=== PATIENT | female | born 1945 | race Caucasian/White ===

== ENCOUNTER → 2018-05-16 14:47 | Outpatient (CLI) | payer MEDICARE, SELFPAY ==
--- NOTE | 2018-05-16 15:44 | CT_ITS ---
CT abdomen pelvis w con CLINICAL INDICATION: Evaluate cecal mass seen on recent colonoscopy ITS.REASON: CECAL MASS ORDERING PHYSICIAN: Ha Arroyo MD PATIENT AGE: 73 years COMPARISON: 09/25/2008 TECHNIQUE: Axial images obtained with sagittal and coronal reformats. All CT scans at the facility use one or more dose reduction, viz: automated exposure control, ma/kV adjustment per patient size (including targeted exams where dose is matched to indication, i.e. head), or iterative reconstruction technique. PROCEDURE: Oral Contrast: Redicat IV Contrast: 75 mL's of Isovue-370. FINDINGS: Lung bases are clear. The liver, spleen, adrenal glands, pancreas, and kidneys have an unremarkable appearance. No renal or ureteral calculi. Prior cholecystectomy without ductal dilatation Asymmetric mucosal thickening is present along the posterior aspect of the cecum measuring up to 1 cm in thickness. There is some minimal blurring of the pericolic fat in this region which may be seen with subserosal spread of neoplasm. Inflammation could also cause this finding. The appendix has an unremarkable appearance. There is no local adenopathy. No evidence of small bowel obstruction. This area of thickening is in the distal and posterior to the ileocecal valve.. Diverticulosis involves the sigmoid colon. There is mild thickening of the rectosigmoid junction. This is nonspecific and could be related to the chronic diverticulosis. Correlate with recent colonoscopy findings. No evidence of diverticulitis. No pelvic abscess adenopathy or focal inflammatory change evident. There are small lymph nodes present in the inguinal region bilaterally. No bony destructive process evident. IMPRESSION: 1. Focal asymmetric thickening involving the posterior aspect of the cecum likely corresponding to the cecal mass noted on recent colonoscopy. Neoplasm is considered. There is some minimal blurring of the pericolic fat which may be seen with subserosal spread or inflammation. 2. No evidence of metastatic disease. 3. Diverticulosis of the sigmoid colon with thickening of the sigmoid colon and rectosigmoid junction nonspecific. Please correlate with recent colonoscopy. No evidence of diverticulitis
== END ==
PROVIDERS: Family Provider Family Medicine; PCP Family Medicine; Visit Provider Surgery
DX: R19.09 Other intra-abdominal and pelvic swelling, mass and lump (principal)
CPT/HCPCS: 74177; Q9967

== ENCOUNTER 2018-06-12 07:30 | Inpatient (IN) ==
--- NOTE | 2018-06-14 09:29 | Operative Note ---
Date of procedure: 06/14/18 Pre-op Diagnosis:: Cecal carcinoma Post-op Diagnosis:: Same Procedure performed:: Right hemicolectomy with ileocolonic anastomosis Surgeon:: Ha Arroyo MD [employer] Merchandising(s):: Sekou Moss MD RESIN COATER:: Bladimir Hill Anesthesia: GETA Estimated blood loss (mL): 250 Clinical Note:: Is a 73-year-old white female with anemia. She recently underwent colonoscopy which revealed several serrated adenomas but she had a fungating lesion at the cecum which was biopsy-proven adenocarcinoma. She did have a rather large polyp near the hepatic flexure which was partially removed and the area was marked with Dorie ink for planned resection to include this area. This returned as a serrated adenoma. She underwent CT scan which revealed narrowing of any metastatic disease and CEA level was within normal limits. Operative findings:: She had a palpable lesion in the cecum. She had adhesions from prior open cholecystectomy. Ileum was adherent to the peritoneum deep in the pelvis. No evidence of any obvious liver metastases. Operative note:: Patient underwent outpatient mechanical and antibiotic bowel preparation the day before the procedure. Consent was obtained. She was taken to the operating room. She was given preoperative intravenous antibiotics and administered low molecular weight heparin for chemical DVT prophylaxis. She did have sequential compression devices placed to bilateral lower extremities. General anesthesia was induced. Ortega catheter was placed. Abdomen was prepped draped in the standard surgical fashion. Midline incision was made. Dissection was carried through subcutaneous tissues using electrocautery. Fascia was incised. Peritoneal cavity was entered and exposure was achieved. The omentum was densely adherent into the left lower quadrant which required some mobilization with electrocautery. Exposure was achieved. The right colon was mobilized by lysing the peritoneum along the white line of Toldt. The ileum was densely adherent into the peritoneal cavity which required mobilization. Mobilization of the colon was carried out around the hepatic flexure and there were adhesions in the right upper quadrant from prior open cholecystectomy. The Dorie ink marking the site of the distal large serrated adenoma was identified near the hepatic flexure. The colon was divided several centimeters beyond this with a JOHN-75 type stapling device. Several centimeters of ileum were resected by dividing it with a JOHN 75 stapling device due to the fact was densely adherent into the pelvis. Once the ileum and colon were mobilized on the mesentery mesentery was scored with electrocautery for planned resection. Mesentery was divided with the Endo seal device. Larger vessels including the right colic and middle colic branches were ligated with 0 Surgilon and divided. Right colon was sent off as specimen been a [id number], functional end-to-end ileocolic anastomosis was created using the JOHN-75 staplers. The anastomotic enterotomy was closed with 2 firings of the TX60 B stapling device. 3-0 Surgilon suture was placed at the confluence staple lines and as well at the staple line angle of the anastomosis. Ecchymosis appeared to be widely patent. The mesenteric defect was closed with running 2-0 Vicryl suture. Peritoneal cavity was thoroughly irrigated with copious amounts of saline and aspirated until clear. There appeared to be good hemostasis. Enteric contents were returned to the normal anatomic position. Nasogastric tube was palpated and found to be in an appropriate position within the gastric lumen. Fascia closed with #2 Novafil x2. Subcutaneous tissues were irrigated. Skin was closed with rashard. Clean dry sterile dressing was applied. Condition: stable Disposition: PACU Specimens:: Right colon Complications:: None immediately apparent
--- NOTE | 2018-06-14 09:44 | Progress Note ---
[facility] Anesthesia Checklist - Structural Data Admitted From: Home Planned Operative Procedure/s: colon resection Consent for Planned Operative Procedure(s) Verified: Yes - Anesthesia Plan Anesthesia Risk discussed: Yes Anesthesia Plan: Verified ASA Class: II Anesthesia Type: General [facility] History I have reviewed the patient's past medical history: Yes Medical History: Reports:: Cancer (colon ca) Denies:: Diabetes Mellitus Type 1, Diabetes Mellitus Type 2, Internal Pacemaker, Lung Disease, MRSA, Seizures Other Medical History: Denies: Blood Transfusion Reaction Other Surgeries: Yes: Other. No: Pacemaker Amputation: No Fractures: No - *Social History Educational Level: Completed High School Smoking Status: Former smoker Alcohol Intake: never Substance Use Type: denies use Occupational Status: retired Housing: house Household Members: spouse - Psychiatric History Expresses thoughts of harming self/others: None Suicide Plan Description: No Plan *Family Hx:: Cancer, Heart Attack
--- NOTE | 2018-06-14 09:44 | Progress Note ---
[facility] Anesthesia Record Part I Intake, IV Amount: 3,300 Estimated blood loss (mL): 250 Urine output (mL): 100 Blood Pressure: 145/88 SaO2: 95 Pulse Rate: 76 Respiratory Rate: 12 Temperature: 97.2 F Patient is:: Awake, Stable Stable to PACU at:: 09:40
--- NOTE | 2018-06-14 09:45 | Progress Note ---
[facility] Anesthesia Record Part II Discharge Time: 10:10 Destination: floor PACU nurse assessment reviewed?: Yes Patient Condition:: Good Anesthesia Complications:: None
--- NOTE | 2018-06-14 11:52 | Pharmacy Consult Notes ---
[facility] Pharmacy VTE Monitoring - Patient Demographics Admission date: 06/14/18 Report Date: 06/14/18 Time: 11:52 Allergies/Adverse Reactions: Patient Allergies No Known Allergies Allergy (Verified 06/03/18 13:50) Height: 1.65 m Weight: 77.111 kg - VTE Risk Clinical Trial Participant: No - Prophylaxis VTE Prophylaxis Ordered?: Yes Types of VTE Prophylaxis: IPCS Thigh High Location of Applied Device: Bilateral Lower Extremeties Pharmacologic Type: Enoxaparin
[2018-06-15 06:06] LABS: Basophils % 0.1 % (0.1-2.0); Eosinophils # 0.1 K/mm3 (0.0-0.4); Eosinophils % 0.5 % (0.1-12.0); Hemoglobin 10.6 g/dL (12.2-16.2); Lymphocytes # 1.4 K/mm3 (0.7-4.5); Lymphocytes % 8.7 K/mm3 (10-50); Mean Corpuscular HGB Conc 29.5 g/dL (31.8-35.4); Mean Corpuscular Hemoglobin 23.4 pg (27.0-31.2); Mean Corpuscular Volume 79.4 fl (81-99); Mean Platelet Volume 6.9 fl (7.4-10.4); Monocytes # 1.1 K/mm3 (0.1-1.0); Neutrophils # 13.4 K/mm3 (1.8-7.8); Neutrophils % 83.6 % (37.0-80.0); Platelet Count 301 K/mm3 (142-424); Red Blood Count 4.53 M/mm3 (4.20-5.40); Red Cell Distribution Width 18.9 % (11.5-17.5)
[2018-06-15 06:36] LABS: Anion Gap 12.2 mEq/L (5-15); Calcium 8.6 mg/dL (8.5-10.1); Potassium 5.2 mmoL/L (3.5-5.1)
[2018-06-15 07:11] LABS: Lymphocytes % 13 % (10-50); Monocytes % 7 % (2-9); Neutrophils % 79 % (42-76); RBC Morphology Normal; Total Cells Counted 100
--- NOTE | 2018-06-15 08:50 | Progress Note ---
Subjective Narrative: feels "OK" this AM Exam Vital signs and Labs for Last 24 Hours: Temp Pulse Resp BP Pulse Ox 98.1 F 88 12 114/67 97 06/15/18 07:49 06/15/18 06:00 06/15/18 06:00 06/15/18 06:00 06/15/18 06:00 Laboratory Results - last 24 hr 06/14/18 06:39: Blood Type Cancelled, Antibody Screen Cancelled, Crossmatch (AHG) See Detail 06/14/18 07:21: Urine Color Yellow, Urine Appearance Clear, Urine pH 5.5, Ur Specific [place] >= 1.030, Urine Protein Negative, Urine Glucose (UA) Negative, Urine Ketones Negative, Urine Blood Negative, Urine Nitrate Negative, Urine Bilirubin Negative, Urine Urobilinogen 0.2, Ur Leukocyte Esterase Trace, Urine RBC None, Urine WBC None, Ur Squamous Epith Cells Occasional, Urine Bacteria 2+ A 06/15/18 05:45: WBC 16.0 H D, RBC 4.53, Hgb 10.6 L, Hct 36.0 L, MCV 79.4 L, MCH 23.4 L, MCHC 29.5 L, RDW 18.9 H, Plt Count 301, MPV 6.9 L, Neut % (Auto) 83.6 H, Lymph % (Auto) 8.7 L, [place] % (Auto) 7.0, Eos % (Auto) 0.5, Baso % (Auto) 0.1, Neut # (Auto) 13.4 H, Lymph # (Auto) 1.4, [place] # (Auto) 1.1 H, Eos # (Auto) 0.1, Baso # (Auto) 0.0, Total Counted 100, Neutrophils % (Manual) 79 H, Band Neutrophils % 1.0, Lymphocytes % (Manual) 13, Monocytes % (Manual) 7, Platelet Estimate Normal, RBC Morphology Normal 06/15/18 05:45: Sodium 140, Potassium 5.2 H, Chloride 104, Carbon Dioxide 29, Anion Gap 12.2, BUN 22 H, Creatinine 1.36 H D, Estimated Creat Clear 50, Estimated GFR 38 L, Est GFR ( Amer) 46 L D, Glucose 136 H, Calcium 8.6 I & O for Last 24 hours: Intake & Output 06/12/18 06/13/18 06/14/18 09/22/18 11:59 11:59 11:59 11:59 Intake Total 3450 / 3450 2418 / 2418 Output Total 55 / 55 250 / 250 Balance 3395 / 3395 2168 / 2168 Weight 170 lb 188 lb 3 oz - Constitutional no acute distress - *Routine Respiratory Exam Absent: respiratory distress - *Routine Abdominal Exam Present: soft Comments: dressing intact. no cellulitis. Progress Note: A&P (1) Carcinoma of cecum Status: Acute Assessment and plan: stable POD1 s/p right colectomy continue NG for now d/c yadav ambulate Current Visit: Yes
--- NOTE | 2018-06-15 08:56 | Progress Note ---
Internal Medicine - PN: Subj *Date: 06/15/18 *Time: 08:53 Interval history: Asked by Dr. Arroyo to follow patient during post operative time. Patient states she feels better today, doesn't have much pain at all, using [employer]. Exam Vital signs and Labs for Last 24 Hours: Temp Pulse Resp BP Pulse Ox 98.1 F 88 12 114/67 97 06/15/18 07:49 06/15/18 06:00 06/15/18 06:00 06/15/18 06:00 06/15/18 06:00 Laboratory Results - last 24 hr 06/14/18 06:39: Blood Type Cancelled, Antibody Screen Cancelled, Crossmatch (AHG) See Detail 06/14/18 07:21: Urine Color Yellow, Urine Appearance Clear, Urine pH 5.5, Ur Specific [place] >= 1.030, Urine Protein Negative, Urine Glucose (UA) Negative, Urine Ketones Negative, Urine Blood Negative, Urine Nitrate Negative, Urine Bilirubin Negative, Urine Urobilinogen 0.2, Ur Leukocyte Esterase Trace, Urine RBC None, Urine WBC None, Ur Squamous Epith Cells Occasional, Urine Bacteria 2+ A 06/15/18 05:45: WBC 16.0 H D, RBC 4.53, Hgb 10.6 L, Hct 36.0 L, MCV 79.4 L, MCH 23.4 L, MCHC 29.5 L, RDW 18.9 H, Plt Count 301, MPV 6.9 L, Neut % (Auto) 83.6 H, Lymph % (Auto) 8.7 L, [place] % (Auto) 7.0, Eos % (Auto) 0.5, Baso % (Auto) 0.1, Neut # (Auto) 13.4 H, Lymph # (Auto) 1.4, [place] # (Auto) 1.1 H, Eos # (Auto) 0.1, Baso # (Auto) 0.0, Total Counted 100, Neutrophils % (Manual) 79 H, Band Neutrophils % 1.0, Lymphocytes % (Manual) 13, Monocytes % (Manual) 7, Platelet Estimate Normal, RBC Morphology Normal 06/15/18 05:45: Sodium 140, Potassium 5.2 H, Chloride 104, Carbon Dioxide 29, Anion Gap 12.2, BUN 22 H, Creatinine 1.36 H D, Estimated Creat Clear 50, Estimated GFR 38 L, Est GFR ( Amer) 46 L D, Glucose 136 H, Calcium 8.6 I & O for Last 24 hours: Intake & Output 06/12/18 06/13/18 06/14/18 06/15/18 11:59 11:59 11:59 11:59 Intake Total 3450 / 3450 2418 / 2418 Output Total 55 / 55 250 / 250 Balance 3395 / 3395 2168 / 2168 Weight 170 lb 188 lb 3 oz - Constitutional no acute distress - *Routine HEENT Exam ENT: Present: mucous membranes moist (NG tube in place) - *Routine Respiratory Exam Present: CTA bilaterally (anteriorly) - *Routine Cardiovascular Exam Present: RRR - *Routine Extremities Exam Absent: cyanosis, clubbing, edema Assessment and Plan (1) Carcinoma of cecum Current visit: Yes Status: Acute Category: Medical Code(s): C18.0 - Malignant neoplasm of cecum (2) Anemia Current visit: Yes Status: Acute Category: Medical Code(s): D64.9 - Anemia, unspecified (3) Post-operative pain Current visit: Yes Status: Acute Category: Medical Code(s): G89.18 - Other acute postprocedural pain - Assessment and plan all Dx Assessment and Plan for all problems:: Post op day #1, doing well, continue current care.
[2018-06-16 06:42] LABS: Basophils % 0.3 % (0.1-2.0); Eosinophils # 0.1 K/mm3 (0.0-0.4); Eosinophils % 0.7 % (0.1-12.0); Hematocrit 32.2 % (37.0-47.0); Hemoglobin 9.6 g/dL (12.2-16.2); Lymphocytes # 1.4 K/mm3 (0.7-4.5); Lymphocytes % 10.7 K/mm3 (10-50); Mean Corpuscular HGB Conc 29.7 g/dL (31.8-35.4); Mean Corpuscular Hemoglobin 23.5 pg (27.0-31.2); Mean Corpuscular Volume 79.2 fl (81-99); Monocytes # 1.1 K/mm3 (0.1-1.0); Monocytes % 8.3 % (1.7-9.3); Neutrophils # 10.2 K/mm3 (1.8-7.8); Platelet Count 280 K/mm3 (142-424); Red Blood Count 4.07 M/mm3 (4.20-5.40); White Blood Count 12.8 K/mm3 (4.8-10.8)
[2018-06-16 06:50] LABS: Calcium 8.1 mg/dL (8.5-10.1)
--- NOTE | 2018-06-16 10:10 | Progress Note ---
Subjective Patient reports: no new complaints (POD#2), no flatus, no bowel movement Exam Vital signs and Labs for Last 24 Hours: Temp Pulse Resp BP Pulse Ox 100.0 F H 99 H 16 133/75 96 06/16/18 07:44 06/16/18 06:00 06/16/18 06:00 06/16/18 06:00 06/16/18 08:00 Laboratory Results - last 24 hr 06/16/18 06:16: WBC 12.8 H, RBC 4.07 L, Hgb 9.6 L, Hct 32.2 L, MCV 79.2 L, MCH 23.5 L, MCHC 29.7 L, RDW 19.0 H, Plt Count 280, MPV 7.0 L, Neut % (Auto) 80.0, Lymph % (Auto) 10.7, [place] % (Auto) 8.3, Eos % (Auto) 0.7, Baso % (Auto) 0.3, Neut # (Auto) 10.2 H, Lymph # (Auto) 1.4, [place] # (Auto) 1.1 H, Eos # (Auto) 0.1, Baso # (Auto) 0.0 06/16/18 06:16: Sodium 140, Potassium 4.0 D, Chloride 105, Carbon Dioxide 30, Anion Gap 9.0, BUN 13 D, Creatinine 0.92 D, Estimated Creat Clear 68, Estimated GFR 60, Est GFR ( Amer) 72 D, Glucose 125 H, Calcium 8.1 L I & O for Last 24 hours: Intake & Output 06/13/18 06/14/18 06/15/18 06/16/18 11:59 11:59 11:59 11:59 Intake Total 3450 / 3450 2418 / 2418 4002 / 4002 Output Total 55 / 55 400 / 400 1480 / 1480 Balance 3395 / 3395 2017 2522 / 2522 Weight 170 lb 188 lb 3 oz Microbiology Reports for the Last 24 Hours: Microbiology 06/14/18 07:21 Urine,Catheterized Urine Culture - Final NO GROWTH AFTER 48 HOURS - Constitutional no acute distress - *Routine Respiratory Exam Absent: respiratory distress - *Routine Cardiovascular Exam Present: RRR - *Routine Abdominal Exam Present: soft Comments: incision c/d/i no erythema Progress Note: A&P (1) Carcinoma of cecum Status: Acute Assessment and plan: stable s/p right colectomy...post-op ileus as expected wean O2 to off increase ambulation IS NG to drain (? d/c later today) Current Visit: Yes (2) Anemia Status: Acute Current Visit: Yes (3) Post-operative pain Status: Acute Current Visit: Yes
--- NOTE | 2018-06-16 10:46 | Progress Note ---
Internal Medicine - PN: Subj *Date: 06/16/18 *Time: 10:44 Interval history: Patient with no new complaints today. SHe has been up out of the bed and walked in the loo. She is back in bed now, NG tube continuous suction has been stopped. Exam Vital signs and Labs for Last 24 Hours: Temp Pulse Resp BP Pulse Ox 100.0 F H 93 H 16 121/56 96 06/16/18 07:44 06/16/18 10:00 06/16/18 10:00 06/16/18 10:00 06/16/18 10:00 Laboratory Results - last 24 hr 06/16/18 06:16: WBC 12.8 H, RBC 4.07 L, Hgb 9.6 L, Hct 32.2 L, MCV 79.2 L, MCH 23.5 L, MCHC 29.7 L, RDW 19.0 H, Plt Count 280, MPV 7.0 L, Neut % (Auto) 80.0, Lymph % (Auto) 10.7, [place] % (Auto) 8.3, Eos % (Auto) 0.7, Baso % (Auto) 0.3, Neut # (Auto) 10.2 H, Lymph # (Auto) 1.4, [place] # (Auto) 1.1 H, Eos # (Auto) 0.1, Baso # (Auto) 0.0 06/16/18 06:16: Sodium 140, Potassium 4.0 D, Chloride 105, Carbon Dioxide 30, Anion Gap 9.0, BUN 13 D, Creatinine 0.92 D, Estimated Creat Clear 68, Estimated GFR 60, Est GFR ( Amer) 72 D, Glucose 125 H, Calcium 8.1 L I & O for Last 24 hours: Intake & Output 06/13/18 06/14/18 06/15/18 06/16/18 11:59 11:59 11:59 11:59 Intake Total 3450 / 3450 2418 / 2418 4002 / 4002 Output Total 55 / 55 400 / 400 2080 / 2080 Balance 3395 / 3395 2017 / 1921 Weight 170 lb 188 lb 3 oz Microbiology Reports for the Last 24 Hours: Microbiology 06/14/18 07:21 Urine,Catheterized Urine Culture - Final NO GROWTH AFTER 48 HOURS - Constitutional no acute distress - *Routine HEENT Exam ENT: Present: mucous membranes moist (NG tube in place) - *Routine Respiratory Exam Present: CTA bilaterally (anteriorly) - *Routine Cardiovascular Exam Present: RRR - *Routine Extremities Exam Absent: cyanosis, clubbing, edema Assessment and Plan (1) Carcinoma of cecum Current visit: Yes Status: Acute Category: Medical Code(s): C18.0 - Malignant neoplasm of cecum (2) Anemia Current visit: Yes Status: Acute Category: Medical Code(s): D64.9 - Anemia, unspecified (3) Post-operative pain Current visit: Yes Status: Acute Category: Medical Code(s): G89.18 - Other acute postprocedural pain - Assessment and plan all Dx Assessment and Plan for all problems:: POD #2 doing well, continue current care.
[2018-06-17 05:50] LABS: Basophils % 0.4 % (0.1-2.0); Eosinophils # 0.1 K/mm3 (0.0-0.4); Eosinophils % 1.6 % (0.1-12.0); Hemoglobin 8.7 g/dL (12.2-16.2); Lymphocytes # 1.6 K/mm3 (0.7-4.5); Lymphocytes % 17.2 K/mm3 (10-50); Mean Corpuscular HGB Conc 29.5 g/dL (31.8-35.4); Mean Corpuscular Hemoglobin 23.5 pg (27.0-31.2); Mean Corpuscular Volume 79.6 fl (81-99); Monocytes # 0.7 K/mm3 (0.1-1.0); Monocytes % 7.2 % (1.7-9.3); Neutrophils # 6.7 K/mm3 (1.8-7.8); Neutrophils % 73.6 % (37.0-80.0); Platelet Count 249 K/mm3 (142-424); Red Cell Distribution Width 18.8 % (11.5-17.5); White Blood Count 9.1 K/mm3 (4.8-10.8)
[2018-06-17 05:52] LABS: Hematocrit 29.5 % (37.0-47.0)
--- NOTE | 2018-06-17 07:57 | Progress Note ---
Subjective Patient reports: feels better Narrative: Patient feels well without complaints. Not passing flatus. No nausea since NG out. Voiding without difficulty. Exam Vital signs and Labs for Last 24 Hours: Temp Pulse Resp BP Pulse Ox 98.6 F 79 11 L 137/65 99 06/17/18 04:00 06/17/18 06:00 06/17/18 06:00 06/17/18 06:00 06/17/18 06:00 Laboratory Results - last 24 hr 06/17/18 05:22: WBC 9.1 D, RBC 3.70 L, Hgb 8.7 L, Hct 29.5 L, MCV 79.6 L, MCH 23.5 L, MCHC 29.5 L, RDW 18.8 H, Plt Count 249, MPV 7.0 L, Neut % (Auto) 73.6, Lymph % (Auto) 17.2, [place] % (Auto) 7.2, Eos % (Auto) 1.6, Baso % (Auto) 0.4, Neut # (Auto) 6.7, Lymph # (Auto) 1.6, [place] # (Auto) 0.7, Eos # (Auto) 0.1, Baso # (Auto) 0.0 I & O for Last 24 hours: Intake & Output 06/14/18 06/15/18 06/16/18 06/17/18 11:59 11:59 11:59 11:59 Intake Total 3450 / 3450 2418 / 2418 4002 / 4002 3211 / 3211 Output Total 55 / 55 400 / 400 2080 / 2080 1100 / 1100 Balance 3395 / 3395 2017 / 1921 2110 / 2110 Weight 170 lb 188 lb 3 oz 200 lb 1 oz Microbiology Reports for the Last 24 Hours: Microbiology 06/14/18 07:21 Urine,Catheterized Urine Culture - Final NO GROWTH AFTER 48 HOURS - Constitutional no acute distress - *Routine Respiratory Exam Comments: Mild wheezes on LEFT - *Routine Abdominal Exam Present: soft Comments: Incision clean, minimal bruising. Progress Note: A&P (1) Carcinoma of cecum Status: Acute Current Visit: Yes (2) Anemia Status: Acute Current Visit: Yes (3) Post-operative pain Status: Acute Current Visit: Yes Assessment and Plan for All Diagnoses:: Stop WING COVERER. Patient may have sips clears. Ambulate. Wean oxygen. Monitor HH.
--- NOTE | 2018-06-17 09:03 | Progress Note ---
Internal Medicine - PN: Subj *Date: 06/17/18 *Time: 09:01 Interval history: Patient with no new complaints today. Exam Vital signs and Labs for Last 24 Hours: Temp Pulse Resp BP Pulse Ox 98.0 F 79 19 153/71 91 L 06/17/18 08:00 06/17/18 08:00 06/17/18 08:00 06/17/18 08:00 06/17/18 08:00 Laboratory Results - last 24 hr 06/17/18 05:22: WBC 9.1 D, RBC 3.70 L, Hgb 8.7 L, Hct 29.5 L, MCV 79.6 L, MCH 23.5 L, MCHC 29.5 L, RDW 18.8 H, Plt Count 249, MPV 7.0 L, Neut % (Auto) 73.6, Lymph % (Auto) 17.2, [place] % (Auto) 7.2, Eos % (Auto) 1.6, Baso % (Auto) 0.4, Neut # (Auto) 6.7, Lymph # (Auto) 1.6, [place] # (Auto) 0.7, Eos # (Auto) 0.1, Baso # (Auto) 0.0 I & O for Last 24 hours: Intake & Output 06/14/18 06/15/18 06/16/18 06/17/18 11:59 11:59 11:59 11:59 Intake Total 3450 / 3450 2418 / 2418 4002 / 4002 3211 / 3211 Output Total 55 / 55 400 / 400 2080 / 2080 1400 / 1400 Balance 3395 / 3395 2017 / 192 1811 / 1811 Weight 170 lb 188 lb 3 oz 200 lb 1 oz Microbiology Reports for the Last 24 Hours: Microbiology 06/14/18 07:21 Urine,Catheterized Urine Culture - Final NO GROWTH AFTER 48 HOURS - Constitutional no acute distress (sitting in chair, NG tube is out) - *Routine Respiratory Exam Present: CTA bilaterally - *Routine Cardiovascular Exam Present: RRR - *Routine Extremities Exam Absent: cyanosis, clubbing, edema Assessment and Plan (1) Carcinoma of cecum Current visit: Yes Status: Acute Category: Medical Code(s): C18.0 - Malignant neoplasm of cecum (2) Anemia Current visit: Yes Status: Acute Category: Medical Code(s): D64.9 - Anemia, unspecified (3) Post-operative pain Current visit: Yes Status: Acute Category: Medical Code(s): G89.18 - Other acute postprocedural pain - Assessment and plan all Dx Assessment and Plan for all problems:: POD #3, H/H lower today, continue treatment per surgery orders.
--- NOTE | 2018-06-18 06:59 | Progress Note ---
Subjective Patient reports: feels better Narrative: Patient has been tolerating some clear liquids without difficulty. Had some small liquid bowel movements. Exam Vital signs and Labs for Last 24 Hours: Temp Pulse Resp BP Pulse Ox 97.8 F 80 18 158/72 996 H 06/18/18 04:00 06/18/18 04:00 06/18/18 04:00 06/18/18 04:00 06/18/18 04:00 I & O for Last 24 hours: Intake & Output 06/15/18 06/16/18 06/17/18 06/18/18 11:59 11:59 11:59 11:59 Intake Total 2418 / 2418 4002 / 4002 3331 / 3331 3014 / 3014 Output Total 400 / 400 2080 / 2080 1400 / 1400 1999 / 1999 Balance 2017 / 2017 192 / 1922 193 / 1931 1014 / 1014 Weight 188 lb 3 oz 200 lb 1 oz - Constitutional no acute distress - *Routine Abdominal Exam Present: soft Comments: Hypoactive bowel sounds. Progress Note: A&P (1) Carcinoma of cecum Status: Acute Current Visit: Yes (2) Anemia Status: Acute Current Visit: Yes (3) Post-operative pain Status: Acute Current Visit: Yes Assessment and Plan for All Diagnoses:: Labs pending this morning. I will go ahead and give full liquid diet.
[2018-06-18 08:02] LABS: Hematocrit 32.5 % (37.0-47.0); Hemoglobin 9.6 g/dL (12.2-16.2)
--- NOTE | 2018-06-18 09:16 | Progress Note ---
Internal Medicine - PN: Subj *Date: 06/18/18 *Time: 09:14 Interval history: Patient feels better today, no new complaints. Exam Vital signs and Labs for Last 24 Hours: Temp Pulse Resp BP Pulse Ox 98.1 F 95 H 16 170/83 95 06/18/18 08:00 06/18/18 08:00 06/18/18 08:00 06/18/18 08:00 06/18/18 08:00 Laboratory Results - last 24 hr 06/18/18 07:40: Hgb 9.6 L, Hct 32.5 L I & O for Last 24 hours: Intake & Output 06/15/18 06/16/18 06/17/18 06/18/18 11:59 11:59 11:59 11:59 Intake Total 2418 / 2418 4002 / 4002 3331 / 3331 3014 / 3014 Output Total 400 / 400 2080 / 2080 1400 / 1400 1999 / 1999 Balance 2017 / 2017 1922 / 192 1931 / 193 1014 / 1014 Weight 188 lb 3 oz 200 lb 1 oz - Constitutional no acute distress - *Routine HEENT Exam Head: Present: normocephalic Eye: Present: EOMI, PERRL ENT: Present: mucous membranes moist - *Routine Neck Exam Present: supple. Absent: lymphadenopathy - *Routine Respiratory Exam Present: CTA bilaterally - *Routine Cardiovascular Exam Present: RRR - *Routine Extremities Exam Absent: cyanosis, clubbing, edema - *Routine Skin Exam Present: warm. Absent: rash - *Routine Neurological Exam Present: alert, oriented X3 Assessment and Plan (1) Carcinoma of cecum Current visit: Yes Status: Acute Category: Medical Code(s): C18.0 - Malignant neoplasm of cecum (2) Anemia Current visit: Yes Status: Acute Category: Medical Code(s): D64.9 - Anemi a, unspecified (3) Post-operative pain Current visit: Yes Status: Acute Category: Medical Code(s): G89.18 - Other acute postprocedural pain - Assessment and plan all Dx Assessment and Plan for all problems:: POD #4, doing well, continue routine care, H/H higher today.
--- NOTE | 2018-06-19 06:53 | Progress Note ---
Subjective Patient reports: feels better Narrative: Patient feels well. Some liquid bowel movement. Taking some full liquids. Exam Vital signs and Labs for Last 24 Hours: Temp Pulse Resp BP Pulse Ox 98.2 F 85 18 163/78 97 06/19/18 04:00 06/19/18 04:00 06/19/18 04:00 06/19/18 04:00 06/19/18 04:00 Laboratory Results - last 24 hr 06/18/18 07:40: Hgb 9.6 L, Hct 32.5 L I & O for Last 24 hours: Intake & Output 06/16/18 06/17/18 06/18/18 06/19/18 11:59 11:59 11:59 11:59 Intake Total 4002 / 4002 3331 / 3331 3014 / 3014 1100 / 1100 Output Total 2080 / 2080 1400 / 1400 1999 / 1999 0 / 0 Balance 1922 / 1922 1931 / 1931 1014 / 1014 1100 / 1100 Weight 200 lb 1 oz 181 lb - *Routine Abdominal Exam Present: soft Comments: Incision clean. Hypoactive bowel sounds. Progress Note: A&P (1) Carcinoma of cecum Status: Acute Current Visit: Yes (2) Anemia Status: Acute Current Visit: Yes (3) Post-operative pain Status: Acute Current Visit: Yes Assessment and Plan for All Diagnoses:: Possible discharge later today if tolerating acceptable oral intake.
--- NOTE | 2018-06-19 08:28 | Progress Note ---
Internal Medicine - PN: Subj *Date: 06/19/18 *Time: 08:27 Interval history: Patient with no new complaints. Exam Vital signs and Labs for Last 24 Hours: Temp Pulse Resp BP Pulse Ox 98.4 F 85 18 173/79 98 06/19/18 07:26 06/19/18 07:26 06/19/18 07:26 06/19/18 07:26 06/19/18 07:26 I & O for Last 24 hours: Intake & Output 06/16/18 06/17/18 06/18/18 06/19/18 11:59 11:59 11:59 11:59 Intake Total 4002 / 4002 3331 / 3331 3014 / 3014 1100 / 1100 Output Total 2080 / 2080 1400 / 1400 1999 / 1999 0 / 0 Balance 1922 / 1922 1931 / 1931 1014 / 1014 1100 / 1100 Weight 200 lb 1 oz 181 lb Assessment and Plan (1) Carcinoma of cecum Current visit: Yes Status: Acute Category: Medical Code(s): C18.0 - Malignant neoplasm of cecum (2) Anemia Current visit: Yes Status: Acute Category: Medical Code(s): D64.9 - Anemia, unspecified (3) Post-operative pain Current visit: Yes Status: Acute Category: Medical Code(s): G89.18 - Other acute postprocedural pain - Assessment and plan all Dx Assessment and Plan for all problems:: OK for discharge per Surgery, would like to see patient in office in 2 weeks.
--- NOTE | 2018-06-19 12:48 | Discharge Summary ---
General - General Admission date:: 06/14/18 Discharge date: 06/19/18 HPI HPI: She is a 73-year-old white female with iron deficiency anemia. 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 She underwent radiographic staging which was unremarkable. Plan was made for resection. Hospital Course Hospital Course: She was admitted and taken to the operating room on 06/14/18 at which time she underwent right hemicolectomy. Please see operative dictation for complete details. She was admitted to the stepdown unit postoperatively. She did well postoperatively and on postoperative day #1 she was found to have some slight increase in her baseline creatinine and was given additional IV fluids. This resulted in normalization. She had her Ortega catheter removed. Nasogastric tube was somewhat intermittently functioning over the first 24 hours after surgery. For this remained in place and was ultimately able to be discharged in the afternoon of postoperative day #2. She was given ice chips and encouraged to use some gum. She had passed some minimal liquid stool and was given a clear liquid diet. By postoperative day #4 patient was passing some liquid stools and tolerating clear liquid diet. Her diet was advanced to full liquids. She did show some slight decrease in her hemoglobin and hematocrit but this had stabilized and actually increased later in her hospital stay. Patient was tolerating a full liquid diet and moving her bowels on postoperative day #5 and the plan was made for discharge home at this time Objective Vital signs: Temp Pulse Resp BP Pulse Ox 98.4 F 85 18 173/79 98 06/19/18 07:26 06/19/18 07:26 06/19/18 07:26 06/19/18 07:26 06/19/18 08:00 DS: Diagnosis - Discharge Diagnosis (1) Carcinoma of cecum Status: Acute (2) Anemia Status: Acute (3) Post-operative pain Status: Acute Discharge Plan - Patient Discharge Instructions ACTIVITY: No heavy lifting DIET: advance to your usual diet Patient Instructions: Colectomy -- Open Surgery, Surgical Site Infection - Follow up Plan Follow up with: Ha Arroyo MD [Staff Physician] - 06/24/18 Disposition: Home, Self-Care Prescriptions/Medication Reconciliation: New Hydrocod/Acet 5/325 mg [Dickens 5/325mg tablet] 1 - 2 tab PO Q6HP PRN #21 tab PRN Reason: Moderate Pain Discontinued Neomycin Sulfate 500 mg PO DAILY metroNIDAZOLE [metroNIDAZOLE 500mg Tablet] 1,000 mg PO TID [id number]/Sod Sul/NaCl/Asb/C/KCl [MoviPrep] 240 ml PO Q15M
== END 2018-06-19 13:03 | disposition home or self-care (01) ==
LOC: 2ND 06-14 06:07 → EDSTATUS 06-14 07:30 → 2ND 06-14 17:34
PROVIDERS: ADMIT Surgery; ATTEND Surgery

== ENCOUNTER → 2018-06-13 07:14 | Outpatient (CLI) | payer MEDICARE, SELFPAY ==
[2018-06-13 09:25] LABS: Basophils # 0.1 K/mm3 (0-0.2); Basophils % 0.9 % (0.1-2.0); Eosinophils # 0.3 K/mm3 (0.0-0.4); Eosinophils % 2.9 % (0.1-12.0); Hematocrit 41.2 % (37.0-47.0); Hemoglobin 12.4 g/dL (12.2-16.2); Lymphocytes # 2.2 K/mm3 (0.7-4.5); Lymphocytes % 23.9 K/mm3 (10-50); Mean Corpuscular HGB Conc 30.1 g/dL (31.8-35.4); Mean Corpuscular Hemoglobin 23.7 pg (27.0-31.2); Mean Corpuscular Volume 78.9 fl (81-99); Mean Platelet Volume 8.3 fl (7.4-10.4); Monocytes # 0.7 K/mm3 (0.1-1.0); Monocytes % 7.6 % (1.7-9.3); Neutrophils # 5.9 K/mm3 (1.8-7.8); Neutrophils % 64.7 % (37.0-80.0); Platelet Count 311 K/mm3 (142-424); Red Blood Count 5.22 M/mm3 (4.20-5.40); Red Cell Distribution Width 19.3 % (11.5-17.5); White Blood Count 9.1 K/mm3 (4.8-10.8)
[2018-06-13 09:41] LABS: Anion Gap 13.6 mEq/L (5-15); Blood Urea Nitrogen 18 mg/dL (7-18); Calcium 8.7 mg/dL (8.5-10.1); Carbon Dioxide 26 mmol/L (21.0-32.0); Chloride 107 mmol/L (98-107); Creatinine,Serum 0.89 mg/dL (0.55-1.02); Estimated Glomerular Filt Rate 62 ml/min (>60); GFR (African American) 75 ML/MIN (>60); Glucose 117 mg/dL (74-106); Potassium 4.6 mmoL/L (3.5-5.1); Sodium 142 mmol/L (136-145)
== END ==
PROVIDERS: PCP Family Medicine; Visit Provider Surgery
DX: C18.0 Malignant neoplasm of cecum (principal)
CPT/HCPCS: 36415; 80048; 85025; 86850

== ENCOUNTER → 2018-12-10 09:51 | Outpatient (CLI) | payer MEDICARE, SELFPAY ==
[2018-12-10 09:56] LABS: Adenovirus F 40/41, stool Not Detected (NotDetected); Astrovirus Not Detected (NotDetected); Campylobacter Not Detected (NotDetected); Cryptosporidium Not Detected (NotDetected); Cyclospora Cayetanesis Not Detected (NotDetected); Entamoeba histolytica Not Detected (NotDetected); Enteroaggregative E coli Not Detected (NotDetected); Enteropathogenic E coli Not Detected (NotDetected); Enterotoxigenic E coli Not Detected (NotDetected); Giardia lamblia Not Detected (NotDetected); Norovirus Not Detected (NotDetected); Plesimonas Shigalloides, PCR Not Detected (NotDetected); Rotavirus A Not Detected (NotDetected); Salmonella, PCR Not Detected (NotDetected); Sapovirus Not Detected (NotDetected); Shiga-like toxin E coli Not Detected (NotDetected); Shigella Enterovasive E coli Not Detected (NotDetected); Vibrio Cholerae Not Detected (NotDetected); Vibrio, PCR Not Detected (NotDetected); Yersinia Entercolitica, PCR Not Detected (NotDetected)
[2018-12-10 13:07] LABS: Clostridium Difficile A/B, PCR Detected (NotDetected)
== END ==
PROVIDERS: Visit Provider Surgery
DX: K52.9 Noninfective gastroenteritis and colitis, unspecified (principal); C18.0 Malignant neoplasm of cecum
CPT/HCPCS: 87506

== ENCOUNTER → 2019-03-07 07:40 | Outpatient (CLI) | payer MEDICARE, SELFPAY ==
--- NOTE | 2019-03-07 07:44 | CT_ITS ---
CT lung screening EXAM: CT LUNG LOW DOSE WO CONTRAST HISTORY: 45 pack year smoking history, asymptomatic for lung cancer ITS.REASON: H/O NICOTINE DEPENDENCE ORDERING PHYSICIAN: Elpidio Quinteros MD PATIENT AGE: 74 years COMPARISON: None TECHNIQUE: The exam was performed on a GE Light Speed [address] scanner using 2.90 mGy CTDI. A low dose helical CT CHEST was performed on a multi-detector scanner. All CT scans at the facility use one or more dose reduction, viz: automated exposure control, ma/kV adjustment per patient size (including targeted exams where dose is matched to indication, i.e. head), or iterative reconstruction technique. The LDCT was performed in a facility that meets the criteria for the screening program. Data regarding this exam was submitted to ACR which is an approved registry. The order for this exam indicates that it came as a result of a lung cancer screening counseling shard decision-making visit that included all the elements required of such a visit including smoking cessation. The radiologist interpreting this exam meets the [facility] criteria for the LDCT lung cancer screening program. The exam is reported using the Lung-RADS classification scale and reported to the ACR registry. NOTE: This study was performed for the specific purposes of lung cancer screening and is not an alternative to diagnostic chest CT. RADIATION DOSE: CTDI vol(CT dose Index-volume) = 2.90mG DLP (Dose Length Product) = 106.55 mGcm FINDINGS: COPD. Biapical fibrotic changes. Stable 3 mm subpleural nodule right lower lobe posteriorly. There are 2 stable 3 mm subpleural nodular density right upper lobe laterally image #51 and right upper lobe laterally image #51. Coronary artery calcifications noted. IMPRESSION: 1. Lung RADS Category: 2, benign 2. Other findings: COPD, fibrotic changes, coronary artery calcification RECOMMENDATIONS: 12 month LDCT follow-up
== END ==
PROVIDERS: PCP Family Medicine; Visit Provider Family Medicine
DX: Z12.2 Encounter for screening for malignant neoplasm of respiratory organs (principal); Z87.891 Personal history of nicotine dependence

== ENCOUNTER → 2019-03-14 09:54 | Outpatient (CLI) | payer MEDICARE, SELFPAY ==
[2019-03-14 11:41] LABS: Blood Urea Nitrogen 14 mg/dL (7-18); Creatinine,Serum 1.28 mg/dL (0.55-1.02); Estimated Glomerular Filt Rate 41 ml/min (>60); GFR (African American) 49 ML/MIN (>60)
== END ==
PROVIDERS: Visit Provider Surgery
DX: R10.9 Unspecified abdominal pain (principal); R19.00 Intra-abdominal and pelvic swelling, mass and lump, unspecified site; R19.7 Diarrhea, unspecified; Z85.038 Personal history of other malignant neoplasm of large intestine
CPT/HCPCS: 36415; 82565; 84520

== ENCOUNTER → 2019-03-19 08:18 | Outpatient (CLI) | payer MEDICARE, SELFPAY ==
--- NOTE | 2019-03-19 08:19 | CT_ITS ---
CT abdomen pelvis w con CLINICAL INDICATION: ITS.REASON: HO colon cancer, abdominal pain/swelling, diarhea ORDERING PHYSICIAN: Ha Arroyo MD PATIENT AGE: 74 years COMPARISON: (11/01/2018. TECHNIQUE: Axial images obtained with sagittal and coronal reformats. All CT scans at the facility use one or more dose reduction, viz: automated exposure control, ma/kV adjustment per patient size (including targeted exams where dose is matched to indication, i.e. head), or iterative reconstruction technique. PROCEDURE: Oral Contrast: Yes IV Contrast: Yes. FINDINGS: Lower thorax: No acute finding Liver is stable without focal lesion. Spleen, pancreas and adrenal glands are normal. Kidneys and urinary bladder are normal. There are aortic calcified plaques without dilatation. Patient underwent prior partial colectomy on the right side. There is no small bowel or colonic dilatation. Right side of the colon. Normal. However there is focal wall thickening and narrowing of the distal transverse colon on image #71. The length of the thickening is 1.5 cm and is slightly longer than expected for normal focal peristalsis. Also noted are the sigmoid diverticula with diffuse wall thickening which is somewhat greater at the rectosigmoid area. Some of this thickening was present on the prior CT scan. Pelvis is otherwise unremarkable without abnormal adenopathy. There is no acute osseous process. IMPRESSION: Distal transverse colon finding perhaps still could be related to peristalsis although slightly longer than expected for peristalsis and considering the patient's history, suggest repeat colonoscopy or close follow-up CT exam with IV and oral contrast at 2 or 3 months to evaluate this area. Persistent sigmoid wall thickening present on the prior study along with diverticulosis. This could be from chronic diverticulitis although could also be evaluated with repeat colonoscopy or close follow-up.
== END ==
PROVIDERS: PCP Family Medicine; Visit Provider Surgery
DX: R10.9 Unspecified abdominal pain (principal); R19.00 Intra-abdominal and pelvic swelling, mass and lump, unspecified site; Z85.038 Personal history of other malignant neoplasm of large intestine
CPT/HCPCS: 74177; Q9967

== ENCOUNTER → 2019-03-25 15:21 | Outpatient (CLI) | payer MEDICARE, SELFPAY ==
[2019-03-25 15:25] LABS: Adenovirus F 40/41, stool Not Detected (NotDetected); Astrovirus Not Detected (NotDetected); Campylobacter Not Detected (NotDetected); Cryptosporidium Not Detected (NotDetected); Cyclospora Cayetanesis Not Detected (NotDetected); Entamoeba histolytica Not Detected (NotDetected); Enteroaggregative E coli Not Detected (NotDetected); Enteropathogenic E coli Not Detected (NotDetected); Enterotoxigenic E coli Not Detected (NotDetected); Giardia lamblia Not Detected (NotDetected); Norovirus Not Detected (NotDetected); Plesimonas Shigalloides, PCR Not Detected (NotDetected); Rotavirus A Not Detected (NotDetected); Salmonella, PCR Not Detected (NotDetected); Sapovirus Not Detected (NotDetected); Shiga-like toxin E coli Not Detected (NotDetected); Shigella Enterovasive E coli Not Detected (NotDetected); Vibrio Cholerae Not Detected (NotDetected); Vibrio, PCR Not Detected (NotDetected); Yersinia Entercolitica, PCR Not Detected (NotDetected)
[2019-03-25 19:41] LABS: Clostridium Difficile A/B, PCR Detected (NotDetected)
== END ==
PROVIDERS: Visit Provider Surgery
DX: R19.7 Diarrhea, unspecified (principal); A04.72 Enterocolitis due to Clostridium difficile, not specified as recurrent
CPT/HCPCS: 87506

== ENCOUNTER → 2019-04-23 09:46 | Outpatient (CLI) | payer MEDICARE, SELFPAY ==
[2019-04-23 09:49] LABS: Adenovirus F 40/41, stool Not Detected (NotDetected); Astrovirus Not Detected (NotDetected); Campylobacter Not Detected (NotDetected); Clostridium Difficile A/B, PCR Not Detected (NotDetected); Cryptosporidium Not Detected (NotDetected); Cyclospora Cayetanesis Not Detected (NotDetected); Entamoeba histolytica Not Detected (NotDetected); Enteroaggregative E coli Not Detected (NotDetected); Enteropathogenic E coli Not Detected (NotDetected); Enterotoxigenic E coli Not Detected (NotDetected); Giardia lamblia Not Detected (NotDetected); Norovirus Not Detected (NotDetected); Plesimonas Shigalloides, PCR Not Detected (NotDetected); Rotavirus A Not Detected (NotDetected); Salmonella, PCR Not Detected (NotDetected); Sapovirus Not Detected (NotDetected); Shiga-like toxin E coli Not Detected (NotDetected); Shigella Enterovasive E coli Not Detected (NotDetected); Vibrio Cholerae Not Detected (NotDetected); Vibrio, PCR Not Detected (NotDetected); Yersinia Entercolitica, PCR Not Detected (NotDetected)
== END ==
PROVIDERS: Visit Provider Surgery
DX: Z86.19 Personal history of other infectious and parasitic diseases (principal); R19.7 Diarrhea, unspecified; C18.0 Malignant neoplasm of cecum
CPT/HCPCS: 87506

== ENCOUNTER → 2019-06-24 10:14 | Outpatient (CLI) | payer MEDICARE, SELFPAY ==
--- NOTE | 2019-06-24 10:16 | MM_ITS ---
PROCEDURE: MM DIG SCREENING MAMM BI W/CAD CLINICAL INDICATION: screening There is a history of breast cancer in patient's sister diagnosed before menopause and in the patient's maternal aunt diagnosed after menopause. COMPARISON: DMSB DIG MAMM-SCREEN [facility] from 08/04/2014 DMDXUAVR DIG MAMM-DX UNI ADD VIEWS-RT from 08/25/2014 DMSB DIG MAMM-SCREEN [facility] W/CAD from 05/11/2017 TECHNIQUE: Standard CC and MLO images were obtained. R2 CAD reviewed. FINDINGS: Prominent somewhat heterogenic fibroglandular densities are seen in the central portions of both breasts somewhat decreasing sensitivity of mammography. There are multiple scattered benign-appearing micro and macrocalcifications in each breast. There are multiple small nodes in both axilla some which are low-lying on both sides. There is no new or suspicious lesion in either breast and no suspicious microcalcifications. IMPRESSION: Moderate heterogenic breast density with no suspicious lesions seen BI-RAD Category: 2 Benign Finding(s) FOLLOW-UP: 1YR 1 Year Follow-up (A letter has been sent to the patient regarding results of the study.) Dictated by: Dr. Franki Rubio MD 06/28/2019 08:[address] Franki Rubio MD in [place] 06/28/2019 08:35
== END ==
PROVIDERS: PCP Family Medicine; Visit Provider Family Medicine
DX: Z12.31 Encounter for screening mammogram for malignant neoplasm of breast (principal)
CPT/HCPCS: 77067

== ENCOUNTER → 2020-02-01 08:45 | Outpatient (CLI) | payer MEDICARE, SELFPAY ==
[2020-02-01 13:59] LABS: Adenovirus,PCR Not Detected (NotDetected); Bordetella Pertussis Not Detected (NotDetected); Chlamydophila Pneumoniae, PCR Not Detected (NotDetected); Coronavirus 19, PCR Not Detected (NotDetected); Coronavirus 229E Not Detected (NotDetected); Coronavirus NL63 Not Detected (NotDetected); Coronavirus OC43 Not Detected (NotDetected); Coronovirus HKU1,PCR Not Detected (NotDetected); Human Metapneumovirus Not Detected (NotDetected); Influenza A, PCR Not Detected (NotDetected); Influenza AH1, 2009 Not Detected (NotDetected); Influenza AH1, PCR Not Detected (NotDetected); Influenza AH3,PCR Not Detected (NotDetected); Influenza B, PCR Not Detected (NotDetected); Mycoplasma Pneumoniae, PCR Not Detected (NotDected); Parainfluenza 1, PCR Not Detected (NotDetected); Parainfluenza 2, PCR Not Detected (NotDetected); Parainfluenza 3, PCR Not Detected (NotDetected); Parainfluenza 4, PCR Not Detected (NotDetected); Respiratory Syncytial Virus Not Detected (NotDetected); Rhinovirus/Enterovirus Not Detected (NotDetected)
== END ==
PROVIDERS: PCP Family Medicine; Visit Provider Surgery
DX: Z01.818 Encounter for other preprocedural examination (principal)
CPT/HCPCS: 87581; 87633; 87798

== ENCOUNTER 2020-02-03 07:07 | Day surgery (SDC) | payer MEDICARE, SELFPAY ==
--- NOTE | 2020-01-29 10:03 | SUR.PREOP ---
01/29/2020 @ 1004--PHONE CALL MADE TO PATIENT. PATIENT UNDERSTANDS THAT LAB WORK AND COVID TESTING NEEDS TO BE COMPLETED @ 0900 ON 02/01/2020 . PATIENT UNDERSTANDS IF LAB WORK AND COVID-19 TESTS ARE NOT COMPLETED BY 12PM ON THAT DATE, THE SURGERY SCHEDULED WILL BE CANCELLED AND RESCHEDULED FOR ANOTHER TIME.
[2020-02-03 07:20] VITALS: BP 173/95; PULSE 87; RESP 18; TEMP 36.4; O2SAT 95
--- NOTE | 2020-02-03 07:53 | HMH.GSHP ---
HPI HPI: Patient presents for colonoscopy. She underwent right hemicolectomy for colon cancer on 06/14/2018. For some time she had some symptoms of postprandial diarrhea and urgency. Initially it was felt that this was likely postoperative but it persisted and she was diagnosed with C. difficile colitis. This was somewhat refractory to medical management but was ultimately treated. Interestingly, she is also intermittently complained of some prominence and swelling in her left upper abdomen. I was unable to palpate any mass or hernia. I did have her undergo CT scan in February 2019 as a work-up for the symptomatology and complaints. Interestingly, this did reveal some thickening of the distal sigmoid colon. It was felt that this could be peristalsis. Patient had elected to forego any colonoscopy due to her symptoms of diarrhea for some time. When I had last seen her in the office I had discussions once again for colonoscopy as she has had ongoing symptoms of postprandial loose stools. I did however arrange for her to see gastroenterology as I felt that this could potentially be functional/medical. She was scheduled to see gastroenterology but she did not keep that appointment. She does state that she feels good but has postprandial fecal urgency and loose stools. This usually occurs about 10 to 60 minutes after eating. It is unclear as to the etiology of her refractory significant postprandial diarrhea. I had debated the possibility of a fistula although this seems less likely. Upper GI with small bowel follow-through may be a consideration if her colonoscopy is unremarkable. [facility] History I have reviewed the patient's past medical history: Yes Medical History: Reports:: Cancer (colon) Denies:: Diabetes Mellitus Type 1, Diabetes Mellitus Type 2, Internal Pacemaker, Lung Disease, MRSA, Seizures *Have you ever received a pneumonia vaccine?: No *Have you received a flu vaccine this season?: No Other Medical History: Denies: Blood Transfusion Reaction Other Surgeries: Yes: Cancer Surgery, Cholecystectomy, Colonoscopy, Colon Resection, EGD, Other. No: Pacemaker Amputation: No Fractures: No - *Social History Smoking Status: Former smoker Alcohol Intake: never Substance Use Type: denies use *Occupational Status:: retired Housing: house Household Members: spouse *Travel in the last 8 weeks: None Family Hx:: Cancer, Heart Attack Review of Systems - Review of Systems Review of systems:: pertinent systems reviewed and negative unless documented below Meds Home Medications Medication Instructions Recorded Confirmed Type No Known Home Medications 02/03/20 02/03/20 History Allergies Allergy/AdvReac Type Severity Reaction Status Date / Time No Known Allergies Allergy Verified 02/03/20 07:29 Exam Vital signs and Labs for Last 24 Hours: Temp Pulse Resp BP Pulse Ox 97.6 F 87 18 173/95 H 95 02/03/20 07:20 02/03/20 07:20 02/03/20 07:20 02/03/20 07:20 02/03/20 07:20 - *Routine HEENT Exam Head: Present: normocephalic Eye: Present: EOMI, PERRL ENT: Present: mucous membranes moist - *Routine Neck Exam Present: supple. Absent: lymphadenopathy - *Routine Respiratory Exam Present: CTA bilaterally - *Routine Cardiovascular Exam Present: RRR - *Routine Abdominal Exam Present: soft, normoactive bowel sounds. Absent: tenderness - *Routine Extremities Exam Absent: cyanosis, clubbing, edema - *Routine Skin Exam Present: warm. Absent: rash - *Routine Neurological Exam Present: alert, oriented X3 Assessment and Plan - Assessment and plan all Dx Assessment and Plan for all problems:: Plan to proceed with colonoscopy with possible random biopsies.
[2020-02-03 08:07] VITALS: O2SAT 99
[2020-02-03 08:50] VITALS: BP 135/77; PULSE 89; RESP 16; TEMP 36.2; O2SAT 95
--- NOTE | 2020-02-03 08:50 | HMH.SCOPE ---
- Procedure: Date: 02/03/20 Procedure Performed:: Total colonoscopy to ileocolonic anastomosis with random biopsies and possible polypectomy Indications:: Patient presents for colonoscopy. She underwent right hemicolectomy for colon cancer on 06/14/2018. For some time she had some symptoms of postprandial diarrhea and urgency. Initially it was felt that this was likely postoperative but it persisted and she was diagnosed with C. difficile colitis. This was somewhat refractory to medical management but was ultimately treated. Interestingly, she is also intermittently complained of some prominence and swelling in her left upper abdomen. I was unable to palpate any mass or hernia. I did have her undergo CT scan in February 2019 as a work-up for the symptomatology and complaints. Interestingly, this did reveal some thickening of the distal sigmoid colon. It was felt that this could be peristalsis. Patient had elected to forego any colonoscopy due to her symptoms of diarrhea for some time. When I had last seen her in the office I had discussions once again for colonoscopy as she has had ongoing symptoms of postprandial loose stools. I did however arrange for her to see gastroenterology as I felt that this could potentially be functional/medical. She was scheduled to see gastroenterology but she did not keep that appointment. She does state that she feels good but has postprandial fecal urgency and loose stools. This usually occurs about 10 to 60 minutes after eating. It is unclear as to the etiology of her refractory significant postprandial diarrhea. I had debated the possibility of a fistula although this seems less likely. Upper GI with small bowel follow-through may be a consideration if her colonoscopy is unremarkable. Performing Provider:: Ha Arroyo MD Referring Provider:: Elpidio Quinteros MD Sedation:: Propofol Procedure:: Patient was taken to the endoscopy procedure room. She was positioned in a lateral decubitus position. Adequate intravenous sedation was achieved with anesthesia titration of propofol. Digital examination was performed which revealed evidence of anal stenosis. With minimal difficulty the colonoscope was inserted via the anus. It was advanced to the ileocolonic anastomosis with some minor difficulty due to some chronic inflammation and angulation and tortuosity of the rectosigmoid colon secondary to chronic diverticulosis. As the colonoscope was withdrawn careful surveillance was carried out. Multiple random biopsies were obtained using cold biopsy forceps to assess for microscopic colitis. In the descending colon there was a possible polyp, although this appeared to be lymphoid aggregate, which was removed with cold biopsy forceps and sent as descending colon polyp. In the rectosigmoid colon there was moderate diverticulosis with evidence of chronic inflammation with some angulation. Within the rectum retroflexion was performed which revealed no evidence of any pathologic internal hemorrhoids. Colonoscope was withdrawn. Findings:: Probable chronic diverticulosis with thickening and scarring at the rectosigmoid Anal stenosis Recommendations:: Plan to follow-up on the biopsy results of the colon to assess for microscopic colitis and treat if necessary. However, her symptoms of postprandial diarrhea may be secondary to the chronic diverticulosis at the rectosigmoid where she may be having breakthrough diarrhea. This could be exacerbated by the anal stenosis. If her biopsies are unremarkable discussion will be held with the patient regarding colorectal surgical referral for consultation. Complications:: None immediate Estimated blood obtained (mL): 2
--- NOTE | 2020-02-03 08:54 | HMH.ANESCL ---
[facility] Anesthesia Checklist - Patient Identification Patient Identification: Arm Band - Structural Data Admitted From: Home Planned Operative Procedure/s: colonoscopy Consent for Planned Operative Procedure(s) Verified: Yes Verified Documents: Surgical Consent, History and Physical - NPO Status Verified Time NPO: 00:00 - Additional verifications Anesthesia Reactions: No Hx Blood Transfusions: No Blood Transfusion Reaction: No - Airway Assessment C-Spine Mobility Assessed: Yes (mp2) TMJ Mobility Assessed: Yes Dentition: Good Dentition - Neurological Assessment Level of Consciousness: Awake, Alert - Anesthesia Plan Anesthesia Risk discussed: Yes Anesthesia Plan: Verified ASA Class: II Anesthesia Type: MAC [facility] History I have reviewed the patient's past medical history: Yes Medical History: Reports:: Cancer (colon) Denies:: Diabetes Mellitus Type 1, Diabetes Mellitus Type 2, Internal Pacemaker, Lung Disease, MRSA, Seizures *Have you ever received a pneumonia vaccine?: No *Have you received a flu vaccine this season?: No Other Medical History: Denies: Blood Transfusion Reaction Anesthesia experience/problems:: nac Other Surgeries: Yes: Cancer Surgery, Cholecystectomy, Colonoscopy, Colon Resection, EGD, Other. No: Pacemaker Amputation: No Fractures: No - *Social History Smoking Status: Former smoker Alcohol Intake: never Substance Use Type: denies use *Occupational Status:: retired Housing: house Household Members: spouse *Travel in the last 8 weeks: None Family Hx:: Cancer, Heart Attack
[2020-02-03 09:00] VITALS: BP 136/84; PULSE 87; RESP 16; TEMP 36.2; O2SAT 98
[2020-02-03 09:10] VITALS: BP 132/73; PULSE 91; RESP 18; TEMP 36.2; O2SAT 97
[2020-02-03 09:20] VITALS: BP 128/89; PULSE 91; RESP 18; TEMP 36.2; O2SAT 98
== END 2020-02-03 09:20 | disposition home or self-care (01) ==
LOC: OUTP 07:08
PROVIDERS: PCP Family Medicine; Visit Provider Surgery
PROC: 0DJD8ZZ Inspection of Lower Intestinal Tract, Via Natural or Artificial Opening Endoscopic (ICD-10-PCS; principal; 2020-02-03 08:30)
DX: R19.7 Diarrhea, unspecified (principal); Z87.891 Personal history of nicotine dependence; D12.4 Benign neoplasm of descending colon; Z85.038 Personal history of other malignant neoplasm of large intestine; Z90.49 Acquired absence of other specified parts of digestive tract; K57.30 Diverticulosis of large intestine without perforation or abscess without bleeding; K62.4 Stenosis of anus and rectum
CPT/HCPCS: 45380; 88305; J2704

== ENCOUNTER → 2020-03-08 08:29 | Outpatient (CLI) | payer MEDICARE, SELFPAY ==
--- NOTE | 2020-03-08 08:29 | FL_ITS ---
PROCEDURE: FL UPPER GI SMALL BOWEL CLINICAL INDICATION: evaulate for fistula Diarrhea COMPARISON: No exams were available for comparison TECHNIQUE: FLUOROSCOPY TIME : 56 seconds FINDINGS: Electrode Cleaner exam shows suture line in the right mid abdominal region. The esophagus, stomach, and duodenum have an unremarkable appearance. No evidence ulcer or mass. Unremarkable appearing small bowel. No obstruction or mucosal abnormalities. The cecum is located in the right mid upper abdominal region. No mucosal thickening. No obvious fistulous. There is diverticulosis within the sigmoid colon IMPRESSION: 1. Unremarkable upper GI and small-bowel follow-through. 2. The cecum is located in the right mid upper abdominal region as opposed to the normal location within the right lower quadrant Dictated by: Pierre Latif MD 03/08/2020 16:46 Electronically signed by Pierre Latif MD in [place] 03/08/2020 16:46
== END ==
PROVIDERS: PCP Family Medicine; Visit Provider Surgery
DX: R19.7 Diarrhea, unspecified (principal); Z85.038 Personal history of other malignant neoplasm of large intestine
CPT/HCPCS: 74246; 74248

== ENCOUNTER → 2020-08-20 07:55 | Outpatient (CLI) | payer MEDICARE, SELFPAY ==
--- NOTE | 2020-08-20 07:58 | MM_ITS ---
PROCEDURE: MM DIG SCREENING MAMM BI W/CAD Digital Breast Tomosynthesis Included CLINICAL INDICATION: SCREENING There is a history of breast cancer in the patient's sister diagnosed before menopause and patient's maternal aunt. COMPARISON: MG DMDXUAVR DIG MAMM-DX UNI ADD VIEWS-RT from 08/25/2014 MG DMSB DIG MAMM-SCREEN [place] W/CAD from 05/11/2017 MG MM DIG SCREENING MAMM BI W/CAD from 06/24/2019 TECHNIQUE: Standard CC and MLO images and 3D Tomosynthesis was obtained. R2 CAD reviewed. FINDINGS: Prominent somewhat heterogenic fibroglandular densities are seen in the central portions of both breasts the findings are fairly symmetrical bilaterally. Multiple scattered benign-appearing micro and macrocalcifications in each breast. There are couple low-lying nodes in each axilla. There is no suspicious lesion and no suspicious microcalcifications. IMPRESSION: Moderate heterogenic breast density with BI-RAD Category: 2 Benign Finding(s) FOLLOW-UP: Recommend yearly follow-up (A letter has been sent to the patient regarding results of the study.) Dictated by: Dr. Franki Rubio MD 08/24/2020 09:19 Dr. Franki Rubio MD in [place] 08/24/2020 09:19
== END ==
PROVIDERS: PCP Family Medicine; Visit Provider Family Medicine
DX: Z12.31 Encounter for screening mammogram for malignant neoplasm of breast (principal)
CPT/HCPCS: 77063; 77067

== ENCOUNTER → 2021-09-12 15:21 | Outpatient (CLI) | payer MEDICARE, SELFPAY | PROVIDERS: Visit Provider Surgery | DX: Z01.812 Encounter for preprocedural laboratory examination (principal); Z11.52 Encounter for screening for COVID-19; Z12.11 Encounter for screening for malignant neoplasm of colon | CPT/HCPCS: C9803; U0003; U0005 ==

== ENCOUNTER 2021-09-14 07:05 | Day surgery (SDC) | payer MEDICARE, SELFPAY ==
[2021-09-07 14:46] VITALS: BMI 29.9
[2021-09-14 07:34] VITALS: BP 176/89; PULSE 88; RESP 18; TEMP 36.6; O2SAT 98
--- NOTE | 2021-09-14 07:47 | HMH.GSHP ---
HPI HPI: Patient presents for followup colonoscopy. She underwent right hemicolectomy for colon cancer on 06/14/2018. For some time afterwards she had some symptoms of postprandial diarrhea and urgency. Initially it was felt that this was likely postoperative but it persisted and she was diagnosed with C. difficile colitis. This was somewhat refractory to medical management but was ultimately treated. I did have her undergo CT scan in February 2019 as a work-up for the symptomatology and complaints. Interestingly, this did reveal some thickening of the distal sigmoid colon. She has ongoing postprandial fecal urgency and loose stools. This usually occurs about 10 to 60 minutes after eating. I had previously had her undergo upper GI and small bowel follow-through to evaluate for possible fistula and none was noted. She had a colonoscopy on 02/03/2020 which revealed some appreciable anal stenosis and also some chronic thickening at the rectosigmoid region likely from prior diverticulitis. There were no polyps or masses. Multiple biopsies were obtained. These were unremarkable for microscopic colitis. It was felt that her symptoms of multiple postprandial loose stools are likely secondary to chronic thickening from probable diverticulitis at the rectosigmoid region and exacerbated by some anal stenosis. She wished to refrain from any surgical intervention and referral to colorectal surgery. I did previously recommend fiber supplementation. She does have these ongoing symptoms. She states that her sister had recently of abdominal cancer which had spread to her colon. She is unclear of the exact nature of the cancer. She states that she has some occasionally mildly tender knots in her lower abdomen. Given the family history and personal history plan was for follow-up colonoscopy. After this I may have her return for possible blood work including CEA level and CT scan. [facility] History I have reviewed the patient's past medical history: Yes Medical History: Reports:: Cancer Denies:: Diabetes Mellitus Type 1, Diabetes Mellitus Type 2, Internal Pacemaker, Lung Disease, MRSA, Seizures *Have you ever received a pneumonia vaccine?: No *Have you received a flu vaccine this season?: No Other Medical History: Denies: Blood Transfusion Reaction Other Surgeries: Yes: Cancer Surgery, Cholecystectomy, Colonoscopy, Colon Resection, EGD, Other. No: Pacemaker Amputation: No Fractures: No - *Social History Last grade of school completed: High school graduate Smoking Status: Former smoker Alcohol Intake: never Substance Use Type: denies use *Occupational Status:: retired Housing: house Household Members: spouse *Travel in the last 8 weeks: None Family Hx:: Cancer, Heart Attack Review of Systems - Review of Systems Review of systems:: pertinent systems reviewed and negative unless documented below Meds Home Medications Medication Instructions Recorded Confirmed Type No Known Home Medications 09/14/21 09/14/21 History Allergies Allergy/AdvReac Type Severity Reaction Status Date / Time No Known Allergies Allergy Verified 07/15/21 08:53 Exam Vital signs and Labs for Last 24 Hours: Temp Pulse Resp BP Pulse Ox 97.9 F 88 18 176/89 H 98 09/14/21 07:34 09/14/21 07:34 09/14/21 07:34 09/14/21 07:34 09/14/21 07:34 - Constitutional no acute distress - *Routine HEENT Exam Head: Present: normocephalic Eye: Present: EOMI, PERRL ENT: Present: mucous membranes moist - *Routine Neck Exam Present: supple. Absent: lymphadenopathy - *Routine Respiratory Exam Present: CTA bilaterally - *Routine Cardiovascular Exam Present: RRR - *Routine Abdominal Exam Present: soft, normoactive bowel sounds. Absent: tenderness - *Routine Rectal Exam Rectal:: deferred - *Routine Genitalia Exam Genitalia:: deferred - *Routine Extremities Exam Absent: cyanosis, clubbing, edema - *Routine Skin Exam Present: warm. Abs
[2021-09-14 07:52] VITALS: O2SAT 98
--- NOTE | 2021-09-14 08:32 | HMH.SCOPE ---
- Procedure: Date: 09/14/21 Patient Date of :: 1945 Procedure Performed:: Colonoscopy Indications:: Patient presents for followup colonoscopy. She underwent right hemicolectomy for colon cancer on 06/14/2018. For some time afterwards she had some symptoms of postprandial diarrhea and urgency. Initially it was felt that this was likely postoperative but it persisted and she was diagnosed with C. difficile colitis. This was somewhat refractory to medical management but was ultimately treated. I did have her undergo CT scan in February 2019 as a work-up for the symptomatology and complaints. Interestingly, this did reveal some thickening of the distal sigmoid colon. She has ongoing postprandial fecal urgency and loose stools. This usually occurs about 10 to 60 minutes after eating. I had previously had her undergo upper GI and small bowel follow-through to evaluate for possible fistula and none was noted. She had a colonoscopy on 02/03/2020 which revealed some appreciable anal stenosis and also some chronic thickening at the rectosigmoid region likely from prior diverticulitis. There were no polyps or masses. Multiple biopsies were obtained. These were unremarkable for microscopic colitis. It was felt that her symptoms of multiple postprandial loose stools are likely secondary to chronic thickening from probable diverticulitis at the rectosigmoid region and exacerbated by some anal stenosis. She wished to refrain from any surgical intervention and referral to colorectal surgery. I did previously recommend fiber supplementation. She does have these ongoing symptoms. She states that her sister had recently of abdominal cancer which had spread to her colon. She is unclear of the exact nature of the cancer. She states that she has some occasionally mildly tender knots in her lower abdomen. Given the family history and personal history plan was for follow-up colonoscopy. After this I may have her return for possible blood work including CEA level and CT scan. Performing Provider:: Ha Arroyo MD Referring Provider:: Elpidio Quinteros MD Sedation:: MAC sedation Procedure:: Patient was taken to endoscopy procedure room. She was positioned in lateral decubitus position. Adequate intravenous sedation was achieved with anesthesia titration of propofol. Digital examination was performed. She had significant anal stenosis. Variable stiffness Olympus colonoscope was inserted via the anus. It was advanced to. Advancement beyond the rectosigmoid was appreciably difficult due to chronic inflammation and significant angulation and tortuosity at the rectosigmoid region. Ultimately the colonoscope was advanced beyond this. It was able to be ultimately advanced to the ileocolic anastomosis. Colonic preparation was good and visualization was good. Colonoscope was slowly withdrawn through the colon with careful surveillance. She had some distal sigmoid diverticulosis. There were noted to be a couple of areas of denuded mucosa secondary to advancement of the colonoscope under the difficulty from the angulation and tortuosity at this location. This did not appear to be obvious full-thickness injury. She did have some significant sigmoid diverticulosis. Retroflexion was performed within the rectum which revealed no evidence of any pathologic internal hemorrhoids. Colonoscope was withdrawn. Findings:: Significant anal stenosis Chronic diverticulosis Significant scarring with angulation and tortuosity of the rectosigmoid area Recommendations:: No polyps were noted. Patient has a couple of anatomic issues with her colon with significant angulation and tortuosity with chronic scarring and diverticulosis of the rectosigmoid. She also has quite significant anal stenosis. Once again I will discuss with her possible colorectal surgical consultation for this as I have felt that this may benefit her lifestyle limiting loose stools. May plan for vito
[2021-09-14 08:50] VITALS: BP 122/72; PULSE 89; RESP 18; TEMP 36.7; O2SAT 95
[2021-09-14 09:11] VITALS: BP 139/76; PULSE 81; RESP 18; TEMP 36.7; O2SAT 95
--- NOTE | 2021-09-14 11:59 | P.PN_ITS ---
[facility] Anesthesia Checklist - Patient Identification Patient Identification: Arm Band, Verbal (Name & ) - Structural Data Admitted From: Home Planned Operative Procedure/s: Colonoscopy Consent for Planned Operative Procedure(s) Verified: Yes Verified Documents: Surgical Consent - NPO Status Verified Time NPO: 00:00 - Additional verifications Anesthesia Reactions: No Hx Blood Transfusions: No Blood Transfusion Reaction: No - Cardiovascular Assessment Heart Sounds: S1 & S2 - Airway Assessment C-Spine Mobility Assessed: Yes TMJ Mobility Assessed: Yes Dentition: Good Dentition - Neurological Assessment Level of Consciousness: Awake, Alert, Appropriate - Anesthesia Plan ASA Class: II Anesthesia Type: General [facility] History Medical History: Reports:: Cancer Denies:: Diabetes Mellitus Type 1, Diabetes Mellitus Type 2, Internal Pacemaker, Lung Disease, MRSA, Seizures *Have you ever received a pneumonia vaccine?: No *Have you received a flu vaccine this season?: No Other Medical History: Denies: Blood Transfusion Reaction Anesthesia experience/problems:: none Other Surgeries: Yes: Cancer Surgery, Cholecystectomy, Colonoscopy, Colon Resection, EGD, Other. No: Pacemaker Amputation: No Fractures: No - *Social History Last grade of school completed: High school graduate Smoking Status: Former smoker Alcohol Intake: never Substance Use Type: denies use *Occupational Status:: retired Housing: house Household Members: spouse *Travel in the last 8 weeks: None Family Hx:: Cancer, Heart Attack
== END 2021-09-14 09:45 | disposition home or self-care (01) ==
LOC: OUTP 07:07
PROVIDERS: PCP Family Medicine; Visit Provider Surgery
PROC: 0DJD8ZZ Inspection of Lower Intestinal Tract, Via Natural or Artificial Opening Endoscopic (ICD-10-PCS; principal; 2021-09-14 08:30)
DX: Z12.11 Encounter for screening for malignant neoplasm of colon (principal); K56.2 Volvulus; Z85.038 Personal history of other malignant neoplasm of large intestine; Z90.49 Acquired absence of other specified parts of digestive tract; K62.4 Stenosis of anus and rectum; K57.32 Diverticulitis of large intestine without perforation or abscess without bleeding; Z87.19 Personal history of other diseases of the digestive system; Z80.0 Family history of malignant neoplasm of digestive organs
CPT/HCPCS: G0121; J2704

== ENCOUNTER → 2021-09-15 07:55 | Outpatient (CLI) | payer MEDICARE, SELFPAY ==
--- NOTE | 2021-09-15 07:57 | MM_ITS ---
PROCEDURE INFORMATION: Exam: MG Bilateral Screening 3D Mammography Exam date and time: 09/15/2021 7:57 AM Age: 76 years old Clinical indication: Encounter for screening mammogram for malignant neoplasm of breast TECHNIQUE: Imaging protocol: Bilateral screening tomosynthesis and 2D mammography including computer-aided detection (CAD) when performed. COMPARISON: 1. MG MM DIG SCREENING MAMM BI W/CAD 08/20/2020 8:02 AM 2. MG MM DIG SCREENING MAMM BI W/CAD 06/24/2019 10:22 AM FINDINGS: MAMMOGRAPHY: Breast composition: The breast tissue is heterogeneously dense, which may obscure small masses. Mass: None. Architectural distortion: None. Calcifications: No suspicious calcifications. Asymmetric density: None. Skin thickening: None. Axillary adenopathy: None. IMPRESSION: No mammographic evidence of malignancy. Annual screening is recommended unless otherwise clinically indicated. ASSESSMENT: BI-RADS Category 1: Negative
== END ==
PROVIDERS: PCP Family Medicine; Visit Provider Family Medicine
DX: Z12.31 Encounter for screening mammogram for malignant neoplasm of breast (principal)
CPT/HCPCS: 77063; 77067

== ENCOUNTER → 2022-07-17 11:22 | Outpatient (CLI) | payer MEDICARE, SELFPAY ==
--- NOTE | 2022-07-17 11:30 | XR_ITS ---
FINAL REPORT CLINICAL HISTORY: HIP PAIN, no recent injury, recent shingles outbreak in this area FINDINGS: LEFT HIP Two views of the left hip including an AP pelvis demonstrate no acute fracture or dislocation. There are mild degenerative changes in the lower lumbar spine and both hips. The visualized bony structures are well aligned. There are chronic calcifications adjacent to the left ischial tuberosity. IMPRESSION: Chronic and degenerative degenerative changes with no acute bony abnormality. Reviewed, Interpreted and Dictated by Ha Riggs III, MD Transcribed by Natalie Coronel Authenticated and [facility]
== END ==
PROVIDERS: PCP Family Medicine; Visit Provider Nurse Practitioner Family
DX: M25.552 Pain in left hip (principal)
CPT/HCPCS: 73502

== ENCOUNTER → 2022-09-27 07:56 | Outpatient (CLI) | payer MEDICARE, SELFPAY ==
--- NOTE | 2022-09-27 08:04 | MM_ITS ---
PROCEDURE INFORMATION: Exam: MG Bilateral Screening 3D Mammography Exam date and time: 09/27/2022 7:54 AM Age: 77 years old Clinical indication: Screening examination TECHNIQUE: Imaging protocol: Bilateral Screening tomosynthesis and 2D mammography including computer-aided detection (CAD) when performed. COMPARISON: 1. MG MM DIG SCREENING MAMM BI W/CAD 09/15/2021 7:59 AM 2. MG MM DIG SCREENING MAMM BI W/CAD 08/20/2020 8:02 AM 3. MG MM DIG SCREENING MAMM BI W/CAD 06/24/2019 10:22 AM 4. MG DMSB DIG MAMM-SCREEN [place] W/CAD 05/11/2017 2:10 PM FINDINGS: MAMMOGRAPHY: Breast composition: The breast is heterogeneously dense, which may obscure small masses. Mass: None. Architectural distortion: No new or suspicious architectural distortion. Calcifications: Stable benign-appearing calcifications are present. No new or suspicious cluster of microcalcifications have developed. Asymmetric density: No new or suspicious asymmetric density is present Skin thickening: None. Axillary adenopathy: None. IMPRESSION: No mammographic evidence of malignancy. Recommend annual screening mammography unless otherwise clinically indicated. ASSESSMENT: BI-RADS category 2: Benign
== END ==
PROVIDERS: PCP Family Medicine; Visit Provider Family Medicine
DX: Z12.31 Encounter for screening mammogram for malignant neoplasm of breast (principal)
CPT/HCPCS: 77063; 77067

== ENCOUNTER → 2023-07-19 15:13 | Outpatient (CLI) | payer MEDICARE, SELFPAY ==
--- NOTE | 2023-07-19 15:18 | CT_ITS ---
FINAL REPORT CLINICAL HISTORY: SCREENING, previous smoker, quit 8 years ago, prior to quiting patient smoked 1 ppd x 40-50 years COMPARISON: None FINDINGS: CT CHEST LOW DOSE SCREENING HISTORY: Screening exam for lung cancer. 78-year-old female, former smoker who quit 8 years ago, 50 pack year smoking history DOSE: CTDIvol: 2.9 mGy, DLP: 109.16 mGy*cm COMPARISON: None . TECHNIQUE: Axial CT without IV contrast administration using low dose protocol FINDINGS: Severe coronary artery calcifications are present. There are multiple bilateral less than 5 mm in size pulmonary nodules present. There is a posterior right upper lobe nodule, 4 mm in size, seen in image #37. There is a second nodule in the anterior right lower lobe, 4 mm, seen in image #54. No acute lung disease is present . No pulmonary lesions are seen suspicious for neoplasm. No pleural or pericardial effusion is seen . No adenopathy or mass lesion is present . IMPRESSION: Multiple small less than 5 mm in size nodules seen bilaterally. LUNG RADS CATEGORY 2 RECOMMENDATION: 12 month LDCT follow up Reviewed, Interpreted and Dictated by Ha Riggs III, MD Transcribed by Citlaly Paulino Authenticated and [facility]
== END ==
PROVIDERS: PCP Family Medicine; Visit Provider Nurse Practitioner Family
DX: Z87.891 Personal history of nicotine dependence (principal)
CPT/HCPCS: 71271

== ENCOUNTER 2023-10-01 09:33 | Outpatient (CLI) | payer MEDICARE, SELFPAY ==
--- NOTE | 2023-10-01 09:37 | MM_ITS ---
PROCEDURE INFORMATION: Exam: MG Bilateral Screening 3D Mammography Exam date and time: 10/01/2023 9:31 AM Age: 78 years old Clinical indication: Screening examination. Her sister had breast cancer at age 46. TECHNIQUE: Imaging protocol: Bilateral Screening tomosynthesis and 2D mammography including computer-aided detection (CAD) when performed. COMPARISON: 1. MG MM DIG SCREENING MAMM BI W/CAD 09/27/2022 7:54 AM 2. MG MM DIG SCREENING MAMM BI W/CAD 09/15/2021 7:59 AM 3. MG MM DIG SCREENING MAMM BI W/CAD 08/20/2020 8:02 AM 4. MG MM DIG SCREENING MAMM BI W/CAD 06/24/2019 10:22 AM FINDINGS: MAMMOGRAPHY: Breast composition: The breasts are heterogeneously dense, which may obscure small masses. Mass: Oval 0.7 cm mass in the left upper outer quadrant anterior to middle 3rd, approximately 3-4 cm from the nipple, CC frame 27 and MLO frame 25. Architectural distortion: None. Calcifications: No suspicious calcifications. Asymmetric density: None. Skin thickening: None. Axillary adenopathy: None. IMPRESSION: Patient will be recalled for left sonography for further evaluation of left breast mass. ASSESSMENT: BI-RADS Category 0: Incomplete- Need Additional Imaging Evaluation and/or Prior Mammograms for Comparison
== END 2023-10-01 23:59 ==
LOC: RAD 09:33
PROVIDERS: PCP Family Medicine; Visit Provider Nurse Practitioner Family
DX: Z12.31 Encounter for screening mammogram for malignant neoplasm of breast (principal)
CPT/HCPCS: 77063; 77067

== ENCOUNTER 2023-10-16 14:44 | Outpatient (CLI) | payer MEDICARE, SELFPAY ==
--- NOTE | 2023-10-16 14:49 | US_ITS ---
PROCEDURE INFORMATION: Exam: US Left Breast, Complete Exam date and time: 10/16/2023 3:41 PM Age: 78 years old Clinical indication: Patient recalled for further evaluation of a left breast mass TECHNIQUE: Imaging protocol: Complete ultrasound of all four quadrants of the left breast and the retroareolar regions, including ultrasound of the axilla when performed. COMPARISON: MG MM DIG SCREENING MAMM BI W/CAD 10/01/2023 9:31 AM FINDINGS: Breast: Sonographic images of the left 2 o'clock axis 3 cm from the nipple demonstrates a 0.7 cm cyst most closely corresponding to the mass on mammography. No other suspicious solid or cystic masses are noted in the remainder of the left breast. Incidental imaging of a benign calcification in the left lower inner quadrant. Incidental 0.2 cm cyst in the left 10 o'clock retroareolar region. No axillary adenopathy. IMPRESSION: Mass on screening mammography corresponds to underlying cystic change sonographically. There is no mammographic evidence of malignancy.Annual bilateral mammographic screening is recommended unless otherwise clinically indicated. ASSESSMENT: BI-RADS Category 2: Benign
== END 2023-10-16 23:59 ==
LOC: RAD 14:45
PROVIDERS: PCP Family Medicine; Visit Provider Nurse Practitioner Family
DX: R92.8 Other abnormal and inconclusive findings on diagnostic imaging of breast; N63.20 Unspecified lump in the left breast, unspecified quadrant
CPT/HCPCS: 76641

== ENCOUNTER 2024-04-23 07:44 | Outpatient (CLI) | payer MEDICARE, SELFPAY ==
--- NOTE | 2024-04-23 07:49 | CA_ITS ---
FINAL REPORT TECHNIQUE: Grayscale, color Doppler and duplex Doppler ultrasound of the kidneys, aorta and renal arteries was performed. Multiple velocities were measured. CLINICAL HISTORY: HTN, H/o kidney stone with lithotripsy COMPARISON: None FINDINGS: Aorta velocity: 95 cm/sec Right kidney: 9.5 cm. No evidence of hydronephrosis or mass. Right intrarenal RI: 156 Right renal artery velocity: 0.73-0.78 cm/sec. Right RAR (Renal artery-Aortic Ratio): 1.63 Left Kidney: 10.7 cm. No evidence of hydronephrosis or mass. Left intrarenal RI: 0.69-0.75 Left renal artery velocity: 319 cm/sec. Left RAR (Renal Artery-Aortic Ratio): 3.34 IMPRESSION: No evidence of significant renal artery stenosis on the right. Less than 60% renal artery stenosis on the left. CTA or catheter directed angiography may be considered for better evaluation of the left renal artery. Reviewed, Interpreted and Dictated by Ruy Estes MD Transcribed by Cora Goldman Authenticated and [facility]
--- NOTE | 2024-04-23 07:49 | CA_ITS ---
FINAL REPORT TECHNIQUE: Color Doppler, duplex Doppler and alfaro scale sonography of the bilateral neck arterial vasculature was performed. Velocities were measured in the carotid arteries. Stenosis evaluation based on the validated velocity criteria. CLINICAL HISTORY: HTN, ex smoker quit 10-15 years FINDINGS: The peak systolic velocity of the right common carotid artery is 101 cm/s. The peak systolic velocity of the right internal carotid artery is 91 cm/s and end diastolic velocity 24 cm/s. The ICA/CCA ratio is 1.1. A [id number] amount of plaque is present. The right external carotid artery is patent. The right vertebral artery is patent with antegrade flow. The peak systolic velocity of the left common carotid artery is 117 cm/s. The peak systolic velocity of the left internal carotid artery is 129 cm/s and end diastolic velocity 28 cm/s. The ICA/CCA ratio is 1.1. A [id number]-sg-[id number] amount of plaque is present. The left external carotid artery is patent.The left vertebral artery is patent with antegrade flow. IMPRESSION: Less than 50% bilateral carotid stenoses. Bilateral patent vertebral arteries with antegrade flow. If indicated, CTA or MRA could further evaluate. Reviewed, Interpreted and Dictated by Ruy Estes MD Transcribed by Lisa Garcia Authenticated and [facility]
--- NOTE | 2024-04-23 08:40 | US_ITS ---
FINAL REPORT CLINICAL HISTORY: ESSENTIAL HTN FINDINGS: The right kidney measures 9.9 cm in length. It is normal in echogenicity. There is no hydronephrosis. The left kidney measures 9.9 cm in length. It is normal in echogenicity. There is no hydronephrosis. The spleen is unremarkable. IMPRESSION: Normal renal ultrasound. Reviewed, Interpreted and Dictated by Ruy Estes MD Transcribed by Lisa Garcia Authenticated and [facility]
== END 2024-04-23 23:59 | disposition home or self-care (01) ==
LOC: RT 07:46
PROVIDERS: PCP Family Medicine; Visit Provider Nurse Practitioner Family
DX: G45.8 Other transient cerebral ischemic attacks and related syndromes (principal); I10 Essential (primary) hypertension
CPT/HCPCS: 76770; 93880; 93976

== ENCOUNTER 2024-05-29 20:47 | Inpatient (IN) | payer MEDICARE, SELFPAY ==
[2024-05-29] VITALS (12 sets, daily range): BP systolic 117–189; BP diastolic 78–126; PULSE 51–98; RESP 16–20; TEMP 36.6–36.7; O2SAT 90–98; BMI 29.9
--- NOTE | 2024-05-29 20:46 | ECG_ITS ---
APPROVED REPORT Exam: Resting ECG HR:51 bpm ECG Measurements Heart Rate 51 AXES QRSd 92 QRS 91 QT 413 T 104 QTc 389 Conclusion SUPRAVENTRICULAR BRADYCARDIA BORDERLINE RIGHT AXIS DEVIATION [QRS AXIS > 90] ST ELEVATION, CONSIDER INFERIOR INJURY [MARKED ST ELEVATION W/O NORMALLY INFLECTED T-WAVE IN II/aVF] ACUTE TX UNCONFIRMED REPORT Electronically signed by : SAJAN MARY, 05/30/2024 00:32:05
--- NOTE | 2024-05-29 20:48 | HMH.EDGENADL ---
Discharge Plan Disposition Patient Disposition: Admitted Condition: Critical Chief Complaint: Chest Pain Clinical Impressions Clinical Impression: Acute CO, inferior wall, Chest pain Discharge ED Provider: Brandon Fernández Adult HPI General Chief complaint: Chest Pain Stated complaint: chest pressure Time Seen by Provider: 05/29/24 20:48 History of Present Illness HPI narrative: 79-year-old female with past medical history significant for hypothyroidism and HTN presents today for evaluation concerning chest pain centrally which she states has been ongoing for the past 1 hour. She has never had the symptoms before. Her pain is associated with a degree of shortness of breath. She denies any nausea, vomiting with fevers, chills, abdominal pain or any other associated symptoms at this time. EKG on initial assessment shows inferior STEMI. [employer] Reporter activated Related Data Previous Rx's ?Medication ?Instructions ?Recorded sulfamethoxazole 800 1 tab PO Q12H 14 days #28 tabs 07/03/22 mg-trimethoprim 160 mg tablet (Bactrim DS) Allergies Allergy/AdvReac Type Severity Reaction Status Date / Time No Known Allergies Allergy Verified 07/03/22 11:15 [facility] Disclaimer: The information contained in this section may have been updated after the patient was seen, as this information can be updated by other users. Medical History Bullous impetigo Colon cancer History of colon cancer History of kidney stones Surgical History History of cholecystectomy Social History Smoking Status: Unknown if ever smoked second hand exposure: No alcohol intake: never substance use type: denies use current occupational status: retired Travel in the last 8 weeks: None household members: spouse housing: house current occupational exposures/hazards: No caffeine: Yes ROS Obtained: Yes All systems reviewed & no additional complaints except as documented Physical Exam General General appearance: alert, in no apparent distress and in distress Head Head exam: atraumatic and normocephalic Eye Eye exam: Present normal appearance, PERRL and EOMI ENT ENT exam: Present normal oropharynx and mucous membranes moist Neck Neck exam: Present full ROM; Absent meningismus Respiratory Respiratory exam: Absent respiratory distress, wheezes, stridor or accessory muscle use Cardiovascular Cardiovascular exam: Present normal rhythm Abdominal Exam Abdominal exam: Present soft; Absent distention, tenderness, guarding, rebound or rigidity Neurological Exam Neurological exam: Present alert, oriented X3 and CN II-XII intact; Absent motor sensory deficit Psychiatric Psychiatric exam: Present normal affect and normal mood Skin Skin exam: Present warm and dry Medical Decision Making Medical Records Medical records reviewed: Yes I reviewed the patient's medical records. Gerardo Inquiry Pt receiving controlled substance: No Gerardo was queried for this patient: No Vital Signs: 05/29/24 20:47 05/29/24 21:05 05/29/24 21:25 Temperature 98 F Temperature Source Oral Pulse Rate 51 L 114 H Pulse Rate [Left] 55 L Respiratory Rate 16 20 Blood Pressure 117/80 Blood Pressure [Right Arm] 147/126 H Blood Pressure Mean [Right Arm] 133 Blood Pressure Source Automatic Cuff Blood Pressure Source [Right Arm] Automatic Cuff Blood Pressure Position [Right Arm] Sitting 02 Sat by Pulse Oximetry 98 98 Oxygen Delivery Method Room Air Nasal Cannula Oxygen Flow Rate (LPM) 2 Lab Data Lab Results 05/29/24 20:53: WBC 11.9 H, RBC 5.55 H, Hgb 16.9 H, Hct 52.7 H, MCV 94.9, MCH 30.4, MCHC 32.0, RDW 13.9, Plt Count 228, MPV 8.5, Neut % (Auto) 61.7, Lymph % (Auto) 27.9, [place] % (Auto) 6.1, Eos % (Auto) 2.0, Baso % (Auto) 2.4 H, Neut # (Auto) 7.3, Lymph # (Auto) 3.3, [place] # (Auto) 0.7, Eos # (Auto) 0.2, Baso # (Auto) 0.3 H, Sodium 139, Potassium 4.3, Chloride 105, Carbon Dioxide 25, Anion Gap 13.3, BUN 17, Creatinine 1.10 H, Estimated Creat Clear 53, Estimated GFR 48 L, Est GFR ( Amer) 58 L, Glucose 123 H, Calcium 9.2, Total Bilirubin 0.7, AST 33, ALT 25, Alkaline Phosphatase 79, Troponin I < 0.01, Total Protein 7.6, Albumin 4.3, Globulin 3.3 H, Albumin/Globulin Ratio 1.3 05/29/24 20:53 05/29/24 20:53 Orders (Tests/Meds): ED MEDICATIONS Generic Name Dose Route Start Last Admin Trade Name Freq PRN Reason Stop Dose Admin Diphenhydramine HCl 50 mg 05/29/24 21:10 05/29/24 21:41 Diphenhydramine 50mg/Ml Vial IV 05/29/24 21:11 50 mg ONCE ONE Administration Fentanyl Citrate 50 mcg 05/29/24 21:10 05/29/24 21:46 Fentanyl 100mcg/2ml Vial IV 05/30/24 09:10 50 mcg Q3MINP PRN Administration Moderate to Severe Pain (4-10) Fentanyl Citrate 25 mcg 05/29/24 21:10 Fentanyl 250mcg/5ml Vial IV 05/30/24 09:10 Q3MINP PRN Moderate to Severe Pain (4-10) Fentanyl Citrate 50 mcg 05/29/24 21:10 Fentanyl 250mcg/5ml Vial IV 05/30/24 09:10 Q3MINP PRN Moderate to Severe Pain (4-10) Fentanyl Citrate 25 mcg 05/29/24 21:10 Fentanyl 100mcg/2ml Vial IV 05/30/24 09:10 Q3MINP PRN Moderate to Severe Pain (4-10) Flumazenil 0.2 mg 05/29/24 21:10 Flumazenil 0.1mg/Ml 5ml Vial IV 05/30/24 09:10 NEEDED PRN Sedation Heparin Sodium (Porcine) 10,000 unit 05/29/24 21:10 05/29/24 21:49 Heparin 1,000 Units/Ml 10ml Vial ([employer] Reporter) IV 05/30/24 01:10 2,000 unit NEEDED PRN Administration Emergency Box Collection Team Lead Heparin Sodium/Sodium Chloride 3,000 unit 05/29/24 21:10 05/29/24 21:41 Heparin 1,000 Units/500ml Ns ([employer] Reporter) IV 05/29/24 21:11 3,000 unit ONCE ONE Administration Hydralazine HCl 20 mg 05/29/24 21:10 Hydralazine 20mg/Ml Vial IV 05/30/24 01:10 ONCE PRN sbp>160 Adenosine 180 mg/ Sodium 90 mls @ 440.894 mls/hr 05/29/24 21:10 Chloride IV 05/30/24 01:10 ONCE PRN fractional flow reserve 180 MCG/KG/MIN Adenosine 90 mg/ Sodium 90 mls @ 881.788 mls/hr 05/29/24 21:10 Chloride IV 05/30/24 01:10 ONCE PRN fractional flow reserve 180 MCG/KG/MIN Sodium Chloride 1,000 mls @ 25 mls/hr 05/29/24 21:15 05/29/24 21:41 Sod Chloride 0.9% 500ml Bag IV 05/30/24 21:10 25 mls/hr .Q25H NATHAN Administration Labetalol HCl 20 mg 05/29/24 21:10 Labetalol 20mg/4ml Syringe IV 05/30/24 01:10 ONCE PRN sbp>160 Lidocaine HCl 20 ml 05/29/24 21:10 05/29/24 21:40 Lidocaine 1% 10ml Mdv IJ 05/29/24 21:11 10 ml ONCE ONE Administration Lidocaine HCl 20 ml 05/29/24 21:10 Lidocaine 1% 5ml Pf Vial IJ 05/29/24 21:11 ONCE ONE Midazolam HCl 1 mg 05/29/24 21:10 Midazolam 2mg/2ml Vial IV 05/30/24 09:10 Q3MINP PRN Sedation Midazolam HCl 1 mg 05/29/24 21:10 05/29/24 21:46 Midazolam Hcl 1mg/1ml 5ml Vial IV 05/30/24 09:10 1 mg Q3MINP PRN Administration Sedation Morphine Sulfate 2 mg 05/29/24 21:14 05/29/24 21:15 Morphine 2mg/Ml Syringe IV 05/29/24 21:15 2 mg ONCE ONE Administration Naloxone HCl 0.4 mg 05/29/24 21:10 Naloxone 0.4mg/Ml Vial IV 05/30/24 09:10 Q5MINP PRN Decreased Respirations Nitroglycerin 800 mcg 05/29/24 21:10 05/29/24 21:41 Nitroglycerin 800mcg/8ml Syr ([employer]el[employer] Reporter) IA 05/30/24 01:10 800 mcg NEEDED PRN Administration Emergency Box Collection Team Lead Protamine Sulfate 50 mg 05/29/24 21:10 Protamine Sulfate 50mg/5ml Vial ([employer]el[employer] Reporter) IV 05/30/24 01:10 ONCE PRN act>200 Verapamil HCl 2.5 mg 05/29/24 21:10 05/29/24 21:40 Verapamil 2.5mg/Ml 2ml Vial IV 05/29/24 21:11 2.5 mg ONCE ONE Administration Discontinued Medications Generic Name Dose Route Start Last Admin Trade Name Marti PRN Reason Stop Dose Admin Heparin Sodium (Porcine) 100 unit 05/29/24 20:49 05/29/24 21:07 Heparin Sodium 5,000 Unit/Ml Vial IV 05/29/24 20:50 Not Given ONCE ONE Heparin Sodium (Porcine) 8,200 unit 05/29/24 20:56 05/29/24 21:05 Heparin Sodium 5,000 Unit/Ml Vial 100 unit/kg (8200 unit) 05/29/24 20:57 8,200 unit IV Administration ONCE ONE Morphine Sulfate 2 mg 05/29/24 20:52 05/29/24 21:00 Morphine 2mg/Ml Syringe IV 05/29/24 20:53 2 mg ONCE ONE Administration Ondansetron HCl 4 mg 05/29/24 20:52 05/29/24 21:01 Ondansetron 4mg/2ml Vial IV 05/29/24 20:53 4 mg ONCE ONE Administration Ticagrelor 180 mg 05/29/24 20:49 05/29/24 21:03 Ticagrelor 90mg Tablet PO 05/29/24 20:50 180 mg ONCE ONE Administration ORDERS Category Date Time Status CXR --portable [XR chest portable] Stat Exams 05/29/24 20:52 Completed Basic Metabolic Panel Stat Lab 05/29/24 21:10 Ordered CBC w/Auto Diff [Complete Blood Count Auto Diff] Stat Lab 05/29/24 20:53 Completed CMP [Comprehensive Metabolic Panel] Stat Lab 05/29/24 20:53 Completed Trop I [Troponin I] Stat Lab 05/29/24 20:53 Completed Troponin I Q3H Lab 05/29/24 23:49 Ordered Troponin I Q3H Lab 05/30/24 02:49 Ordered Medical Decision Narrative: 79-year-old female with past medical history significant for hypothyroidism and HTN presents today for evaluation concerning chest pain centrally which she states has been ongoing for the past 1 hour. She has never had the symptoms before. Her pain is associated with a degree of shortness of breath. She denies any nausea, vomiting with fevers, chills, abdominal pain or any other associated symptoms at this time. On assessment she was in distress secondary to her pain. Chest was clear station bilateral. Abdomen was soft and nondistended nontender palpation. No peripheral edema noted. EKG personally inter by me. Sinus rhythm with a rate of 51 bpm. Patient has an inferior CO with ST elevations in 2 3 and aVF with reciprocal changes in the anterior lateral leads. Freel[employer] Reporter has been activated. I have spoken with Dr. Mcmillan in cardiology. Dr. Mcmillan has recommended a 100 unit/kg dose of heparin as well as 180 of p.o. Brilinta. Labs today show a WBC of 11.9. Hemoconcentration with a hemoglobin of 16.9, hematocrit of 52.7. Creatinine of 1.1. Initial troponin less than 0.01. Patient was taken to the Freel[employer] [address] Reporter. I did consult with hospital medicine and discussed management and they have also agreed to admit patient post cardiac catheterization Critical Care Critical Care Time Critical Care Time: No
--- NOTE | 2024-05-29 20:52 | XR_ITS ---
PROCEDURE INFORMATION: Exam: XR Chest Exam date and time: 05/29/2024 8:50 PM Age: 79 years old Clinical indication: Pain; Chest pressure; Additional info: Cp TECHNIQUE: Imaging protocol: Radiologic exam of the chest. Views: 1 view. COMPARISON: CT LUNG SCREENING 07/19/2023 3:24 PM FINDINGS: Lungs: Unremarkable. No consolidation. Pleural spaces: Unremarkable. No pleural effusion. No pneumothorax. Heart/Mediastinum: Unremarkable. No cardiomegaly. Bones/joints: Unremarkable. IMPRESSION: No acute findings.
[2024-05-29] MEDS: MORPHINE 2MG/ML SYRINGE 2 MG IV ×2 (21:00→21:15)
--- NOTE | 2024-05-29 21:00 | PC.NURSE ---
Pt is A/o x 4 spoke with her and son Harley, she states she wants to be a FULL CODE in the event her heart were to stop beating.
[2024-05-29] MEDS: ONDANSETRON 4MG/2ML VIAL 4 MG IV (21:01)
[2024-05-29] MEDS: TICAGRELOR 90MG TABLET 180 MG PO (21:03)
[2024-05-29 21:04] LABS: Basophils # 0.3 K/mm3 (0-0.2); Basophils % 2.4 % (0.1-2.0); Eosinophils # 0.2 K/mm3 (0.0-0.4); Hematocrit 52.7 % (37.0-47.0); Hemoglobin 16.9 g/dL (12.2-16.2); Lymphocytes # 3.3 K/mm3 (0.7-4.5); Lymphocytes % 27.9 % (10-50); Mean Corpuscular Hemoglobin 30.4 pg (27.0-31.2); Mean Corpuscular Volume 94.9 fl (81-99); Mean Platelet Volume 8.5 fl (7.4-10.4); Monocytes # 0.7 K/mm3 (0.1-1.0); Monocytes % 6.1 % (1.7-9.3); Neutrophils # 7.3 K/mm3 (1.8-7.8); Neutrophils % 61.7 % (37.0-80.0); Platelet Count 228 K/mm3 (142-424); Red Blood Count 5.55 M/mm3 (4.20-5.40); Red Cell Distribution Width 13.9 % (11.5-17.5); White Blood Count 11.9 K/mm3 (4.8-10.8)
[2024-05-29] MEDS: HEPARIN SODIUM 5,000 UNIT/ML VIAL 8200 UNIT IV (21:05)
--- NOTE | 2024-05-29 21:07 | IR_ITS ---
APPROVED REPORT Patient Location: Emergent Mems Integration Engineer: AMAURY Kelly RT (R) PROCEDURES Left heart catheterization Left ventriculogram Selective coronary angiogram Drug-eluting stent deployment to the proximal mid and distal dominant right coronary in a contiguous manner INDICATION Acute inferior ST elevation myocardial infarction Informed consent was obtained prior to the procedure. COMPLICATIONS NONE Estimated Blood Loss: LESS THAN 10 ML TECHNIQUE One percent lidocaine used to anesthetize the right anterior aspect of the wrist. The right radial artery was accessed via the Seldinger technique. A 6 Sinhala sheath was placed in the right radial artery. 2.5 mg of Verapamil, 800 mcg of nitroglycerin, 1mg Lidocaine and 5000 U Heparin were given through the arterial sheath. A MOgene catheter was used to perform right coronary artery angiography. A Choice PT extra-support wire was placed distal to the thrombosis and a 3 mm x 38 mm Felix frontier stent was deployed initially at 14 zack reducing the critical stenosis and restoring DOLLY-3 flow. An additional 3 mm x 15 mm Felix frontier stent was placed distal to the for stent and deployed at 16 zack. The balloon was brought back and deployed at 20 zack throughout the 38 mm stent. An additional 3 mm x 18 mm Felix frontier stent was placed proximal to the for stent yet still overlapping and deployed at 20 zack. The balloon was then advanced and deployed at 24 zack throughout the mid proximal segment. The third stent which was placed was also postdilated at 24 zack. Following this after achieving excellent angiographic results and restoring DOLLY-3 flow the apparatus was used to perform left coronary angiography left heart catheterization left ventriculogram. At the end the procedure the apparatus was removed the sheath was removed and hemostasis was achieved using TR banding patient was transferred to the postop putting in stable condition ANGIOGRAPHIC RESULTS The left main artery Normal The left anterior descending artery Has proximal smooth 20 to 30% stenosis. Mid myocardial bridge compresses at 30% during systole. The LAD is large and wraps the apex The circumflex artery Nondominant with an ostial smooth 20 to 30% stenosis The right coronary artery Large dominant proximally thrombosed. Following revascularization the proximal mid and distal segment is widely patent with excellent inline DOLLY-3 flow into the distal segment The FARLEY ventriculogram reveals Normal ejection fraction estimate 65% The left ventricular end-diastolic pressure 20 mmHg IMPRESSION Acute inferior ST elevation myocardial infarction Successful stenting of the proximal mid and distal LAD in a contiguous manner 100% occlusion reduced to 0% with 3 contiguous drug-eluting stents Normal ejection fraction with mild inferior wall hypokinesis Elevated LVEDP Malignant hypertension PLAN 1. Brilinta and aspirin 2. Recommend renal duplex in the morning given malignant hypertension 3. LDL less than 55 to proceed with high intensity statin 4. Patient started the cardiac catheterization in sinus rhythm however he was in atrial fibrillation at the end of the procedure. Watch her for a few hours and if she maintains atrial fibrillation with then treat with Lovenox and consider amiodarone IV in the morning if she remains in atrial fibrillation overnight 5. Formal echocardiogram in the morning 6. Control of hypertension consider IV nitroglycerin drip and possibly night pride should patient's blood pressure become malignant in the 200s again Electronically signed by : Amador Mcmillan MD 05/29/2024 22:04:42
[2024-05-29 21:08] LABS: Albumin Level 4.3 g/dl (3.5-5.0); Chloride 105 mmol/L (98-107); Potassium 4.3 mmoL/L (3.5-5.1); Sodium 139 mmol/L (136-145)
[2024-05-29 21:11] LABS: Alanine Aminotransferase 25 U/L (12-78); Albumin/Globulin Ratio 1.3 (1.1-1.8); Alkaline Phosphatase 79 U/L (38-126); Anion Gap 13.3 mEq/L (5-15); Aspartate Amino Transferase 33 U/L (14-36); Bilirubin,Total 0.7 mg/dl (0.2-1.3); Blood Urea Nitrogen 17 mg/dl (7-17); Calcium 9.2 mg/dl (8.4-10.2); Carbon Dioxide 25 mmol/L (22.0-30.0); Creatinine Clearance Estimated 53 mL/min (50-200); Estimated Glomerular Filt Rate 48 ml/min (>60); GFR (African American) 58 ML/MIN (>60); Globulin 3.3 g/dL (1.3-3.2); Glucose 123 mg/dl (74-100); Total Protein,Serum 7.6 g/dl (6.3-8.2)
--- NOTE | 2024-05-29 21:18 | PC.NURSE ---
Stemi called at 2046, pt placed on Zoll monitor, bilateral IVs placed, medications given, son (deborah) called and updated he is almost here.
[2024-05-29 21:27] LABS: Troponin I < 0.01 ng/ml (0.00-0.034)
[2024-05-29] MEDS: VERAPAMIL 2.5MG/ML 2ML VIAL 2.5 MG IV (21:40)
[2024-05-29] MEDS: LIDOCAINE 1% 10ML MDV 20 ML IJ (21:40)
[2024-05-29] MEDS: HEPARIN 1,000 UNITS/500ML NS (CATH LAB) 3000 UNIT IV (21:41)
[2024-05-29] MEDS: 0.9 % SODIUM CHLORIDE 500 ML 25 ML IV (21:41)
[2024-05-29] MEDS: NITROGLYCERIN 800MCG/8ML SYR (CATH LAB) 800 MCG IA (21:41)
[2024-05-29] MEDS: diphenhydrAMINE 50MG/ML VIAL 50 MG IV (21:41)
[2024-05-29] MEDS: FENTANYL 100MCG/2ML VIAL 50 MCG IV (21:46)
[2024-05-29] MEDS: MIDAZOLAM HCL 1MG/1ML 5ML VIAL 1 MG IV (21:46)
[2024-05-29] MEDS: HEPARIN 1,000 UNITS/ML 10ML VIAL (CATH LAB) 10000 UNIT IV ×2 (21:49→22:02)
[2024-05-29 22:26] LABS: CATHL Activated Clotting Time 258 SEC (74-125)
[2024-05-29 22:27] LABS: CATHL Activated Clotting Time 236 SEC (74-125)
[2024-05-29] MEDS: IOPAMIDOL-370 (76%);100ML BOTTLE 75 ML IV (22:31)
--- NOTE | 2024-05-29 22:37 | PC.NURSE ---
pt arrived to floor from cardiac catheterization technologist via stretcher @22:30
--- NOTE | 2024-05-29 22:40 | ECG_ITS ---
APPROVED REPORT Exam: Resting ECG HR:93 bpm ECG Measurements Heart Rate 93 AXES QRSd 85 QRS 71 QT 366 T 76 QTc 416 Conclusion SUPRAVENTRICULAR RHYTHM MINIMAL ST DEPRESSION [0.025+ mV ST DEPRESSION] ABNORMAL RHYTHM ECG UNCONFIRMED REPORT Electronically signed by : Mick Arellano MD 05/30/2024 08:47:06
[2024-05-29] MEDS: AMIODARONE HCL 150 MG in DEXTROSE 5 % IN WATER 100 ML 618 MG IV (22:56)
[2024-05-29] MEDS: AMIODARONE HCL 900 MG in DEXTROSE 5 % IN WATER 500 ML 34.53 MG IV (22:57)
[2024-05-29] MEDS: NITROGLYCERIN IN 5 % DEXTROSE 250 ML 1.5 MG IV (23:02)
--- NOTE | 2024-05-29 23:52 | PC.NURSE ---
Addendum entered by Miguel Birch RN 05/30/24 05:28: 0528 pt on RA with oxygen sats >90% Original Note: while sleeping, patient oxygen sats dropped to 88/89% on RA. denies JAYSHREE/SA. placed 1L NC with oxygen sats >90%.
[2024-05-30] VITALS (50 sets, daily range): BP systolic 120–175; BP diastolic 60–90; PULSE 63–80; RESP 12–24; TEMP 36.4–36.9; O2SAT 93–98; BMI 29.9
--- NOTE | 2024-05-30 00:33 | PC.NURSE ---
Amino (+ amino bolus) and Nitro gtt started at 2300. air removed from TR band between [id number] without complications, hematoma or bleeding (only minor light blue bruising) - telfa and tegaderm applied with brace back on for safety while sleeping at 0030. education provided r/t not using right wrist/arm, bending, applying pressure, etc. bilateral radial and pedal pulses 2+. denies cp, soa. Patient has bed alarm on tonight r/t recent procedure/sedation. Nitro gtt paused at 0010 with SBP at 120's - see vitals/NOV. 29 - patient resting comfortably in bed at this time.
--- NOTE | 2024-05-30 00:36 | P.HP_ITS ---
History of Present Illness *Admission Date: 05/30/24 *Reason for visit:: Sudden onset of chest pain *History of present illness: Patient came the emergency room for sudden onset of chest pain that was crushing and quite uncomfortable. Found to be having a STEMI. Emergency room physician contacted Dr. Mcmillan and patient was taken to Production Machine Computer Operator. I was notified by the ER physician and do agree with this and will then admit the patient for Dr. Mcmillan after catheterization is completed. Patient is now in her room she has been relieved of her chest pain. Appears to be comfortable talking well and actually has a smile on her face [facility] Disclaimer: The information contained in this section may have been updated after the patient was seen, as this information can be updated by other users. Medical History (Updated 05/30/24 @ 00:54 by Aldo Wheatley APRN) Former smoker Bullous impetigo History of kidney stones History of colon cancer Colon cancer Surgical History History of cholecystectomy Social History Smoking Status: Former smoker second hand exposure: No alcohol intake: never substance use type: denies use current occupational status: retired Travel in the last 8 weeks: None household members: spouse housing: house current occupational exposures/hazards: No caffeine: Yes Review of Systems Review of Systems Review of systems:: pertinent systems reviewed and negative unless documented below Review of systems (narrative): Seeing the patient and significant chest pain in the ER in quite distress. This has resolved post catheterization reevaluating her on the floor she is comfortable talking smiling and showing no signs of distress nitroglycerin drip I think it has already been discontinued blood pressure no longer hypertensive Constitutional Constitutional: Reports as per HPI Comments: Presently comfortable Eyes Eyes: Reports as per HPI ENT Ears, Nose, Mouth, and Throat: Reports as per HPI *Cardiovascular Cardiovascular: Reports chest pain, Reports chest pain at rest, Reports chest pain with activity and Reports dyspnea Comments: Chest pain and shortness of breath now relieved post catheterization *Respiratory Respiratory: Reports dyspnea Comments: Now relieved both catheterization *Gastrointestinal Gastrointestinal: Reports as per HPI Comments: Patient no longer nauseated after catheterization *Genitourinary Genitourinary: Reports as per HPI *Musculoskeletal Musculoskeletal: Reports as per HPI Integumentary/Breasts Skin/Breast: Reports as per HPI *Neurologic Comments: Patient reports no deficit no headache Psychiatric Comments: Patient reports feeling much better now that she is not in pain and has no complaints at the present time Endocrine Endocrine: Reports as per HPI Hematologic/Lymphatic Hematologic/Lymphatic: Reports as per HPI Allergic/Immunologic Allergic/Immunologic: Reports as per HPI Meds Home Medications and Allergies Home Medications ?Medication ?Instructions ?Recorded ?Confirmed ?Type cholecalciferol (vitamin D3) 10 10 mcg PO DAILY 05/29/24 05/29/24 History mcg (400 unit) capsule (Vitamin D3) levothyroxine 50 mcg tablet 50 mcg PO DAILY 05/29/24 05/29/24 History valsartan 80 mg tablet 80 mg PO DAILY 05/29/24 05/29/24 History New Prescriptions to Start Prescriptions: Allergies Allergy/AdvReac Type Severity Reaction Status Date / Time No Known Allergies Allergy Verified 07/03/22 11:15 Exam Data for Last 24 hours Vital signs and Labs for Last 24 Hours: Temp Pulse Resp BP Pulse Ox O2 Del Method O2 Flow Rate 98.1 F 79 14 123/69 96 Nasal Cannula 1 05/29/24 22:45 05/30/24 00:15 05/30/24 00:15 05/30/24 00:15 05/30/24 00:15 05/30/24 00:15 05/30/24 00:15 Laboratory Results - last 24 hr 05/29/24 20:53: WBC 11.9 H, RBC 5.55 H, Hgb 16.9 H, Hct 52.7 H, MCV 94.9, MCH 30.4, MCHC 32.0, RDW 13.9, Plt Count 228, MPV 8.5, Neut % (Auto) 61.7, Lymph % (Auto) 27.9, [place] % (Auto) 6.1, Eos % (Auto) 2.0, Baso % (Auto) 2.4 H, Neut # (Auto) 7.3, Lymph # (Auto) 3.3, [place] # (Auto) 0.7, Eos # (Auto) 0.2, Baso # (Auto) 0.3 H, Sodium 139, Potassium 4.3, Chloride 105, Carbon Dioxide 25, Anion Gap 13.3, BUN 17, Creatinine 1.10 H, Estimated Creat Clear 53, Estimated GFR 48 L, Est GFR ( Amer) 58 L, Glucose 123 H, Calcium 9.2, Total Bilirubin 0.7, AST 33, ALT 25, Alkaline Phosphatase 79, Troponin I < 0.01, Total Protein 7.6, Albumin 4.3, Globulin 3.3 H, Albumin/Globulin Ratio 1.3 05/29/24 21:27: Activated Clotting Time 236 H* 05/29/24 21:41: Activated Clotting Time 258 H* I & O for Last 24 hours: Intake & Output 05/27/24 05/28/24 05/29/24 05/30/24 23:59 23:59 23:59 23:59 Intake Total 0.55 / 220.55 222.35 / 222.35 Balance 0.55 / 220.55 222.35 / 222.35 Weight 81.647 kg Narrative: Patient received from Production Machine Computer Operator status postplacement of 3 stents much improved from when she was seen in the ER, physically stable mentally alert and oriented Constitutional Constitutional: no acute distress Comments: Patient is comfortable at the present time *Routine HEENT Exam Head: Present normocephalic and atraumatic Eye: Present EOMI, PERRL and normal accommodation ENT: Present mucous membranes moist *Routine Neck Exam Neck: Present supple and full ROM Routine Chest/Breast/Axilla Exam Chest wall: Present tenderness (Patient denies any chest wall tenderness at this time) *Routine Respiratory Exam Respiratory: Present normal respiratory effort and able to speak in complete sentences *Routine Cardiovascular Exam Cardiovascular: Present RRR, Normal S1 and Normal S2 Comments: No edema and distal extremities *Routine Abdominal Exam Abdominal: Present soft and normoactive bowel sounds *Routine Rectal Exam Rectal:: deferred *Routine Genitalia Exam Genitalia:: deferred *Routine Extremities Exam Extremities: Present full ROM, pulses intact and normal capillary refill Comments: Sitting up in bed able to move all extremities well and reposition herself without assistance Routine Back/Spine/Pelvis Exam Back/Spine: Present full ROM *Routine Skin Exam Skin: Present intact and normal turgor *Routine Neurological Exam Neurological: Present alert, oriented X3, vision grossly intact, hearing grossly intact and normal speech Routine Psychiatric Exam Psychiatric: Present normal affect, normal thought process, cooperative, good insight and good judgment Additional findings Additional findings: Noting past history of anemia patient has an abdominal scar related to a colon resection due to colon cancer., Also is hypothyroid and is on medication replacement and long history of hypertension that is in much better control post stenting as blood pressure was greater than 200 upon arrival to the emergency r oom H&P: Result Impressions 1. Coronary artery disease with blockage leading to STEMI 2. Malignant hypertension related to above now and better control 3. Hypothyroidism, on medical replacement 4. Chronic hypertension on medical management Imaging and Cardiology Chest x-ray: Additional comments: Lungs were clear of any type of fluid consolidation or atelectasis Assessment and Plan *Assessment and plan (1) STEMI (ST elevation myocardial infarction): Status: Acute Category: Medical Code(s): I21.3 - ST elevation (STEMI) myocardial infarction of unspecified site (2) Chest pain: Status: Acute Category: Medical Code(s): R07.9 - Chest pain, unspecified (3) Acute MA, inferior wall: Status: Acute Category: Medical Code(s): I21.19 - ST elevation (STEMI) myocardial infarction involving other coronary artery of inferior wall (4) Malignant hypertension: Status: Acute Category: Medical Code(s): I10 - Essential (primary) hypertension (5) Elevated left ventricular end-diastolic pressure: Status: Acute Category: Medical Code(s): R94.30 - Abnormal result of cardiovascular function study, unspecified (6) Former smoker: Status: Inactive Category: Social Hx Code(s): Z87.891 - Personal history of nicotine dependence Plan 1, postcardiac catheterization: Dr. Mcmillan has entered orders for the patient. These are being carried out, started regular home medications. Will monitor for return of pain or changes in EKG.
[2024-05-30 00:42] LABS: Troponin I 1.82 ng/ml (0.00-0.034)
--- NOTE | 2024-05-30 01:08 | PC.NURSE ---
Addendum entered by Miguel Birch RN 05/30/24 01:39: reassessed dsg, no bleeding noted Original Note: patient had quarter sized blood on gauze - replaced dsg - CATEGORY CONSULTANT visualized blood. pressure dsg added on top of tegaderm for the time being.
--- NOTE | 2024-05-30 03:05 | PC.NURSE ---
Addendum entered by Miguel Birch RN 05/30/24 04:12: patient is maintaining 130's/140 SBP @ 70 on nitro gtt Original Note: 3 consecutive BP's >140's systolic with 10 min - resumed nitro gtt at 5
[2024-05-30] MEDS: LEVOTHYROXINE 50MCG (0.05MG) TAB 50 MCG PO (06:00)
[2024-05-30 07:28] LABS: Basophils % 0.4 % (0.1-2.0); Eosinophils # 0.1 K/mm3 (0.0-0.4); Lymphocytes # 1.7 K/mm3 (0.7-4.5); Monocytes # 0.7 K/mm3 (0.1-1.0); Neutrophils % 79.5 % (37.0-80.0); White Blood Count 12.3 K/mm3 (4.8-10.8)
[2024-05-30 07:34] LABS: Alanine Aminotransferase 38 U/L (12-78); Albumin Level 3.4 g/dl (3.5-5.0); Albumin/Globulin Ratio 1.1 (1.1-1.8); Alkaline Phosphatase 75 U/L (38-126); Anion Gap 11.9 mEq/L (5-15); Aspartate Amino Transferase 73 U/L (14-36); Bilirubin,Total 0.5 mg/dl (0.2-1.3); Blood Urea Nitrogen 13 mg/dl (7-17); Calcium 8.4 mg/dl (8.4-10.2); Carbon Dioxide 22 mmol/L (22.0-30.0); Chloride 106 mmol/L (98-107); Creatinine Clearance Estimated 59 mL/min (50-200); Estimated Glomerular Filt Rate 60 ml/min (>60); GFR (African American) 73 ML/MIN (>60); Glucose 132 mg/dl (74-100); Potassium 3.9 mmoL/L (3.5-5.1); Sodium 136 mmol/L (136-145); Total Protein,Serum 6.4 g/dl (6.3-8.2)
[2024-05-30 08:01] LABS: Basophils # 0.1 K/mm3 (0-0.2); Eosinophils % 0.8 % (0.1-12.0); Hematocrit 45.8 % (37.0-47.0); Lymphocytes % 13.7 % (10-50); Mean Corpuscular HGB Conc 30.9 g/dL (31.8-35.4); Mean Corpuscular Hemoglobin 29.5 pg (27.0-31.2); Mean Corpuscular Volume 95.4 fl (81-99); Mean Platelet Volume 8.5 fl (7.4-10.4); Monocytes % 5.6 % (1.7-9.3); Neutrophils # 9.8 K/mm3 (1.8-7.8); Platelet Count 201 K/mm3 (142-424)
[2024-05-30 08:14] LABS: Hemoglobin 14.2 g/dL (12.2-16.2)
[2024-05-30] MEDS: TICAGRELOR 90MG TABLET 90 MG PO ×2 (08:44→20:58)
[2024-05-30] MEDS: ASPIRIN EC 81MG TABLET 81 MG PO (08:45)
[2024-05-30] MEDS: IRBESARTAN 75MG TABLET 75 MG PO (08:45)
[2024-05-30 08:54] LABS: Free Thyroxine Index 3.7 ug/dL (5.93-13.13); T4 (Thyroxine) 11.2 ug/dl (5.53-11.0); Triiodothryronine (T3) Uptake 33 % (23.5-40.5)
[2024-05-30 09:05] LABS: Magnesium 2.1 mg/dl (1.6-2.3)
[2024-05-30 09:07] LABS: Thyroid Stimulating Hormone 2.12 uIU/mL (0.465-4.68)
--- NOTE | 2024-05-30 09:38 | HMH.PHAINT1 ---
Pharmacy Intervention Comments: HOME MEDICATION LIST VERIFIED USING LIST FROM OUTPATIENT PHARMACY AND PATIENT INTERVIEW
--- NOTE | 2024-05-30 09:59 | CA_ITS ---
APPROVED REPORT EXAM: Comprehensive 2D, Doppler, and color-flow Echocardiogram Assistant Winemaker: Salma Salinas RCS, RVS Ht: 5 ft 4 in Wt: 179lbs BSA: 1.87 BP: 123/69 mmHg Indications: stemi, aFIB, cad, cp, htn, eX-SMOKER 2D Dimensions IVSd 0.87 cm LVEF (Visual) 70.10 % PWd 0.81 cm LVEF (Sainz's) 58.60 % LVDd 4.94 cm LV Volume 52.70 mL LVDs 2.98 cm LV Volume Index 28.758505 mL/m2 F: 29 - 61 Left Atrium 3.77 cm LA Volume 35.60 mL RVID Base (AP4) 2.96 cm (M/F) 2.5-4.1 LA Volume Index 19.468861 mL/m2 (M/F) 16-34 EF AP4 51.50 % EF AP2 63.3 % EF BP 58.6 % GL Strain -19.7 % M-Mode Dimensions RVDd 2.05 cm (0.9-2.6) LVDd 4.94 cm (3.5-5.7) Ao Diam 3.09 cm (2.0-3.7) LVDs 3.08 cm (3.5-5.7) IVSd 0.70 cm (0.6-1.1) PWd 0.67 cm (0.6-1.1) EF (Teich) 65.10% EPSs 0.17 cm FS 37.03% EDV (Teich) 107.00 mL TAPSE 1.70 (<1.7) ESV (Teich) 37.30 mL LV Diastology E Decel Time 203 (160-240 msec) E/A Ratio 0.93 MED E' 5.6 (>= 7 cm/sec) MED A' 8.40 cm/s E'/MED E' Ratio 17.57 (<= 14) LAT E' 7.1 (>= 10 cm/sec) LAT A' 6.70 cm/s E/LAT E' Ratio 13.86 (<= 14) Aortic Valve LVOT Max 112.0 (70-110 cm/s) LVOT VTI 24.36 cm AoV Peak Carter. 156.0 (50-130 cm/s) AO Mean GR. 4.90 (<5 mmHg) AO VTI 31.9 (18-25 cm) Mitral Valve MV E Max Carter. 98.0 (40-130 cm/s) MV A Velocity 106.0 (40-130 cm/s) E/A Ratio 0.93 MV Decel. Time 203 (160-240 ms) MV Mean Gr. 1.60 (<2mmHg) Tricuspid Valve TR P. Velocity 128.00 cm/s RAP Estimate 10.00 mmHg RVSP 16.50 mmHg Left Ventricle The left ventricle is normal size. The left ventricular systolic function is normal. The left ventricular ejection fraction is within the normal range. There is increased LV wall thickness. There is normal LV segmental wall motion. The left ventricular diastolic function is normal. LVEF is 55%. Right Ventricle The right ventricle is normal size. The right ventricular systolic function is normal. Atria The left atrium size is normal. The right atrium size is normal. There is no Doppler evidence of interatrial shunt. Aortic Valve The aortic valve is mildly thickened. There is no aortic valvular stenosis. Trace aortic regurgitation. Mitral Valve The mitral valve leaflets are mildly thickened. No evidence of mitral valve stenosis. Mild mitral regurgitation. Tricuspid Valve The tricuspid valve leaflets are thin and pliable. Trace tricuspid regurgitation. There is insufficient TR jet to estimate RVSP. Pulmonic Valve The pulmonary valve is normal in structure. Trace pulmonic regurgitation. Great Vessels The aortic root is normal in size. The ascending aorta is not well-visualized. The IVC is not well-visualized. Pericardium There is no pericardial effusion. Other Information Study Quality: Fair Conclusion Normal biventricular systolic function. Mild MR. Electronically signed by : Shira Hartman MD 05/31/2024 00:51:41
--- NOTE | 2024-05-30 13:24 | P.CONCA_ITS ---
History of Present Illness History of Present Illness Consult date: 05/30/24 Requesting physician: Aldo Wheatley Chief complaint: chest pain History of present illness: 79-year-old white female without known cardiovascular disease presented to the emergency room last night with chest tightness and pressure radiating to her neck occurring at rest which began suddenly, no modifying factors. She was diagnosed with anterior wall STEMI. She had successful stenting of the LAD which was nearly 100% occluded. 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 This morning her symptoms are significantly better. She is in sinus rhythm and is normotensive. Prelim echo shows normal EF. No arrhythmias noted this morning. [facility] Disclaimer: The information contained in this section may have been updated after the patient was seen, as this information can be updated by other users. Medical History Former smoker Bullous impetigo History of kidney stones History of colon cancer Colon cancer Surgical History History of cholecystectomy Social History Smoking Status: Former smoker second hand exposure: No alcohol intake: never substance use type: denies use current occupational status: retired Travel in the last 8 weeks: None household members: spouse housing: house current occupational exposures/hazards: No caffeine: Yes Review of Systems Constitutional Constitutional: Denies fatigue and Denies weakness Eyes Eyes: Denies loss of vision ENT Ears, Nose, Mouth, and Throat: Denies hearing loss and Denies vertigo *Cardiovascular Cardiovascular: Denies chest pain, Denies dyspnea and Denies syncope *Respiratory Respiratory: Denies cough and Denies dyspnea *Gastrointestinal Gastrointestinal: Denies change in stool character, Denies nausea and Denies vomiting *Musculoskeletal Musculoskeletal: Denies muscle weakness Integumentary/Breasts Skin/Breast: Denies changing lesions *Neurologic Neurologic: Denies loss of vision, Denies syncope, Denies vertigo and Denies weakness Endocrine Endocrine: Denies fatigue Exam Data for Last 24 hours Vital signs and Labs for Last 24 Hours: Temp Pulse Resp BP Pulse Ox O2 Del Method O2 Flow Rate 97.8 F 68 19 137/71 93 L Room Air 1 05/30/24 12:00 05/30/24 10:00 05/30/24 10:00 05/30/24 10:00 05/30/24 10:00 05/30/24 11:00 05/30/24 04:15 Laboratory Results - last 24 hr 05/29/24 20:53: WBC 11.9 H, RBC 5.55 H, Hgb 16.9 H, Hct 52.7 H, MCV 94.9, MCH 30.4, MCHC 32.0, RDW 13.9, Plt Count 228, MPV 8.5, Neut % (Auto) 61.7, Lymph % (Auto) 27.9, [place] % (Auto) 6.1, Eos % (Auto) 2.0, Baso % (Auto) 2.4 H, Neut # (Auto) 7.3, Lymph # (Auto) 3.3, [place] # (Auto) 0.7, Eos # (Auto) 0.2, Baso # (Auto) 0.3 H, Sodium 139, Potassium 4.3, Chloride 105, Carbon Dioxide 25, Anion Gap 13.3, BUN 17, Creatinine 1.10 H, Estimated Creat Clear 53, Estimated GFR 48 L, Est GFR ( Amer) 58 L, Glucose 123 H, Calcium 9.2, Total Bilirubin 0.7, AST 33, ALT 25, Alkaline Phosphatase 79, Troponin I < 0.01, Total Protein 7.6, Albumin 4.3, Globulin 3.3 H, Albumin/Globulin Ratio 1.3 05/29/24 21:27: Activated Clotting Time 236 H* 05/29/24 21:41: Activated Clotting Time 258 H* 05/29/24 23:53: Troponin I 1.82 H 05/30/24 05:58: WBC 12.3 H, RBC 4.80, Hgb 14.2 D, Hct 45.8, MCV 95.4, MCH 29.5, MCHC 30.9 L, RDW 14.0, Plt Count 201, MPV 8.5, Neut % (Auto) 79.5, Lymph % (Auto) 13.7, [place] % (Auto) 5.6, Eos % (Auto) 0.8, Baso % (Auto) 0.4, Neut # (Auto) 9.8 H, Lymph # (Auto) 1.7, [place] # (Auto) 0.7, Eos # (Auto) 0.1, Baso # (Auto) 0.1, Sodium 136, Potassium 3.9, Chloride 106, Carbon Dioxide 22, Anion Gap 11.9, BUN 13, Creatinine 0.90, Estimated Creat Clear 59, Estimated GFR 60, Est GFR ( Amer) 73 D, Glucose 132 H, Calcium 8.4, Magnesium 2.1, Total Bilirubin 0.5, AST 73 H D, ALT 38 D, Alkaline Phosphatase 75, Total Protein 6. 4, Albumin 3.4 L D, Globulin 3.0, Albumin/Globulin Ratio 1.1, TSH 2.12, Free T4 Index 3.7 L, Thyroxine (T4) 11.2 H, T3 Uptake 33 I & O for Last 24 hours: Intake & Output 05/27/24 05/28/24 05/29/24 05/30/24 23:59 23:59 23:59 23:59 Intake Total 0.55 / 220.55 747.038 / 747.038 Output Total 0 / 0 Balance 0.55 / 220.55 747.038 / 747.038 Weight 180 lb 179 lb 15.766 oz Constitutional Constitutional: no acute distress and cooperative *Routine HEENT Exam Eye: Present PERRL *Routine Respiratory Exam Respiratory: Present CTA bilaterally; Absent accessory muscle use, wheezes or crackles *Routine Cardiovascular Exam Cardiovascular: Present RRR, Normal S1 and Normal S2; Absent murmur, gallop or rubs Comments: Right radial cath site normal on inspection and palpation *Routine Abdominal Exam Abdominal: Present soft; Absent tenderness *Routine Extremities Exam Extremities: Present pulses intact; Absent cyanosis or edema *Routine Skin Exam Skin: Present intact; Absent erythema or wounds *Routine Neurological Exam Neurological: Present alert and oriented X3 Routine Psychiatric Exam Psychiatric: Present cooperative Meds Home Medications and Allergies Home Medications ?Medication ?Instructions ?Recorded ?Confirmed ?Type cholecalciferol (vitamin D3) 10 10 mcg PO DAILY 05/29/24 05/29/24 History mcg (400 unit) capsule (Vitamin D3) levothyroxine 50 mcg tablet 50 mcg PO DAILY 05/29/24 05/29/24 History valsartan 80 mg tablet 80 mg PO DAILY 05/29/24 05/29/24 History New Prescriptions to Start Prescriptions: Allergies Allergy/AdvReac Type Severity Reaction Status Date / Time No Known Allergies Allergy Verified 07/03/22 11:15 Assessment and Plan *Assessment and plan (1) STEMI (ST elevation myocardial infarction): Status: Acute Category: Medical Code(s): I21.3 - ST elevation (STEMI) myocardial infarction of unspecified site (2) Malignant hypertension: Status: Acute Category: Medical Code(s): I10 - Essential (primary) hypertension (3) Atrial fibrillation with rapid ventricular response: Status: Acute Category: Medical Code(s): I48.91 - Unspecified atrial fibrillation Plan Anterior wall STEMI 05/29 -Successful stent to LAD -Normal EF -Continue DAPT, beta-lonnie, ARB, statin -Will observe 48 hours post VT Hypertensive urgency -BP greater than 200 on admission -Stable post cath -Continue to monitor A-fib RVR -New diagnosis in setting of VT -She is converted to sinus rhythm -Will hold on OAC as this was immediately post VT -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
--- NOTE | 2024-05-30 13:27 | EXP.ACUTE.PN ---
Subjective *Date: 05/30/24 *Time: 13:27 Interval history: Patient came to [facility] ER last night after experiencing chest pain for a few hours. 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 She had an episode of A. fib during the cath and has been on an Amiodarone and NTG drip. Medical Exam Vital signs and Labs for Last 24 Hours: Vital Signs Temp Pulse Pulse Pulse Resp BP BP 05/30/24 12:00 97.8 F 05/30/24 11:00 05/30/24 10:00 68 19 137/71 05/30/24 08:53 05/30/24 08:00 70 05/30/24 08:00 98.4 F 05/30/24 08:00 97.9 F 72 19 151/69 H 05/30/24 07:53 05/30/24 06:46 05/30/24 06:40 05/30/24 06:35 05/30/24 06:30 05/30/24 06:25 05/30/24 06:20 05/30/24 06:15 05/30/24 06:10 05/30/24 06:05 05/30/24 06:00 74 16 05/30/24 05:55 05/30/24 05:50 05/30/24 05:40 05/30/24 05:30 05/30/24 05:20 05/30/24 05:15 63 14 05/30/24 05:15 05/30/24 05:10 05/30/24 05:05 05/30/24 05:00 05/30/24 05:00 05/30/24 04:55 05/30/24 04:50 05/30/24 04:45 05/30/24 04:40 05/30/24 04:37 05/30/24 04:30 05/30/24 04:20 05/30/24 04:15 68 14 05/30/24 04:15 05/30/24 04:10 05/30/24 04:05 05/30/24 04:00 70 05/30/24 04:00 05/30/24 04:00 05/30/24 03:55 05/30/24 03:50 05/30/24 03:45 05/30/24 03:40 05/30/24 03:35 05/30/24 03:30 05/30/24 03:25 05/30/24 03:15 05/30/24 03:15 72 14 05/30/24 03:05 05/30/24 03:00 05/30/24 02:15 66 14 05/30/24 01:15 66 12 05/30/24 01:00 05/30/24 00:45 73 15 05/30/24 00:20 05/30/24 00:15 98.4 F 79 14 05/30/24 00:00 05/30/24 00:00 80 05/29/24 23:45 89 18 05/29/24 23:15 87 18 05/29/24 23:00 05/29/24 23:00 91 H 18 05/29/24 23:00 05/29/24 22:45 98.1 F 91 H 18 05/29/24 22:30 98.1 F 92 H 18 05/29/24 22:20 98 H 20 05/29/24 22:10 85 20 05/29/24 22:07 90 86 20 05/29/24 22:04 98 F 54 L 20 147/102 H 05/29/24 21:25 54 L 20 117/80 05/29/24 21:05 51 L 05/29/24 20:47 98 F 55 L 16 BP Pulse Ox O2 Del Method O2 Flow Rate 05/30/24 12:00 05/30/24 11:00 Room Air 05/30/24 10:00 93 L Room Air 05/30/24 08:53 Room Air 05/30/24 08:00 05/30/24 08:00 05/30/24 08:00 93 L Room Air 05/30/24 07:53 Room Air 05/30/24 06:46 Room Air 05/30/24 06:40 143/72 H 05/30/24 06:35 140/65 05/30/24 06:30 141/70 H 05/30/24 06:25 140/72 05/30/24 06:20 149/76 H 05/30/24 06:15 144/73 H 05/30/24 06:10 124/76 05/30/24 06:05 143/60 H 05/30/24 06:00 126/65 95 Room Air 05/30/24 05:55 133/70 05/30/24 05:50 120/64 05/30/24 05:40 138/69 05/30/24 05:30 144/70 H 05/30/24 05:20 142/72 H 05/30/24 05:15 142/73 H 98 Room Air 05/30/24 05:15 142/73 H 05/30/24 05:10 134/71 05/30/24 05:05 141/74 H 05/30/24 05:00 Room Air 05/30/24 05:00 131/74 05/30/24 04:55 126/69 05/30/24 04:50 134/72 05/30/24 04:45 139/68 05/30/24 04:40 134/71 05/30/24 04:37 128/74 05/30/24 04:30 127/73 05/30/24 04:20 133/70 05/30/24 04:15 139/76 94 L Nasal Cannula 1 05/30/24 04:15 139/76 05/30/24 04:10 140/73 05/30/24 04:05 138/74 05/30/24 04:00 05/30/24 04:00 Room Air 05/30/24 04:00 139/70 05/30/24 03:55 142/75 H 05/30/24 03:50 140/79 05/30/24 03:45 160/87 H 05/30/24 03:40 161/85 H 05/30/24 03:35 164/90 H 05/30/24 03:30 174/80 H 05/30/24 03:25 172/78 H 05/30/24 03:15 175/78 H 05/30/24 03:15 149/87 H 94 L Nasal Cannula 1 05/30/24 03:05 162/81 H 05/30/24 03:00 Nasal Cannula 1 05/30/24 02:15 131/76 96 Nasal Cannula 1 05/30/24 01:15 127/65 95 Nasal Cannula 1 05/30/24 01:00 Nasal Cannula 1 05/30/24 00:45 128/69 95 Nasal Cannula 1 05/30/24 00:20 172/89 H 05/30/24 00:15 123/69 96 Nasal Cannula 1 05/30/24 00:00 122/72 05/30/24 00:00 05/29/24 23:45 150/78 H 91 L Nasal Cannula 1 05/29/24 23:15 170/81 H 95 Nasal Cannula 1 05/29/24 23:00 Room Air, Nasal Cannula 1 05/29/24 23:00 175/86 H 96 Room Air 05/29/24 23:00 Room Air, Nasal Cannula 1 05/29/24 22:45 178/93 H 96 Room Air 05/29/24 22:30 177/84 H 90 L Room Air 05/29/24 22:20 189/97 H 96 Room Air 05/29/24 22:10 178/100 H 95 Room Air 05/29/24 22:07 185/108 H 96 Room Air 05/29/24 22:04 05/29/24 21:25 98 Nasal Cannula 2 05/29/24 21:05 05/29/24 20:47 147/126 H 98 Room Air Intake and Output 05/29/24 05/30/24 05/30/24 23:59 07:59 15:59 Intake Total 0.55 / 220.55 477.038 / 747.038 270 / 747.038 Output Total 0 / 0 0 / 0 Balance 0.55 / 220.55 477.038 / 747.038 270 / 747.038 Intake: Intake, Oral Amount 120 / 390 270 / 390 Intake, Total IV Amount 0.55 / 100.55 357.038 / 357.038 Amiodarone HCl 150 mg In 100 / 100 Dextrose 5 % in Water 100 ml @ 618 mls/hr IV ONCE ONE Rx#: [id number] Output: Output, Urine Amount 0 / 0 0 / 0 Other: Number of Voids 0 Number of Unmeasured Voids 1 1 Weight 180 lb 179 lb 15.766 oz Patient Weight 05/30/24 23:59 Weight 179 lb 15.766 oz Laboratory Results - last 24 hr 05/29/24 20:53: WBC 11.9 H, RBC 5.55 H, Hgb 16.9 H, Hct 52.7 H, MCV 94.9, MCH 30.4, MCHC 32.0, RDW 13.9, Plt Count 228, MPV 8.5, Neut % (Auto) 61.7, Lymph % (Auto) 27.9, [place] % (Auto) 6.1, Eos % (Auto) 2.0, Baso % (Auto) 2.4 H, Neut # (Auto) 7.3, Lymph # (Auto) 3.3, [place] # (Auto) 0.7, Eos # (Auto) 0.2, Baso # (Auto) 0.3 H, Sodium 139, Potassium 4.3, Chloride 105, Carbon Dioxide 25, Anion Gap 13.3, BUN 17, Creatinine 1.10 H, Estimated Creat Clear 53, Estimated GFR 48 L, Est GFR ( Amer) 58 L, Glucose 123 H, Calcium 9.2, Total Bilirubin 0.7, AST 33, ALT 25, Alkaline Phosphatase 79, Troponin I < 0.01, Total Protein 7.6, Albumin 4.3, Globulin 3.3 H, Albumin/Globulin Ratio 1.3 05/29/24 21:27: Activated Clotting Time 236 H* 05/29/24 21:41: Activated Clotting Time 258 H* 05/29/24 23:53: Troponin I 1.82 H 05/30/24 05:58: WBC 12.3 H, RBC 4.80, Hgb 14.2 D, Hct 45.8, MCV 95.4, MCH 29.5, MCHC 30.9 L, RDW 14.0, Plt Count 201, MPV 8.5, Neut % (Auto) 79.5, Lymph % (Auto) 13.7, [place] % (Auto) 5.6, Eos % (Auto) 0.8, Baso % (Auto) 0.4, Neut # (Auto) 9.8 H, Lymph # (Auto) 1.7, [place] # (Auto) 0.7, Eos # (Auto) 0.1, Baso # (Auto) 0.1, Sodium 136, Potassium 3.9, Chloride 106, Carbon Dioxide 22, Anion Gap 11.9, BUN 13, Creatinine 0.90, Estimated Creat Clear 59, Estimated GFR 60, Est GFR ( Amer) 73 D, Glucose 132 H, Calcium 8.4, Magnesium 2.1, Total Bilirubin 0.5, AST 73 H D, ALT 38 D, Alkaline Phosphatase 75, Total Protein 6.4, Albumin 3.4 L D, Globulin 3.0, Albumin/Globulin Ratio 1.1, TSH 2.12, Free T4 Index 3.7 L, Thyroxine (T4) 11.2 H, T3 Uptake 33 I & O for Labs for Last 24 Hours: Intake & Output 05/27/24 05/28/24 05/29/24 05/30/24 23:59 23:59 23:59 23:59 Intake Total 0.55 / 220.55 747.038 / 747.038 Output Total 0 / 0 Balance 0.55 / 220.55 747.038 / 747.038 Weight 180 lb 179 lb 15.766 oz Constitutional: Present no acute distress Comment:: Eating lunch, has no chest pain. Respiratory: Present normal respiratory effort Cardiac: Present Reg Rate and Rhythm GI: Present normal bowel sounds; Absent tenderness Extremities: Present normal inspection and full ROM Skin: Present intact; Absent erythema Neuro: Present Grossly Intact and moves all extremities Assessment and Plan *Assessment and plan (1) STEMI (ST elevation myocardial infarction): Status: Acute Category: Medical Code(s): I21.3 - ST elevation (STEMI) myocardial infarction of unspecified site (2) Chest pain: Status: Acute Category: Medical Code(s): R07.9 - Chest pain, unspecified (3) Acute [place], inferior wall: Status: Acute Category: Medical Code(s): I21.19 - ST elevation (STEMI) myocardial infarction involving other coronary artery of inferior wall (4) Malignant hypertension: Status: Acute Category: Medical Code(s): I10 - Essential (primary) hypertension (5) Elevated left ventricular end-diastolic pressure: Status: Acute Category: Medical Code(s): R94.30 - Abnormal result of cardiovascular function study, unspecified (6) Former smoker: Status: Inactive Category: Medical Code(s): Z87.891 - Personal history of nicotine dependence (7) Atrial fibrillation with rapid ventricular response: Status: Acute Category: Medical Code(s): I48.91 - Unspecified atrial fibrillation Plan Continue routine post cath care, will need to discuss treatment plan with cardiology.
[2024-05-30] MEDS: AMIODARONE 200MG TABLET 400 MG PO ×2 (15:05→20:58)
--- NOTE | 2024-05-30 18:15 | PC.NURSE ---
Pt remains off Amiodarone gtt and Nitro gtt. PO amio started today. BP trending up. notified. Awaiting new orders.
[2024-05-30] MEDS: METOPROLOL TARTRATE 50MG TABLET 50 MG PO (18:50)
[2024-05-30] MEDS: PANTOPRAZOLE 40MG TABLET 40 MG PO (20:58)
[2024-05-30] MEDS: ATORVASTATIN 40MG TABLET 80 MG PO (20:58)
[2024-05-31] VITALS: BP 133/75; PULSE 68; PULSE 71; RESP 16; O2SAT 94
--- NOTE | 2024-05-31 01:31 | PC.NURSE ---
Report given to DANIEL Ambrose
[2024-05-31 04:00] VITALS: BP 132/81; PULSE 60; PULSE 66; RESP 16; TEMP 36.9; O2SAT 99; BMI 29.9
[2024-05-31] MEDS: LEVOTHYROXINE 50MCG (0.05MG) TAB 50 MCG PO (06:43)
[2024-05-31 08:00] VITALS: BP 122/64; PULSE 63; RESP 18; TEMP 36.7; O2SAT 97
[2024-05-31] MEDS: AMIODARONE 200MG TABLET 400 MG PO (08:33)
[2024-05-31] MEDS: IRBESARTAN 75MG TABLET 75 MG PO (08:33)
[2024-05-31] MEDS: ASPIRIN EC 81MG TABLET 81 MG PO (08:33)
[2024-05-31] MEDS: TICAGRELOR 90MG TABLET 90 MG PO (08:33)
[2024-05-31] MEDS: METOPROLOL TARTRATE 50MG TABLET 50 MG PO (08:43)
--- NOTE | 2024-05-31 08:55 | EXP.ACUTE.PN ---
Subjective *Date: 05/31/24 *Time: 08:55 Interval history: Patient feels good today, anxious to go home. BP was high overnight, Metoprolol started. Medical Exam Vital signs and Labs for Last 24 Hours: Vital Signs Temp Pulse Pulse Resp BP Pulse Ox O2 Del Method 05/31/24 06:52 Room Air 05/31/24 05:00 Room Air 05/31/24 04:00 60 05/31/24 04:00 98.4 F 66 16 132/81 99 Room Air 05/31/24 03:00 Room Air 05/31/24 00:00 68 05/31/24 00:00 71 16 133/75 94 L Room Air 05/30/24 21:00 Room Air 05/30/24 20:00 74 05/30/24 20:00 97.5 F L 05/30/24 20:00 75 24 163/81 H 95 Room Air 05/30/24 18:45 Room Air 05/30/24 17:05 Room Air 05/30/24 16:00 70 05/30/24 16:00 97.9 F 05/30/24 16:00 75 20 160/76 H 97 Room Air 05/30/24 15:05 Room Air 05/30/24 14:00 73 20 147/73 H 94 L Room Air 05/30/24 13:00 Room Air 05/30/24 12:00 70 05/30/24 12:00 77 20 141/88 H 96 Room Air 05/30/24 12:00 97.8 F 05/30/24 11:00 Room Air 05/30/24 10:00 68 19 137/71 93 L Room Air Intake and Output 05/30/24 05/31/24 05/31/24 23:59 07:59 15:59 Intake Total 660 / 1767.038 0 / 0 Output Total 0 / 0 0 / 0 Balance 660 / 1767.038 0 / 0 Intake: Intake, Oral Amount 660 / 1410 0 / 0 Output: Output, Urine Amount 0 / 0 0 / 0 Other: Number of Unmeasured Voids 1 2 Number of Bowel Movements 1 Weight 179 lb 15.766 oz Patient Weight 05/31/24 23:59 Weight 179 lb 15.766 oz Laboratory Results - last 24 hr 05/30/24 05:58: Magnesium 2.1, TSH 2.12 I & O for Labs for Last 24 Hours: Intake & Output 05/28/24 05/29/24 05/30/24 05/31/24 23:59 23:59 23:59 23:59 Intake Total 0.55 / 220.55 1767.038 / 1767.038 0 / 0 Output Total 0 / 0 0 / 0 Balance 0.55 / 220.55 1767.038 / 1767.038 0 / 0 Weight 180 lb 179 lb 15.766 oz 179 lb 15.766 oz Constitutional: Present no acute distress Respiratory: Present normal respiratory effort Cardiac: Present Reg Rate and Rhythm GI: Present normal bowel sounds; Absent tenderness Extremities: Present normal inspection and full ROM Skin: Present intact; Absent erythema Neuro: Present Grossly Intact and moves all extremities Assessment and Plan *Assessment and plan (1) STEMI (ST elevation myocardial infarction): Status: Acute Category: Medical Code(s): I21.3 - ST elevation (STEMI) myocardial infarction of unspecified site (2) Chest pain: Status: Acute Category: Medical Code(s): R07.9 - Chest pain, unspecified (3) Acute [place], inferior wall: Status: Acute Category: Medical Code(s): I21.19 - ST elevation (STEMI) myocardial infarction involving other coronary artery of inferior wall (4) Malignant hypertension: Status: Acute Category: Medical Code(s): I10 - Essential (primary) hypertension (5) Elevated left ventricular end-diastolic pressure: Status: Acute Category: Medical Code(s): R94.30 - Abnormal result of cardiovascular function study, unspecified (6) Former smoker: Status: Inactive Category: Social Hx Code(s): Z87.891 - Personal history of nicotine dependence (7) Atrial fibrillation with rapid ventricular response: Status: Acute Category: Medical Code(s): I48.91 - Unspecified atrial fibrillation Plan Doing well, prelim echo report has a normal EF, possible discharge home later today.
--- NOTE | 2024-06-02 16:13 | CARE MANAGER ---
Contacted patient related to hospital discharge. Patient states she is doing well. She made her follow up appointments this morning with Dr. Quinteros and cardiology. She is taking her medications and denies any questions or concerns. DANIEL Davenport
--- NOTE | 2024-06-04 14:48 | EXP.DC.SUM ---
General Admission date:: 05/29/24 HPI HPI HPI: Patient came the emergency room for sudden onset of chest pain that was crushing and quite uncomfortable. Found to be having a STEMI. Emergency room physician contacted Dr. Mcmillan and patient was taken to [facility]. I was notified by the ER physician and do agree with this and will then admit the patient for Dr. Mcmillan after catheterization is completed. Patient is now in her room she has been relieved of her chest pain. Appears to be comfortable talking well and actually has a smile on her face Hospital Course Hospital Course Hospital Course: The patient went directly to the [facility] and received 3 stents. She was initially admitted to the hospitalist. She was started on regular home medications. She did have an episode of A-fib during the cath and was placed on amiodarone and a nitroglycerin drip. She was then transferred under the care of Dr. Quinteros. Cardiology wanted to keep the patient for 48 hours post NV. She did convert to sinus rhythm. She was continued on telemetry. By 05/31/2024 she was feeling better and was anxious to go home. Her blood pressure had been high throughout the night and metoprolol was started. Her preliminary echo showed a normal EF and she was stable to be discharged home. Of note, her final echo showed normal biventricular systolic function and mild mitral regurgitation. Exam Data for Last 24 hours Vital signs and Labs for Last 24 Hours: Temp Pulse Resp BP Pulse Ox O2 Del Method O2 Flow Rate 98.0 F 63 18 122/64 97 Room Air 1 05/31/24 08:00 05/31/24 08:00 05/31/24 08:00 05/31/24 08:00 05/31/24 08:00 05/31/24 11:00 05/30/24 04:15 Narrative: Constitutional Constitutional: no acute distress Comments: Patient is comfortable at the present time *Routine HEENT Exam Head: Present normocephalic and atraumatic Eye: Present EOMI, PERRL and normal accommodation ENT: Present mucous membranes moist *Routine Neck Exam Neck: Present supple and full ROM Routine Chest/Breast/Axilla Exam Chest wall: Present tenderness (Patient denies any chest wall tenderness at this time) *Routine Respiratory Exam Respiratory: Present normal respiratory effort and able to speak in complete sentences *Routine Cardiovascular Exam Cardiovascular: Present RRR, Normal S1 and Normal S2 Comments: No edema and distal extremities *Routine Abdominal Exam Abdominal: Present soft and normoactive bowel sounds *Routine Rectal Exam Rectal:: deferred *Routine Genitalia Exam Genitalia:: deferred *Routine Extremities Exam Extremities: Present full ROM, pulses intact and normal capillary refill Comments: Sitting up in bed able to move all extremities well and reposition herself without assistance Routine Back/Spine/Pelvis Exam Back/Spine: Present full ROM *Routine Skin Exam Skin: Present intact and normal turgor *Routine Neurological Exam Neurological: Present alert, oriented X3, vision grossly intact, hearing grossly intact and normal speech Routine Psychiatric Exam Psychiatric: Present normal affect, normal thought process, cooperative, good insight and good judgment Additional findings Additional findings: Noting past history of anemia patient has an abdominal scar related to a colon resection due to colon cancer., Also is hypothyroid and is on medication replacement and long history of hypertension that is in much better control post stenting as blood pressure was greater than 200 upon arrival to the emergency room DS: Diagnosis Discharge Diagnosis (1) STEMI (ST elevation myocardial infarction): Status: Acute Code(s): I21.3 - ST elevation (STEMI) myocardial infarction of unspecified site (2) Chest pain: Status: Acute Code(s): R07.9 - Chest pain, unspecified (3) Acute NV, inferior wall: Status: Acute Code(s): I21.19 - ST elevation (STEMI) myocardial infarction involving other coronary artery of inferior wall (4) Malignant hypertension: Status: Acute Code(s): I10 - Essential (primary) hypertension (5) Elevated left ventricular end-diastolic pressure: Status: Acute Code(s): R94.30 - Abnormal result of cardiovascular function study, unspecified (6) Former smoker: Status: Inactive Code(s): Z87.891 - Personal history of nicotine dependence (7) Atrial fibrillation with rapid ventricular response: Status: Acute Code(s): I48.91 - Unspecified atrial fibrillation Meds Home Medications and Allergies Home Medications ?Medication ?Instructions ?Recorded ?Confirmed ?Type cholecalciferol (vitamin D3) 10 10 mcg PO DAILY 05/29/24 05/29/24 History mcg (400 unit) capsule (Vitamin D3) levothyroxine 50 mcg tablet 50 mcg PO DAILY 05/29/24 05/29/24 History valsartan 80 mg tablet 80 mg PO DAILY 05/29/24 05/29/24 History amiodarone 200 mg tablet 400 mg (2 x 200 mg) PO BID #60 tabs 05/31/24 Rx aspirin 81 mg tablet,delayed 81 mg PO DAILY #30 tabs 05/31/24 Rx release atorvastatin 40 mg tablet 80 mg (2 x 40 mg) PO HS #30 tabs 05/31/24 Rx metoprolol succinate 50 mg 50 mg PO DAILY #30 tabs 05/31/24 Rx tablet,extended release 24 hr ticagrelor 90 mg tablet (Brilinta) 90 mg PO BID #60 tabs 05/31/24 Rx New Prescriptions to Start Prescriptions: amiodarone Elpidio Quinteros aspirin Elpidio Quinteros atorvastatin Elpidio Quinteros metoprolol succinate Elpidio Quinteros ticagrelor [Brilinta] Elpidio Quinteros Allergies Allergy/AdvReac Type Severity Reaction Status Date / Time No Known Allergies Allergy Verified 07/03/22 11:15 Discharge Plan Disposition Patient Disposition: Home, Self-Care Condition: Fair Discharge Order Discharge Orders: Discharge Order (Routine); Ordered 05/31/24 Ordered By: Elpidio Quinteros Follow up Plan Follow up with: Elpidio Quinteros MD [Primary Care Provider] - 1 month Elpidio Belcher PA [Physician [facility]] - 06/05/24 Prescriptions/Medication Reconciliation: New atorvastatin 40 mg Tablet 80 mg PO HS Qty: 30 0RF amiodarone 200 mg Tablet 400 mg PO BID Qty: 60 0RF aspirin 81 mg Tablet,Delayed Release (Dr/Ec) 81 mg PO DAILY Qty: 30 0RF Brilinta 90 mg Tablet 90 mg PO BID Qty: 60 0RF metoprolol succinate 50 mg tablet extended release 24 hr 50 mg PO DAILY Qty: 30 0RF Continued valsartan 80 mg tablet 80 mg PO DAILY levothyroxine 50 mcg tablet 50 mcg PO DAILY cholecalciferol (vitamin D3) [Vitamin D3] 10 mcg (400 unit) Capsule 10 mcg PO DAILY Problem Reconciliation Problems Reviewed?: Yes Patient Discharge Instructions ACTIVITY: Limited activity DIET: cardiac Patient Instructions: DI for Heart Attack, DI for Cardiac Catheterization, DI for Surgical Site Infection, DI for Coronary Artery Disease Print Language: Polish Providers Primary Care Provider: Elpidio Quinteros Admit Provider: Jorge Ng Attending Provider: Elpidio Quinteros
== END 2024-05-31 12:44 | disposition home or self-care (01) | DRG 322 ==
LOC: ER 21:16 → CATHLAB 21:33 → 2ND 21:54
PROVIDERS: Internal Medicine; Nurse Practitioner Family; Admitting Provider Internal Medicine; Emergency Provider Emergency Medicine; PCP Family Medicine; Visit Provider Family Medicine
PROC: 027035Z Dilation of Coronary Artery, One Artery with Two Drug-eluting Intraluminal Devices, Percutaneous Approach (ICD-10-PCS; principal; 2024-05-29 21:10)
DX: I21.19 ST elevation (STEMI) myocardial infarction involving other coronary artery of inferior wall (principal); I10 Essential (primary) hypertension; Z87.891 Personal history of nicotine dependence; I48.91 Unspecified atrial fibrillation; Z85.038 Personal history of other malignant neoplasm of large intestine; I16.0 Hypertensive urgency; I25.10 Atherosclerotic heart disease of native coronary artery without angina pectoris
CPT/HCPCS: 36415; 71045; 80053; 83735; 84436; 84443; 84479; 84484; 85025; 85347; 92928; 93005; 93306; 93458; 99152; 99285; C1725; C1769; C1874; C9600; J0282; J1200; J1644; J2250; J2270; J2405; J3010; J7060; Q9967

== ENCOUNTER 2024-06-11 08:31 | Outpatient (CLI) | payer MEDICARE, SELFPAY ==
[2024-06-11 09:08] LABS: Basophils # 0.1 K/mm3 (0-0.2); Basophils % 0.7 % (0.1-2.0); Eosinophils # 0.3 K/mm3 (0.0-0.4); Eosinophils % 2.2 % (0.1-12.0); Hematocrit 46.3 % (37.0-47.0); Hemoglobin 14.4 g/dL (12.2-16.2); Lymphocytes # 1.9 K/mm3 (0.7-4.5); Lymphocytes % 16.2 % (10-50); Mean Corpuscular Hemoglobin 29.9 pg (27.0-31.2); Mean Corpuscular Volume 96.4 fl (81-99); Monocytes # 0.6 K/mm3 (0.1-1.0); Monocytes % 5.1 % (1.7-9.3); Neutrophils # 8.9 K/mm3 (1.8-7.8); Neutrophils % 75.8 % (37.0-80.0); Platelet Count 245 K/mm3 (142-424); Red Cell Distribution Width 14.3 % (11.5-17.5); White Blood Count 11.8 K/mm3 (4.8-10.8)
[2024-06-11 10:05] LABS: Chloride 107 mmol/L (98-107); Potassium 4.5 mmoL/L (3.5-5.1); Sodium 141 mmol/L (136-145)
[2024-06-11 10:08] LABS: Anion Gap 9.5 mEq/L (5-15); Blood Urea Nitrogen 13 mg/dl (7-17); Carbon Dioxide 29 mmol/L (22.0-30.0); Estimated Glomerular Filt Rate 48 ml/min (>60); GFR (African American) 58 ML/MIN (>60)
[2024-06-11 10:09] LABS: Calcium 8.6 mg/dl (8.4-10.2); Glucose 106 mg/dl (74-100)
[2024-06-11 14:11] LABS: Occult Blood,Stool Positive (Negative)
== END 2024-06-11 23:59 | disposition home or self-care (01) ==
PROVIDERS: PCP Family Medicine; Visit Provider Physician Assistant
DX: I48.91 Unspecified atrial fibrillation (principal); I21.3 ST elevation (STEMI) myocardial infarction of unspecified site; R19.5 Other fecal abnormalities
CPT/HCPCS: 36415; 80048; 82272; 85025; G0328

== ENCOUNTER 2024-07-01 09:31 | Outpatient (CLI) | payer MEDICARE, SELFPAY ==
[2024-07-01 10:11] LABS: Basophils # 0.1 K/mm3 (0-0.2); Basophils % 0.9 % (0.1-2.0); Eosinophils # 0.4 K/mm3 (0.0-0.4); Eosinophils % 3.7 % (0.1-12.0); Hematocrit 41.5 % (37.0-47.0); Hemoglobin 13.5 g/dL (12.2-16.2); Lymphocytes # 1.3 K/mm3 (0.7-4.5); Lymphocytes % 11.3 % (10-50); Mean Corpuscular HGB Conc 32.4 g/dL (31.8-35.4); Mean Corpuscular Hemoglobin 29.5 pg (27.0-31.2); Mean Corpuscular Volume 90.8 fl (81-99); Mean Platelet Volume 7.9 fl (7.4-10.4); Monocytes # 0.6 K/mm3 (0.1-1.0); Monocytes % 5.4 % (1.7-9.3); Neutrophils # 9.1 K/mm3 (1.8-7.8); Neutrophils % 78.8 % (37.0-80.0); Platelet Count 257 K/mm3 (142-424); Red Blood Count 4.57 M/mm3 (4.20-5.40); Red Cell Distribution Width 14.1 % (11.5-17.5); White Blood Count 11.5 K/mm3 (4.8-10.8)
== END 2024-07-01 23:59 | disposition home or self-care (01) ==
LOC: LAB 09:32
PROVIDERS: PCP Family Medicine; Visit Provider Physician Assistant
DX: D64.9 Anemia, unspecified (principal); I21.3 ST elevation (STEMI) myocardial infarction of unspecified site; R94.30 Abnormal result of cardiovascular function study, unspecified; I25.10 Atherosclerotic heart disease of native coronary artery without angina pectoris
CPT/HCPCS: 36415; 85025

== ENCOUNTER 2024-07-02 11:42 | Outpatient (CLI) | payer MEDICARE, SELFPAY ==
--- NOTE | 2024-07-02 | XR_ITS ---
FINAL REPORT CLINICAL HISTORY: SOA and sharp back pain on left side. Patient had a heart attack 1 month ago and had 3 stints put in COMPARISON: 05/29/2024 FINDINGS: Two views of the chest were obtained. The heart size and pulmonary vascularity are within normal limits. The mediastinum is normal. The lungs are hyperinflated consistent with COPD. No acute pulmonary abnormality is identified. There is no pneumothorax. The bony thorax is intact. IMPRESSION: No active cardiopulmonary disease. COPD. Reviewed, Interpreted and Dictated by Ha Riggs III, MD Transcribed by Rupali Atkinson Authenticated and [facility]
== END 2024-07-02 23:59 | disposition home or self-care (01) ==
LOC: RAD 11:43
PROVIDERS: PCP Family Medicine; Visit Provider Family Medicine
DX: R06.02 Shortness of breath (principal)
CPT/HCPCS: 71046

== ENCOUNTER 2024-09-22 15:01 | Outpatient (CLI) | payer MEDICARE, SELFPAY ==
--- NOTE | 2024-09-22 15:16 | XR_ITS ---
FINAL REPORT CLINICAL HISTORY: ACUTE COUGH/WHEEZE COMPARISON: None FINDINGS: PA and lateral views of the chest are obtained. There is no prior exam for comparison. The cardiac and mediastinal silhouettes are within normal limits. There are bilateral perihilar opacities, slightly asymmetric to the right, favor pneumonia. There is likely underlying emphysema. There is no pleural effusion, pneumothorax, or acute osseous abnormality. IMPRESSION: Bilateral perihilar opacities are present, slightly asymmetric to the right, favor pneumonia. Reviewed, Interpreted and Dictated by Geraldine Faulkner MD Transcribed by Citlaly Paulino Authenticated and [facility]
[2024-09-22 15:37] LABS: Basophils # 0.1 K/mm3 (0-0.2); Basophils % 0.7 % (0.1-2.0); Eosinophils # 0.5 K/mm3 (0.0-0.4); Eosinophils % 2.8 % (0.1-12.0); Hematocrit 31.2 % (37.0-47.0); Hemoglobin 9.3 g/dL (12.2-16.2); Lymphocytes # 2.4 K/mm3 (0.7-4.5); Mean Corpuscular HGB Conc 29.8 g/dL (31.8-35.4); Mean Corpuscular Hemoglobin 23.3 pg (27.0-31.2); Mean Corpuscular Volume 78.2 fl (81-99); Mean Platelet Volume 9.5 fl (7.4-10.4); Monocytes # 1.3 K/mm3 (0.1-1.0); Monocytes % 7.1 % (1.7-9.3); Neutrophils % 75.8 % (37.0-80.0); Platelet Count 291 K/mm3 (142-424); Red Blood Count 3.99 M/mm3 (4.20-5.40); Red Cell Distribution Width 15.2 % (11.5-17.5); White Blood Count 18.4 K/mm3 (4.8-10.8)
[2024-09-22 16:06] LABS: MANUAL DIFFERENTIAL MANUAL DIFFERENTIAL (MANUAL DIFF)
[2024-09-22 21:22] LABS: Eosinophils % 2 % (0-3); Lymphocytes % 20 % (10-50); Monocytes % 1 % (2-9); Neutrophils % 77 % (42-76); RBC Morphology Normal; Total Cells Counted 100
== END 2024-09-22 23:59 | disposition home or self-care (01) ==
LOC: LAB 15:11 → RAD 15:14
PROVIDERS: PCP Family Medicine; Visit Provider Family Medicine
DX: R05.1 Acute cough (principal); R06.2 Wheezing
CPT/HCPCS: 36415; 71046; 85007; 85025; 85027

== ENCOUNTER 2024-10-20 10:10 | Outpatient (CLI) | payer MEDICARE, SELFPAY ==
[2024-10-20 10:51] LABS: Basophils # 0.1 K/mm3 (0-0.2); Basophils % 0.6 % (0.1-2.0); Eosinophils # 0.4 K/mm3 (0.0-0.4); Eosinophils % 3.7 % (0.1-12.0); Hematocrit 37.7 % (37.0-47.0); Hemoglobin 10.7 g/dL (12.2-16.2); Lymphocytes # 1.5 K/mm3 (0.7-4.5); Lymphocytes % 14.4 % (10-50); Mean Corpuscular HGB Conc 28.4 g/dL (31.8-35.4); Mean Corpuscular Hemoglobin 22.7 pg (27.0-31.2); Mean Corpuscular Volume 79.9 fl (81-99); Mean Platelet Volume 9.5 fl (7.4-10.4); Monocytes # 0.7 K/mm3 (0.1-1.0); Monocytes % 7.2 % (1.7-9.3); Neutrophils # 7.5 K/mm3 (1.8-7.8); Neutrophils % 73.8 % (37.0-80.0); Platelet Count 276 K/mm3 (142-424); Red Blood Count 4.72 M/mm3 (4.20-5.40); Red Cell Distribution Width 21.4 % (11.5-17.5); White Blood Count 10.1 K/mm3 (4.8-10.8)
[2024-10-20 11:23] LABS: Alanine Aminotransferase 21 U/L (12-78); Albumin Level 4.1 g/dl (3.5-5.0); Alkaline Phosphatase 111 U/L (38-126); Aspartate Amino Transferase 27 U/L (14-36); Bilirubin,Indirect 0.2 mg/dL (0.0-0.9); Bilirubin,Total 0.2 mg/dl (0.2-1.3); Bilirubin,Unconjugated 0.1 mg/dL (0.0-1.1); Blood Urea Nitrogen 15 mg/dl (7-17); Calcium 9.2 mg/dl (8.4-10.2); Carbon Dioxide 24 mmol/L (22.0-30.0); Chloride 105 mmol/L (98-107); Chol/HDL Ratio 1.7 (1-3.5); Cholesterol 107 mg/dl (140-200); Estimated Glomerular Filt Rate 53 ml/min (>60); GFR (African American) 65 ML/MIN (>60); Glucose 158 mg/dl (74-100); HDL Cholesterol 64 mg/dl (40-60); Sodium 138 mmol/L (136-145); Total Protein,Serum 6.6 g/dl (6.3-8.2); Triglycerides 172 mg/dl (30-150); VLDL Cholesterol 34 mg/dL (0-40)
[2024-10-20 13:03] LABS: Iron 216 ug/dL (37-170)
[2024-10-20 13:18] LABS: Direct LDL Cholesterol < 30.00 mg/dL (100-129)
[2024-10-20 13:29] LABS: Total Iron Binding Capacity 391 ug/dL (265-497)
[2024-10-20 13:45] LABS: Free T4 (Free Thyroxine) 1.66 ng/dl (0.78-2.19)
[2024-10-20 13:48] LABS: Thyroid Stimulating Hormone 1.97 uIU/mL (0.465-4.68)
[2024-10-20 18:06] LABS: Ferritin 16.4 ng/ml (11.1-264)
[2024-10-20 18:20] LABS: Vitamin B12 862 pg/mL (239-931)
[2024-10-20 18:54] LABS: Folate 6.44 ng/mL
== END 2024-10-20 23:59 | disposition home or self-care (01) ==
LOC: LAB 10:11
PROVIDERS: PCP Family Medicine; Visit Provider Physician Assistant
DX: I21.3 ST elevation (STEMI) myocardial infarction of unspecified site (principal); R94.30 Abnormal result of cardiovascular function study, unspecified; I25.10 Atherosclerotic heart disease of native coronary artery without angina pectoris; R19.5 Other fecal abnormalities; Z85.038 Personal history of other malignant neoplasm of large intestine; D64.9 Anemia, unspecified; R79.0 Abnormal level of blood mineral; Z79.899 Other long term (current) drug therapy
CPT/HCPCS: 36415; 80048; 80061; 80076; 82607; 82728; 82746; 83540; 83550; 83735; 84439; 84443; 85025

== ENCOUNTER 2024-11-03 12:58 | Outpatient (CLI) | payer MEDICARE, SELFPAY ==
[2024-11-03 13:26] LABS: Basophils # 0.1 K/mm3 (0-0.2); Eosinophils # 0.2 K/mm3 (0.0-0.4); Eosinophils % 1.2 % (0.1-12.0); Hematocrit 43.4 % (37.0-47.0); Hemoglobin 12.6 g/dL (12.2-16.2); Lymphocytes # 1.9 K/mm3 (0.7-4.5); Lymphocytes % 14.5 % (10-50); Mean Corpuscular Hemoglobin 23.8 pg (27.0-31.2); Mean Platelet Volume 9.9 fl (7.4-10.4); Monocytes # 0.9 K/mm3 (0.1-1.0); Monocytes % 7.2 % (1.7-9.3); Neutrophils # 9.7 K/mm3 (1.8-7.8); Neutrophils % 75.6 % (37.0-80.0); Platelet Count 307 K/mm3 (142-424); Red Blood Count 5.29 M/mm3 (4.20-5.40); Red Cell Distribution Width 22.4 % (11.5-17.5); White Blood Count 12.9 K/mm3 (4.8-10.8)
[2024-11-03 14:10] LABS: Iron 178 ug/dL (37-170)
[2024-11-03 14:20] LABS: Total Iron Binding Capacity 384 ug/dL (265-497)
== END 2024-11-03 23:59 | disposition home or self-care (01) ==
LOC: LAB 12:59
PROVIDERS: PCP Family Medicine; Visit Provider Physician Assistant
DX: R19.5 Other fecal abnormalities (principal); D64.9 Anemia, unspecified
CPT/HCPCS: 36415; 83540; 83550; 85025

== ENCOUNTER 2025-03-25 10:43 | Outpatient (CLI) | payer MEDICARE, SELFPAY ==
--- OUTSIDE RECORDS SUMMARY | 2024-10-02 07:45 | XMS_ITS ---
[facility] Address [address] [place] [phone] Care Team Providers Care Lehr Stripper Name Role Phone Elpidio Quinteros Primary Care Provider Allergies No Known Allergies Results Component Value Reference Range Notes CBC Fingerstick (in house) Reviewed date:10/02/2024 12:37:43 PM Interpretation: Performing Lab: Notes/Report: wbc 16.3 3.5 - 10 lym 13.7% 15 - 50 mid 3.5% 2 - 15 gran 82.8% 35 - 80 rbc 4.71 3.5 - 5.5 hgb 10.7 11.5 - 16.5 hct 34.6 35 - 55 mcv 73.5 75 - 100 mch 22.8 25 - 35 mchc 31.1 31 - 38 plat 366 100 - 400 REASON FOR VISIT 1 week f/u Medications Medication SIG (Take, Route, Frequency, Duration) Notes Start Date End Date Status Albuterol Sulfate HFA 108 (90 Base) MCG/ACT 1 or 2 puffs as needed Inhalation every 4 hrs 09/22/2024 Active Ferrous Sulfate 325 (65 Fe) MG 1 tablet Orally once daily 10/02/2024 Active Levothyroxine Sodium 50 MCG 1 tablet in the morning on an empty stomach Orally Once a day; Duration: 30 day(s) Active Vitamin B12 1000 MCG 1 tablet Orally Onc e a day; Duration: 30 day(s) Active Vitamin D (Ergocalciferol) 28792 UNIT 1 capsule Orally; Duration: 30 day(s) Active Atorvastatin Calcium 40 MG 1 tablet Oral ly Once a day Active Gabapentin 300 MG 1 cap(s) orally 2 ti mes a day 07/11/2022 Active Brilinta 90 MG 1 tablet Orally Twic e a day Active Valsartan 320 MG 1 tablet Orally Once a day Active Aspirin Low Dose 81 mg TAKE ONE TABLET B Y MOUTH EVERY DAY; Duration: 30 Active Metoprolol Succinate ER 50 MG 1 tablet Orally Once a day Active Problems Problem Type SNOMED Code ICD Code Onset Dates Problem Status W/U Status Risk Notes Problem Anemia (639756900) Anemia, unspecified type (D64.9) Active confirmed Vital Signs Blood pressure systolic 130 mm Hg 10/02/19 25 Blood pressure diastolic 74 mm Hg 025 Heart Rate 75 /min 10/02/2024 Height 65 in 10/02/2024 Weight 172.4 lbs 10/02/2024 BMI 28.69 kg/m2 10/02/2024 Encounters Encounter Location Date Provider Diagnosis [facility] [address] [facility] [address] [place] [id number] 10/02/2024 Elpidio Quinteros Community acquired pneumonia, unspecified laterality J18.9 and Anemia, unspecified type D64.9 Assessments Encounter Date Diagnosis (ICD Code) Assessment Notes Treatment Notes Treatment Clinical Notes Section Notes 10/02/2024 Community acquired pneumonia, unspecified laterality (ICD-10 - J18.9) Clinically resolved 10/02/2024 Anemia, unspecified type (ICD-10 - D64.9) H/H has improved, plan to recheck in 3 or 4 weeks Plan Of Treatment Medication Medication Name Sig Start Date Stop Date Notes Ferrous Sulfate 325 (65 Fe) MG 1 tablet Orally once daily 10/02/2024 Treatment Notes Assessment Notes Community acquired pneumonia , unspecified laterality Clinically resolved Anemia, unspecified type H/H has improve d, plan to recheck in 3 or 4 weeks Next Appt Details Follow Up: 3 or 4 Weeks, [place] son: Provider Name:Elpidio Rogers ry, 07/22/2025 09:30:00 AM, [address] [facility], [address], [place], [phone], Progress Notes * Chanda SHARMA:1945 (80 yo F)Acc No.[id number]:10/02/2024 Progress Notes Patient: Lucina VELASCO Provider: Marta Quinteros M.D. :1945 A ge:79 Y S ex:Female Date:10/02/2024 Address:[place] , [id number] Subjective: * Chief Complaints: * 1 . 1 week f/u. * HPI: E NT/respiratory: 79 year old female presents with c/o cough P t here for to f/u on pneumonia. Pt has completed abx and steroid. Pt states she is feeling better and does not have any concerns today. * ROS: D ERMATOLOGY: no R gilberto. n o H radha. G ASTROENTEROLOGY: no N ausea. n o V omiting. U ROLOGY: no D ifficulty urinating. n o B lood in urine. * Medical History: 4 5 Year Smoking Hx, Quit Smoking in 2013, Colon Cancer, 2018, Coronary Artery Disease, Myocardial Infarction, Hypertension, Vitamin D deficiency, Vitamin B 12 deficiency. * Surgical History: C holecystectomy , Kidney Stone Removal , Colonoscopy, Dr. 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 * Hospitalization/Major Diagno stic Procedure: C olon Cancer- [facility] 06/14-. * Family History: F ather: alive 82 yrs, CABG age 72. M other: 62 yrs, of [place], first [place] age 52.?Paternal Grand Father: . P aternal Grand Mother: . M aternal Grand Father: . M aternal Grand Mother: . S iblings: 1 sister had breast CA. 1 brother(s) , 2 sister(s) . 2 son(s) - healthy. . * Social History: C URRENT TOBACCO USE S moking Status: Patient does smoke, number of cigarettes per day: 1, Since age of: 18. C affeine: yes, frequency:daily. Exercise: yes, walk. Home smoke detector use: yes. Marital Status: . New since last visit: none. Occupation: retired. Past smoking status: yes, PPD1pk. qd: , years: 44 ,determination:. Occup. exposure: none. Recreational drug use: no. Alcohol: no. Sexually active: yes. Travel ouside [place]: no. * Medications: T aking Gabapentin 300 MG Capsule 1 cap(s) orally 2 times a day , Taking Aspirin Low Dose 81 mg Tablet Delayed Release TAKE ONE TABLET BY MOUTH EVERY DAY , Taking Valsartan 320 MG Tablet 1 tablet Orally Once a day , Taking Brilinta 90 MG Tablet 1 tablet Orally Twice a day , Taking Metoprolol Succinate ER 50 MG Tablet Extended Release 24 Hour 1 tablet Orally Once a day , Taking Atorvastatin Calcium 40 MG Tablet 1 tablet Orally Once a day , Taking Vitamin D (Ergocalciferol) 62332 UNIT Capsule 1 capsule Orally , Taking Vitamin B12 1000 MCG Tablet Extended Release 1 tablet Orally Once a day , Taking Levothyroxine Sodium 50 MCG Tablet 1 tablet in the morning on an empty stomach Orally Once a day , Taking Albuterol Sulfate HFA 108 (90 Base) MCG/ACT Aerosol Solution 1 or 2 puffs as needed Inhalation every 4 hrs , Discontinued dexAMETHasone 2 MG Tablet 1 tablet Orally every 12 hrs , Discontinued Promethazine-DM 6.25-15 MG/5ML Syrup 5 ml as needed Orally every 6 hrs , Discontinued Zithromax Z-Prince 250 MG Tablet as directed Orally once daily , Discontinued Cefdinir 300 MG Capsule 1 cap(s) Orally Two times a day , Medication List reviewed and reconciled with the patient * Allergies: N .K.D.A. Objective: * Vitals: W t:172.4, Temp:98.0, BP:130/74, HR:75, O2 Sat:99% on RA, Nurse:michael, Ht: 65, BMI:28.69. * Examination: E NT/Respiratory: General Appearance: N AD. H eart : R RR, normal S1 S2. L ungs: c lear to auscultation bilaterally. Assessment: * Assessment: 1. C ommunity acquired pneumonia, unspecified laterality - J18.9 (Primary) 2 .?Anemia, unspecified type - D64.9 Plan: * Treatment: Value Reference Range w bc 16.3 3.5 - 10 * l ym 13.7% 15 - 50 * m id 3.5% 2 - 15 * g ran 82.8% 35 - 80 * r bc 4.71 3.5 - 5.5 * h gb 10.7 11.5 - 16.5 * h ct 34.6 35 - 55 * m cv 73.5 75 - 100 * m ch 22.8 25 - 35 * m chc 31.1 31 - 38 * p lat 366 100 - 400 * Robyn Saul 10/02/2024 12:12:43 PM > , Provider reviewed results while patient in office. Notes: Clinically resolved??2.?Anemia, unspecified type? Start Ferrous Sulfate Tablet Delayed Release, 325 (65 Fe) MG, 1 tablet, Orally, once daily.? Notes: H/H has improved, plan to recheck in 3 or 4 weeks?? * Procedure Codes: 9 [address] [place], [address] CAPILLARY BLOOD DRAW, 74114 CBC WITH AUTO DIFF * Follow Up: 3 or 4 Weeks * Images: Billing Information: * Visit Code: 65553 Office Visit, Est Pt., Level 3. * Procedure Codes: [address] [place]. [address] CAPILLARY BLOOD DRAW. 80398 CBC WITH AUTO DIFF. * Electronic signature of Lindsay Quinteros MD on 03/25/2025 at 10:47 AM EDT Sign off status: Pending * Provider: Marta Quinteros M.D. Date: 0 10/02/2024 Generated for Romero aguilera/Cuca/eTransmitting on: 0 03/25/2025 10:47 AM EDT History and Physical Notes * HPI (History of Present Illness) Category Sub-Category Detail Notes Category Not es ENT/respiratory cough Pt here for to f /u on pneumonia. Pt has completed abx and steroid. Pt states she is feeling better and does not have any concerns today Examination Category Sub-Category Detail Notes Category Not es ENT/Respiratory Heart : RRR, normal S1 S2 Lungs: clear to auscultatio n bilaterally General Appearance: NAD
--- OUTSIDE RECORDS SUMMARY | 2024-10-23 07:30 | XMS_ITS ---
Author Organization [facility] Address [address] [facility] [address] [place] [phone] Care Team Providers Care Nut Grinder Name Role Phone Elpidio Quinteros Primary Care Provider Allergies No Known Allergies REASON FOR VISIT 3 weeks Medications Medication SIG (Take, Route, Frequency, Duration) Notes Start Date End Date Status Valsartan 320 MG 1 tablet Orally Once a day Active Vitamin D3 50 MCG (1999 UT) 1 capsule Or ally Once a day 10/23/2024 Active Brilinta 90 MG 1 tablet Orally Twic e a day Active Gabapentin 300 MG 1 cap(s) orally 2 ti mes a day 07/11/2022 Active Aspirin Low Dose 81 mg TAKE ONE TABLET B Y MOUTH EVERY DAY; Duration: 30 Active Albuterol Sulfate HFA 108 (90 Base) MCG/ACT 1 or 2 puffs as needed Inhalation every 4 hrs 09/22/2024 Active Ferrous Sulfate 325 (65 Fe) MG 1 tablet Orally once daily 10/02/2024 Active Vitamin B12 1000 MCG 1 tablet Orally Onc e a day; Duration: 30 day(s) Active Levothyroxine Sodium 50 MCG 1 tablet in the morning on an empty stomach Orally Once a day; Duration: 30 day(s) Active Metoprolol Succinate ER 50 MG 1 tablet Orally Once a day Active Atorvastatin Calcium 40 MG 1 tablet Oral ly Once a day Active Vital Signs Blood pressure systolic 132 mm Hg 10/23/19 25 Blood pressure diastolic 70 mm Hg 025 Heart Rate 68 /min 10/23/2024 Height 65 in 10/23/2024 Weight 171.8 lbs 10/23/2024 BMI 28.59 kg/m2 10/23/2024 Encounters Encounter Location Date Provider Diagnosis [facility] [facility] [address] [place], [place] [phone] 10/23/2024 Elpidio Quinteros Anemia, unspecified type D64.9 and Vitamin D deficiency E55.9 Assessments Encounter Date Diagnosis (ICD Code) Assessment Notes Treatment Notes Treatment Clinical Notes Section Notes 10/23/2024 Anemia, unspecified type (ICD-10 - D64.9) CBC results reviewed, [facility] is going to recheck CBC in 2 weeks. She has seen [address] Arroyo and her prefers to defer colonoscopy if possible 10/23/2024 Vitamin D deficiency (ICD-10 - E55.9) Plan Of Treatment Medication Medication Name Sig Start Date Stop Date Notes Vitamin D3 50 MCG (1999 UT) 1 capsule Orally Once a day Vitamin D (Ergocalciferol) 08020 UNIT 1 capsule Orally Ferrous Sulfate 325 (65 Fe) MG 1 tablet Orally once daily 10/02/2024 Treatment Notes Assessment Notes Anemia, unspecified type CBC results rev iewed, [facility] is going to recheck CBC in 2 weeks. She has seen Dr[address] Arroyo and her prefers to defer colonoscopy if possible Next Appt Details Follow Up: 3 Months, Reason: Provider Name:Elpidio Rogers ry, 07/22/2025 09:30:00 AM, [address] [facility], [address], [place], [phone], Progress Notes * Lucina SHARMADOB:1945 (80 yo F)Acc No.[id number]:10/23/2024 Progress Notes Patient: Lucina VELASCO Provider: Marta Quinteros M.D. :1945 A ge:79 Y S ex:Female Date:10/23/2024 Address:[facility] [place] , [id number] Subjective: * Chief Complaints: * 1 . 3 weeks. * HPI: H PI: 79 year old female presents with c/o Here for follow up on:?Pt here for 3 week f/u on low hgb. Pt states that she did see Cardiology on Sunday and had blood drawn, see printed doc. Pt states she has been taking OTC iron. * ROS: D ERMATOLOGY: no R gilberto. n o H radha. G ASTROENTEROLOGY: no N ausea. n o V omiting. n o D iarrhea.? U ROLOGY: no D ifficulty urinating. n o B lood in urine. * Medical History: 4 5 Year Smoking Hx, Quit Smoking in 2013, Colon Cancer, 2018, Coronary Artery Disease, Myocardial Infarction, Hypertension, Vitamin D deficiency, Vitamin B 12 deficiency, Atrial fibrillation. * Surgical History: C holecystectomy , Kidney Stone Removal , Colonoscopy, Dr. 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 * Hospitalization/Major Diagno stic Procedure: C olon Cancer- [facility] 06/14-. * Family History: F ather: alive 82 yrs, CABG age 72. M other: 62 yrs, of [place], first [place] age 52.?Paternal Grand Father: . P aternal [...] a day , Taking Vitamin D (Ergocalciferol) 71097 UNIT Capsule 1 capsule Orally , Taking Vitamin B12 1000 MCG Tablet Extended Release 1 tablet Orally Once a day , Taking Levothyroxine Sodium 50 MCG Tablet 1 tablet in the morning on an empty stomach Orally Once a day , Taking Albuterol Sulfate HFA 108 (90 Base) MCG/ACT Aerosol Solution 1 or 2 puffs as needed Inhalation every 4 hrs , Taking Ferrous Sulfate 325 (65 Fe) MG Tablet Delayed Release 1 tablet Orally once daily , Medication List reviewed and reconciled with the patient * Allergies: N .K.D.A. Objective: * Vitals: W t:171.8, Temp:97.8, BP:132/70, HR:68, Nurse:michael, Ht: 65, BMI:28.59. * Examination: G eneral Examination: General Appearance: N AD. H eart: R SR. L ungs:?clear to auscultation. Assessment: * Assessment: 1. A nemia, unspecified type - D64.9 (Primary) 2 . V itamin D deficiency - E55.9 Plan: * Treatment: 2. V itamin D deficiency Stop Vitamin D (Ergocalciferol) Capsule, 67608 UNIT, 1 capsule, Orally; S tart Vitamin D3 Capsule, 50 MCG (2000 UT), 1 capsule, Orally, Once a day. * Procedure Codes: G 2211 Complex e/m visit add on * Follow Up: 3 Months * Images: Billing Information: * Visit Code: 80402 Office Visit, Est Pt., Level 3. * Procedure Codes: G2211 Complex e/m visit add on. * Electronic signature of Lindsay Quinteros MD on 03/25/2025 at 10:47 AM EDT Sign off status: Pending * Provider: Marta Quinteros M.D. Date: 0 10/23/2024 Generated for Romero aguilera/Cuca/Vanessaitting on: 03/25/2025 10:47 AM EDT History and Physical Notes * HPI (History of Present Illness) Category Sub-Category Detail Notes Category Not es HPI Here for follow up on: Pt here f or 3 week f/u on low hgb. Pt states that she did see Cardiology on Sunday and had blood drawn, see printed doc. Pt states she has been taking OTC iron Examination Category Sub-Category Detail Notes Category Not es General Examination Heart: RSR Lungs: clear to auscultatio n General Appearance: NAD
--- OUTSIDE RECORDS SUMMARY | 2025-01-21 06:15 | XMS_ITS ---
Author Organization [facility] Address [address] [place] [id number] Care Team Providers Care Psychological Assistant Name Role Phone Joaquim Quinterosian Primary Care Provider [phone] Allergies No Known Allergies Results Component Value Reference Range Notes CBC Venipuncture (in house) Reviewed date:2025 12:29:31 PM Interpretation: Performing Lab: Notes/Report: wbc 12.1 3.5 - 10 lymph 12.3% 15 - 50 mid 3.2% 2 - 15 gran 84.5% 35 - 80 rbc 5.14 3.5 - 5.5 hgb 14.0 11.5 - 16.5 hct 44.8 35 - 55 mcv 87.1 75 - 100 mch 27.3 25 - 35 mchc 31.4 31 - 38 platlet 239 100 - 400 P-Vitamin B12 Reviewed date:01/22/2025 02:56:35 PM Interpretation: Performing Lab: Notes/Report: Test performed by [employer] [address] [place] [address] [place] [address] Jose Bradley MD, Keno Manager CLIA: [id number] Vitamin B12 4913 240-9296 pg/mL P-Comprehensive Metabolic Pa nahomy (CMP) Reviewed date:01/22/2025 02:56:35 PM Interpretation: Performing Lab: Notes/Report: Test performed by [employer] [address] [place] [address] , [address], [place] [address] Jose Bradley MD, Keno Manager CLIA: [id number] Sodium 140 135-145 mmol/L Potassium 4.2 3.5-5.3 mmol/L Chloride 103 97-108 mmol/L CO2 24 22-32 mmol/L Glucose 89 65-99 mg/dL BUN 12 8-23 mg/dL Creatinine 1.00 0.50-1.00 mg/dL Calcium 9.4 8.6-10.4 mg/dL eGFR by Creatinine 57 >59 mL/min/1.73m2 Protein 7.2 6.0-8.3 g/dL Albumin 4.6 3.5-5.3 g/dL Alkaline Phosphatase 132 35-121 IU/L ALT (SGPT) 16 <5-47 IU/L AST (SGOT) 18 <5-40 IU/L Bilirubin, Total 0.3 <0.2-1.2 mg/dL A/G Ratio 1.8 1.1-2.5 P-T4 Free (thyroxine) Reviewed date:01/22/2025 02:56:35 PM Interpretation: Performing Lab: Notes/Report: Test performed by [facility] [facility] [address] [place] [address] , [address], [place] [address] Jose Bradley MD, Keno Manager CLIA: [id number] Thyroxine Free (free T4) 1.41 0.86-1.76 ng/dL P-Lipid Panel Reviewed date:01/22/2025 02:56:35 PM Interpretation: Performing Lab: Notes/Report: Test performed by [facility] [address] [place] [address] , [place] [address] Jose Bradley MD, Keno Manager CLIA: [id number] Cholesterol 107 <200 mg/dL Triglycerides 152 <150 mg/dL HDL Cholesterol 55 >39 mg/dL Cholesterol / HDL Ratio 1.95 0.00-4.44 Ratio Non-HDL Cholesterol 52 <130 mg/dL LDL Cholesterol (Calculation) 22 <130 mg/dL LDL Cholesterol Levels* Less than 100 mg/dL Optimal 100 to 129 mg/dL Near Optimal/ Above Optimal 130 to 159 mg/dL Borderline High 160 to 189 mg/dL High 190 mg/dL and above Very High * Categories as recommended by the 2004 ATPIII guidelines LDL/HDL Ratio 0.4 <3.3 Ratio LDL Cholesterol Patient History Test Date: 2025 LDL Results: 22 Units: mg/dL % Change: - P-TSH Reviewed date:01/22/2025 02:56:35 PM Interpretation: Performing Lab: Notes/Report: Test performed by [employer] , [place] [address] Jose Bradley MD, Keno Manager CLIA: [id number] TSH 2.28 0.43-5.25 mU/L P-Microalbumin/Creatinine, R andom Urine Sample Reviewed date:01/22/2025 02:56:35 PM Interpretation: Performing Lab: Notes/Report: Test performed by [facility] [address] [place] [address] Jose Bradley MD, Keno Manager CLIA: [id number] Albumin/Creatinine Ratio, Urine 5 0-30 ug/m g Microalbumin, Urine, Random 0.3 Creatinine, Urine 63.4 P-Vitamin D 25-Hydroxy Reviewed date:01/22/2025 02:56:35 PM Interpretation: Performing Lab: Notes/Report: Test performed by [employer] [address] , [place] [address] Jose Bradley MD, Keno Manager CLIA: [id number] Vitamin D 25-Hydroxy 50.0 30.0-100.0 ng/mL Interpretation of Vitamin D 25 OH: < 20 ng/mL - Deficiency 20 - 29 ng/mL - Insufficiency 30 - 100 ng/mL - Sufficiency > 100 ng/mL - Super-therapeutic- toxicity may occur above this level. Clinical correlation required. REASON FOR VISIT 3 month Medications Medication SIG (Take, Route, Frequency, Duration) Notes Start Date End Date Status Zithromax Z-Prince 250 MG as directed Orall y once daily; Duration: 5 days 2025 Active Vitamin B12 1000 MCG 1 tablet Orally Onc e a day; Duration: 30 day(s) Active Ferrous Sulfate 325 (65 Fe) MG 1 tablet Orally once daily 10/02/2024 Active Albuterol Sulfate HFA 108 (90 Base) MCG/ACT 1 or 2 puffs as needed Inhalation every 4 hrs 09/22/2024 Active Vitamin D3 50 MCG (2000 UT) 1 capsule Or ally Once a day 10/23/2024 Active Metoprolol Succinate ER 50 MG 1 tablet Orally Once a day Active Brilinta 90 MG 1 tablet Orally Twic e a day Active Atorvastatin Calcium 40 MG 1 tablet Oral ly Once a day Active Levothyroxine Sodium 50 MCG 1 tablet in the morning on an empty stomach Orally Once a day; Duration: 90 days Active Valsartan 320 MG 1 tablet Orally Once a day Active Gabapentin 300 MG 1 cap(s) orally 2 ti mes a day 07/11/2022 Active Aspirin Low Dose 81 mg TAKE ONE TABLET B Y MOUTH EVERY DAY; Duration: 30 Active Vital Signs Blood pressure systolic 130 mm Hg 01/22/20 25 Blood pressure diastolic 70 mm Hg 025 Heart Rate 64 /min 2025 Height 65 in 2025 Weight 175 lbs 2025 BMI 29.12 kg/m2 2025 Encounters Encounter Location Date Provider Diagnosis [facility] [address] [facility] [address] [place], [place] [id number] 2025 Elpidio Quinteros Essential (primary) hypertension I10 ; Acquired hypothyroidism E03.9 ; Anemia, unspecified type D64.9 ; Vitamin D deficiency E55.9 ; 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.8 ; Upper respiratory tract infection, unspecified type J06.9 ; CAD in nikolai artery I25.10 ; Atrial fibrillation with RVR I48.91 and BMI 29.0-29.9,adult Z68.29 Assessments Encounter Date Diagnosis (ICD Code) Assessment Notes Treatment Notes Treatment Clinical Notes Section Notes 2025 Essential (primary) hypertension (ICD-10 - I10) 2025 Acquired hypothyroidism (ICD-10 - E03.9) 2025 Anemia, unspecified type (ICD-10 - D64.9) 2025 Vitamin D deficiency (ICD-10 - E55.9) 2025 Vitamin B 12 deficiency (ICD-10 - E53.8) 2025 Upper respiratory tract infection, unspecified type (ICD-10 - J06.9) 2025 CAD in nikolai artery (ICD-10 - I25.10) 2025 Atrial fibrillation with RVR (ICD-10 - I48.91) 2025 BMI 29.0-29.9,adult (ICD-10 - Z68.29) Plan Of Treatment Medication Medication Name Sig Start Date Stop Date Notes Zithromax Z-Prince 250 MG as directed Orall y once daily; Duration: 5 days 2025 Levothyroxine Sodium 50 MCG 1 tablet in the morning on an empty stomach Orally Once a day; Duration: 90 days Next Appt Details Follow Up: 6 Months, Reason: Provider Name:Elpidio Rogers ry, 07/22/2025 09:30:00 AM, [address], [address] , [place], [place], [id number], Progress Notes * LEMUEL LucinaDOB:1945 (80 yo F)Acc No.[id number]:2025 Progress Notes Patient: Lucina VELASCO Provider: Marta Quinteros M.D. :1945 A ge:80 Y S ex:Female Date:2025 Address:[address] [place], [place] [address]Katie DENISERichy wypretty [id number] Subjective: * Chief Complaints: * 1 . 3 month. * HPI: C ardiology: 80 year old female presents with c/o Blood Pressure Elevated?Pt here for 3 mo f/u on hypertension. E NT/respiratory: c/o nasal congestion P t complains of nasal congestion that started on Saturday. Associated with scratchy throat and sneezing . * ROS: D ERMATOLOGY: no R gilberto. [...] Hospitalization/Major Diagno stic Procedure: C olon Cancer- [facility] 06/14-. * Family History: F ather: alive 82 yrs, CABG age 72. M other: 62 yrs, of [place], first [place] age 52.?Paternal Grand Father: . P aternal [...] Orally Once a day , Taking Vitamin B12 1000 MCG Tablet [...] Release 1 tablet Orally once daily , Taking Vitamin D3 50 MCG (2000 UT) Capsule 1 capsule Orally Once a day , Medication List reviewed and reconciled with the patient * Allergies: N .K.D.A. Objective: * Vitals: W t: 175, Temp: 98.0, BP: 130/70, HR: 64, Nurse: michael, Ht: 65, BMI:29.12. * Examination: E NT/Respiratory: General Appearance: N AD. O ral cavity : e rythema without exudate on pharynx. H eart : R RR, normal S1 S2. L ungs: c lear to auscultation bilaterally. E xtremities : n o edema. Assessment: * Assessment: 1. E ssential (primary) hypertension - I10 2 . A cquired hypothyroidism - E03.9 3 . A nemia, unspecified type - D64.9 4 . V itamin D deficiency - E55.9 5 . V itamin B 12 deficiency - E53.8 6 . U pper respiratory tract infection, unspecified type - J06.9 7 . C AD in nikolai artery - I25.10 8 . A trial fibrillation with RVR - I48.91 9 .?BMI 29.0-29.9,adult - Z68.29 Plan: * Treatment: Value Reference Range A /G Ratio 1.8 1.1-2.5 - * A lbumin 4.6 3.5-5.3 - g/dL * A lkaline Phosphatase 132 H 35-121 - IU/L * A LT (SGPT) 16 <5-47 - IU/L * A ST (SGOT) 18 <5-40 - IU/L * B ilirubin, Total 0.3 <0.2-1.2 - mg/dL * B UN 12 8-23 - mg/dL * C alcium 9.4 8.6-10.4 - mg/dL * C hloride 103 97-108 - mmol/L * C O2 24 22-32 - mmol/L * C reatinine 1.00 0.50-1.00 - mg/dL * G lucose 89 65-99 - mg/dL * P otassium 4.2 3.5-5.3 - mmol/L * S odium 140 135-145 - mmol/L * P rotein 7.2 6.0-8.3 - g/dL * e GFR by Creatinine 57 L >59 - mL/min/1.73m2 * Elpidio Quinteros 01/22/2025 1 0:06:31 AM > Lab results are satisfactory, sent to to inform. Erendira Herrera 01/22/2025 02:46:30 PM > left message for return call Erendira Herrera 01/22/2025 02:56:22 PM > pt informed of results ?LAB: P-Lipid Panel (Collection Date & Time - 2025 10:59 AM)* Value Reference Range C holesterol / HDL Ratio 1.95 0.00-4.44 - Ratio * C holesterol 107 <200 - mg/dL * H DL Cholesterol 55 >39 - mg/dL * L DL Cholesterol (Calculation) 22 <130 - mg/d L * L DL/HDL Ratio 0.4 <3.3 - Ratio * N on-HDL Cholesterol 52 <130 - mg/dL * T riglycerides 152 H <150 - mg/dL * Elpidio Quinteros 01/22/2025 1 0:06:31 AM > Lab results are satisfactory, sent to to inform. Erendira Herrera 01/22/2025 02:46:30 PM > left message for return call Erendira Herrera 01/22/2025 02:56:22 PM > pt informed of results ?LAB: P-Microalbumin/Creatinine, Random Urine Sample (Collection Date & Time - 2025 10:59 AM)* Value Reference Range A lbumin/Creatinine Ratio, Urine 5 0-30 - ug /mg * C reatinine, Urine 63.4 - mg/dL * M icroalbumin, Urine, Random 0.3 - mg/dL * Elpidio Quinteros T 01/22/2025 1 0:06:31 AM > Lab results are satisfactory, sent to to inform. Erendira Herrera 01/22/2025 02:46:30 PM > left message for return call Erendira Herrera 01/22/2025 02:56:22 PM > pt informed of results 2.?Acquired hypothyroidism? Refill Levothyroxine Sodium Tablet, 50 MCG, 1 tablet in the morning on an empty stomach, Orally, Once a day, 90 days, 90, Refills 1.?LAB: P-T4 Free (thyroxine) (Collection Date & Time - 2025 10:59 AM)* Value Reference Range T hyroxine Free (free T4) 1.41 0.86-1.76 - ng/d L * Elpidio Quinteros T 01/22/2025 1 0:06:31 AM > Lab results are satisfactory, sent to to inform. Erendira Herrera 01/22/2025 02:46:30 PM > left message for return call Erendira Herrera 01/22/2025 02:56:22 PM > pt informed of results ?LAB: P-TSH (Collection Date & Time - 2025 10:59 AM)* Value Reference Range T SH 2.28 0.43-5.25 - mU/L * Elpidio Quinteros T 01/22/2025 1 0:06:31 AM > Lab results are satisfactory, sent to to inform. Erendira Herrera 01/22/2025 02:46:30 PM > left message for return call Erendira Herrera 01/22/2025 02:56:22 PM > pt informed of results 3.?Vitamin D deficiency?LAB: P-Vitamin D 25-Hydroxy (Collection Date & Time - 2025 10:59 AM) * Value Reference Range V itamin D 25-Hydroxy 50.0 30.0-100.0 - ng/mL * Elpidio Quinteros T 01/22/2025 1 0:06:31 AM > Lab results are satisfactory, sent to to inform. Erendira Herrera 01/22/2025 02:46:30 PM > left message for return call Erendira Herrera 01/22/2025 02:56:22 PM > pt informed of results 4.?Vitamin B 12 deficiency?LAB: P-Vitamin B12 (Collection Date & Time - 2025 10:59 AM)* Value Reference Range V itamin B12 7665 082-5452 - pg/mL * Elpidio Quinteros 01/22/2025 1 0:06:31 AM > Lab results are satisfactory, sent to to inform. JavierErendira 01/22/2025 02:46:30 PM > left message for return call JavierErendira 01/22/2025 02:56:22 PM > pt informed of results 5.?Upper respiratory tract infection, unspecified type? Start Zithromax Z-Prince Tablet, 250 MG, as directed, Orally, once daily, 5 days, 6 tabs, Refills 0. ?LAB: CBC Venipuncture (in house) (Collection Date & Time - 2025)* Value Reference Range w bc 12.1 3.5 - 10 * l ymph 12.3% 15 - 50 * m id 3.2% 2 - 15 * g ran 84.5% 35 - 80 * r bc 5.14 3.5 - 5.5 * h gb 14.0 11.5 - 16.5 * h ct 44.8 35 - 55 * m cv 87.1 75 - 100 * m ch 27.3 25 - 35 * m chc 31.4 31 - 38 * p latlet 239 100 - 400 * Rebecca Lee 2025 11 :41:28 AM > Provider reviewed results while patient in office. 6.?CAD in nikolai artery?LAB: P-Comprehensive Metabolic Panel (CMP) (Collection Date & Time - 2025 10:59 AM)* Value Reference Range A /G Ratio 1.8 1.1-2.5 - * A lbumin 4.6 3.5-5.3 - g/dL * A lkaline Phosphatase 132 H 35-121 - IU/L * A LT (SGPT) 16 <5-47 - IU/L * A ST (SGOT) 18 <5-40 - IU/L * B ilirubin, Total 0.3 <0.2-1.2 - mg/dL * B UN 12 8-23 - mg/dL * C alcium 9.4 8.6-10.4 - mg/dL * C hloride 103 97-108 - mmol/L * C O2 24 22-32 - mmol/L * C reatinine 1.00 0.50-1.00 - mg/dL * G lucose 89 65-99 - mg/dL * P otassium 4.2 3.5-5.3 - mmol/L * S odium 140 135-145 - mmol/L * P rotein 7.2 6.0-8.3 - g/dL * e GFR by Creatinine 57 L >59 - mL/min/1.73m2 * Elpidio Quinteros T 01/22/2025 1 0:06:31 AM > Lab results are satisfactory, sent to to inform. Erendira Herrera 01/22/2025 02:46:30 PM > left message for return call Erendira Herrera 01/22/2025 02:56:22 PM > pt informed of results ?LAB: P-Lipid Panel (Collection Date & Time - 2025 10:59 AM)* Value Reference Range C holesterol / HDL Ratio 1.95 0.00-4.44 - Ratio * C holesterol 107 <200 - mg/dL * H DL Cholesterol 55 >39 - mg/dL * L DL Cholesterol (Calculation) 22 <130 - mg/d L * L DL/HDL Ratio 0.4 <3.3 - Ratio * N on-HDL Cholesterol 52 <130 - mg/dL * T riglycerides 152 H <150 - mg/dL * Elpidio Quinteros T 01/22/2025 1 0:06:31 AM > Lab results are satisfactory, sent to to inform. Erendira Herrera 01/22/2025 02:46:30 PM > left message for return call Erendira Herrera 01/22/2025 02:56:22 PM > pt informed of results * Procedure Codes: G 2211 Complex e/[place] [address] CBC WITH AUTO DIFF, 3075F SYST BP GE 130 - 139MM HG, 3078F DIAST BP < 80 MM HG * Follow Up: 6 Months * Images: Billing Information: * Visit Code: 87714 Office Visit, Est Pt., Level 4. * Procedure Codes: G2211 Complex e/[place] [address] CBC WITH AUTO DIFF. 3075F SYST BP GE 130 - 139MM HG. 3078F DIAST BP < 80 MM HG. * Electronic signature of Lindsay Quinteros MD on 03/25/2025 at 10:47 AM EDT Sign off status: Pending * Provider: Marta Quinteros M.D. Date: 0 2025 Generated for Romero aguilera/Cuca/eTransmitting on: 0 03/25/2025 10:47 AM EDT History and Physical Notes * HPI (History of Present Illness) Category Sub-Category Detail Notes Category Not es ENT/respiratory nasal congestion Pt complains of nasal congestion that started on Sunday. Associated with scratchy throat and sneezing Cardiology Blood Pressure Elevated Pt here for 3 mo f/u on hypertension Examination Category Sub-Category Detail Notes Category Not es ENT/Respiratory Oral cavity : erythema without exudate on pharynx Heart : RRR, normal S1 S2 Lungs: clear to auscultatio n bilaterally Extremities : no edema General Appearance: NAD
--- OUTSIDE RECORDS SUMMARY | 2025-01-29 11:48 | XMS_ITS | Continuity of Care Document ---
Author Organization [facility] Address [address] [place] [address] Phone Care Team Providers Care Upholstery Bundler Name Role Phone Austin MSN, NURSERY WORKER, Machelle Unavailable Unavai lable Allergies, Adverse Reactions, Alerts Substance Reaction Status Criticality No Known Allergies Active No Inform ation Medications Medication Instructions Dosage Effective Dates (start - stop) Status Comments LEVOTHYROXINE SODIUM 50MCG TABLET TAKE ONE (1) TABLET BY ORAL ROUTE EVERY DAY - Active VITAMIN B-12 1000MCG TABLET TAKE ONE TABLET DAILY - Active NATURAL VITAMIN D-3 5000UNIT TABLET TAKE ONE (1) TABLET BY ORAL ROUTE EVERY DAY - Active atorvastatin 80 mg tablet take 1 tablet by oral route every day 80 MG - Active Brilinta 90 mg tablet take 1 tablet by o ral route 2 times every day 90 MG - Active metoprolol succinate ER 50 mg tablet,extended release 24 hr take 1 tablet by oral route every day 50 MG - Active aspirin 81 mg tablet,delayed release take 1 tablet by oral route every day 81 MG - Active valsartan 320 mg tablet take 1 tablet by oral route every day 320 MG - Active Advance Directives Directive Yes / No Effective Date File Name No Information Encounters Encounter Description Practice Location Reason(s) For Visit Diagnoses Date Provider [facility], [address] [place], [address], [place] tel:[phone] [facility] No Information 5 Austin Carty. [address], [id number] , [place]. tel:[phone] [facility], [address] [place] [address], [facility], tel:[phone] [facility] f/u (chief complaint) Body mass index [BMI] 28.0-28.9, adultPrediabetesHyperlipi demiaEssential (primary) hypertensionHypothyroidis m 4 [facility] [address] [place] [address], [id number] , . tel: [phone] [facility], [address] [place] [address], [facility], tel:[phone] [facility] No Information 4 Avila Machelle. [address] [place] [address], [id number] , . tel: [phone] [facility], [address] [place] [address], [facility], tel:[phone] [facility] Repeat BP (chief complaint) Essential (primary) hypertensionOther transient cerebral ischemic related syndromeBody mass index [BMI] 28.0-28.9, adult 4 Avila Machelle. [address] [place] [address], [id number] , [place]. tel: [phone] [facility], [address] [place] [address], [facility], tel:[phone] [facility] follow up on labs (chief complaint) Body mass index [BMI] 28.0-28.9, adultEssential (primary) hypertensionHyperlipidemi aSubclinical iodine-deficiency hypothyroidism 4 Avila Machelle. [address] [place] [address], [id number] , . tel: [phone] [facility], [address] [place] [address], [facility], tel:[phone] [facility] [place] [facility] (chief complaint) Prediabetes 4 Avila Machelle. [address] [employer], [place], [id number] , . tel:[phone] [facility], [address] [place] [address], [facility], tel:[phone] [facility] [place] routine f/u, fasting labs (chief complaint) HyperlipidemiaEssential (primary) hypertensionPrediabetesSu bclinical iodine-deficiency hypothyroidismVitamin B12 deficiencyVitamin D deficiency, unspecifiedBody mass index [BMI] 29.0-29.9, adultLow income 4 Avila Machelle. [address] [employer], [place], [id number] , [place]. tel: [phone] [facility], [address] [place] [address], [facility], tel:[phone] [facility] [place] No Information 4 Avila Machelle. [address] [employer], [place], [id number] , [place]. tel: [phone] [facility], [address] [place] [address], [facility], [place] tel:[phone] [facility] [place] Encntr screen mammogram for malignant neoplasm of breast 3 Avila Machelle. [address] [place] [address], [id number] , [place]. tel: [phone] [facility], [address] [place] [address], [facility], [place] tel:[phone] [facility] [place] repeat labs (chief complaint) Subclinical iodine-deficiency hypothyroidismAcute renal injury 3 Avila Machelle. [address] [place] [address], [id number] , [place]. tel: [phone] [facility], [address] [place] [address], [facility], tel:[phone] [facility] [place] f/u labs (chief complaint) Body mass index [BMI] 28.0-28.9, adultEssential (primary) hypertensionHyperlipidemi aPrediabetesSubclinical iodine-deficiency hypothyroidismAcute renal injuryEncntr screen for malignant neoplasm of respiratory organsEncntr screen mammogram for malignant neoplasm of breast 3 Avila Machelle. [address] [employer], [place], [id number] , [place]. tel: [phone] [facility], [address] [place] [address], [facility], tel:[phone] [facility] [place] fasting labs (chief complaint) Essential (primary) hypertension 3 Avila Machelle. [address] [employer], [place], [id number] , [place]. tel: [phone] [facility], [address] [place] [address], [facility], tel:[phone] [facility] [place] Review of thyroid studies. (chief complaint) Body mass index [BMI] 28.0-28.9, adultEssential (primary) hypertensionSubclinical iodine-deficiency hypothyroidismHyperlipide [place] 3 Avila Machelle. [address] [employer], [place], [id number] , [place]. tel: [phone] [facility], [address] [place] [address], [facility], tel:[phone] [facility] [place] Follow up on BP (chief complaint) Body mass index [BMI] 29.0-29.9, adultEssential (primary) hypertensionSubclinical iodine-deficiency hypothyroidism 3 Avila Machelle. [address] [employer], [place], [id number] , [place]. tel: [phone] [place] [address], [place], [place], [facility], tel:[phone] [facility] [place] Follow up on Labs (chief complaint) Essential (primary) hypertensionVitamin D deficiency, unspecifiedVitamin B12 deficiencyHyperlipidemiaP rediabetesBody mass index [BMI] 29.0-29.9, adultSubclinical iodine-deficiency hypothyroidism 3 Avila Machelle. [address] [employer], [place], [id number] , . tel: [phone] [facility], [address] [place] [address], [facility], tel:[phone] [facility] [place] F/u BP and fasting labs (chief complaint) Body mass index [BMI] 28.0-28.9, adultEssential (primary) hypertensionEncounter for immunization 3 Austin Suazoissa. [address] [place] [address], [id number] , [place]. tel: [phone] [facility], [address] [place] [address], [facility], tel:[phone] [facility] [place] ear wax removal (chief complaint) Body mass index [BMI] 28.0-28.9, adultWax in right earEssential (primary) hypertension 3 Avila Machelle. [address] [employer], [place], [id number] , [place]. tel: [phone] [facility], [address] [place] [address], [facility], tel:[phone] [facility] [place] Shingles (chief complaint) Encounter for screening for depressionEncounter for screening examination for other mental health and behavioral disordersEncounter for screening for malignant neoplasm of cervixVaginitisZoster w/o complication 2 Avila Machelle. [address] [employer], [place], [id number] , [place]. tel: [phone] [facility], [address] [place], [address], [phone] [facility] No Information 2 Mya Mendosa. [address] [place], [address], [place]. tel: [phone] [facility], [address] [place], [address], tel:[phone] [facility] No Information 1 Austin Carty. [address], [place], [id number] , . tel: [phone] Family History Family Member Type Diagnosis Age At Onset Mother Problem Heart Trouble Son Problem Alive and well Father Problem prostate cancer Son Problem Alive and well Immunizations Vaccine Date Status Comments Influenza virus vaccine, trivalent (IIV3), split virus, preservative free, 0.5 mL dosage, for intramuscular use refused Source: Ne w Immunization Record Influenza Flulaval administered Source: N ew Immunization Record Influenza Flulaval refused Source: N ew Immunization Record COVID-19 mRNA (MOD) administered Source: Other Registry COVID-19 mRNA (MOD) administered Source: Other Registry COVID-19 mRNA (MOD) administered Source: Other Registry Payers Payer name Insurance type Covered alliance party ID Authoriza tion(s) [employer] Adv [employer] CI [id number] [facility] Adv Humana CI [id number] [facility] Adv Humana CI [id number] [facility]ly [facility]- Covered Under Jorge Luis CI [id number] [facility] Adv [employer] CI [id number] Social History Type Description Quantity Date Captured Comments Sex Female Smoking Status No Information Sexual Orientation Choose not to disclose Gender Identity Female Chief Complaint And Reason For Visit No Information Plan Of Treatment Date Type Action Status Goal DEXA scan. Due on 4 due Goal Tobacco Use Scre ening. Due on due Goal ECG. Due on due Goal Obtain blood Pre ssure. Due on due Goal CMP. Due on due Goal Follow up Plan f or abnormal BMI (Less than 18.5, greater than 25). Due on due Goal CBC. Due on due Goal Generalized Anxi ety Disorder - 7 (NATASHA-7). Due on due Goal Obtain Height, W eight, and BMI. Due on due Goal Pneumococcal vac cine. Due on due Goal Depression scree allen. Due on due Goal TSH. Due on due Goal Vitamin B12. Due on 025 due Goal Unhealthy drug use screening due Goal Vitamin D. Due on due Goal Drug Abuse Scree allen Test (DAST-10). Due on due Goal Urinalysis. Due on 24 due Goal Diabetes screening. Due on due Goal Hepatitis C Screening due Goal Lifestyle education regardin g diet completed Goal Drug Abuse Scree allen Test (DAST-10). Due on due Goal Unhealthy drug use screening due Goal Follow up Plan f or abnormal BMI (Less than 18.5, greater than 25). Due on due Goal TSH. Due on due Goal Tobacco Use Scre ening. Due on due Goal CMP. Due on due Goal Depression scree allen. Due on due Goal Obtain blood Pre ssure. Due on due Goal Tobacco Use Cess ation Counseling. Due on due Goal Vitamin B12. Due on 025 due Goal Generalized Anxi ety Disorder - 7 (NATASHA-7). Due on due Goal DEXA scan. Due on due Goal ECG. Due on due Goal Pneumococcal vac cine. Due on due Goal Influenza vaccine. Due on due Goal CBC. Due on due Goal Vitamin D. Due on due Goal Hepatitis C Screening due Goal Diabetes screening. Due on due Goal Obtain Height, W eight, and BMI. Due on due Goal Urinalysis. Due on due Goal Lifestyle education regardin g diet completed Goal CMP. Due on due Goal Generalized Anxi ety Disorder - 7 (NTAASHA-7). Due on due Goal TSH. Due on due Goal Drug Abuse Scree allen Test (DAST-10). Due on due Goal Urinalysis. Due on due Goal Pneumococcal vac cine. Due on due Goal Vitamin D. Due on due Goal Hepatitis C Screening due Goal Unhealthy drug use screening due Goal Diabetes screening. Due on due Goal DEXA scan. Due on due Goal Tobacco Use Cess ation Counseling. Due on due Goal Influenza vaccine. Due on due Goal ECG. Due on due Goal Obtain blood Pre ssure. Due on due Goal Vitamin B12. Due on due Goal Obtain Height, W eight, and BMI. Due on due Goal CBC. Due on due Goal Follow up Plan f or abnormal BMI (Less than 18.5, greater than 25). Due on due Goal Tobacco Use Scre ening. Due on due Goal Depression scree allen. Due on due Goal Lifestyle education regardin g diet completed Goal ECG. Due on due Goal Vitamin B12. Due on due Goal Drug Abuse Scree allen Test (DAST-10). Due on due Goal Obtain blood Pre ssure. Due on due Goal Urinalysis. Due on due Goal TSH. Due on due Goal Influenza vaccine. Due on due Goal Diabetes screening. Due on due Goal Follow up Plan f or abnormal BMI (Less than 18.5, greater than 25). Due on due Goal CBC. Due on due Goal Hepatitis C Screening due Goal DEXA scan. Due on due Goal CMP. Due on due Goal Unhealthy drug use screening due Goal Depression scree allen. Due on due Goal Vitamin D. Due on due Goal Tobacco Use Scre ening. Due on due Goal Obtain Height, W eight, and BMI. Due on due Goal Pneumococcal vac cine. Due on due Goal Generalized Anxi ety Disorder - 7 (NATASHA-7). Due on due Goal ECG. Due on due Goal Influenza vaccine. Due on due Goal Drug Abuse Scree allen Test (DAST-10). Due on due Goal Diabetes screening. Due on due Goal Vitamin D. Due on due Goal Vitamin B12. Due on 025 due Goal Hepatitis C Screening due Goal Urinalysis. Due on 24 due Goal Pneumococcal vac cine. Due on due Goal TSH. Due on due Goal Obtain Height, W eight, and BMI. Due on due Goal CMP. Due on due Goal Tobacco Use Scre ening. Due on due Goal DEXA scan. Due on due Goal Follow up Plan f or abnormal BMI (Less than 18.5, greater than 25). Due on due Goal CBC. Due on due Goal Unhealthy drug use screening due Goal Generalized Anxi ety Disorder - 7 (NATASHA-7). Due on due Goal Depression scree allen. Due on due Goal Obtain blood Pre ssure. Due on due Goal Lifestyle education regardin g diet completed Goal DEXA scan. Due on due Goal Drug Abuse Scree allen Test (DAST-10). Due on due Goal Obtain Height, W eight, and BMI. Due on due Goal Urinalysis. Due on due Goal Depression scree allen. Due on due Goal Pneumococcal vac cine. Due on due Goal Tobacco Use Scre ening. Due on due Goal Unhealthy drug use screening due Goal Tobacco Use Cess ation Counseling. Due on due Goal Generalized Anxi ety Disorder - 7 (NATASHA-7). Due on due Goal CMP. Due on due Goal Vitamin B12. Due on due Goal Obtain blood Pre ssure. Due on due Goal Diabetes screening. Due on due Goal ECG. Due on due Goal CBC. Due on due Goal Influenza vaccine. Due on due Goal TSH. Due on due Goal Vitamin D. Due on due Goal Hepatitis C Screening due Goal Follow up Plan f or abnormal BMI (Less than 18.5, greater than 25). Due on due Goal Obtain Height, W eight, and BMI. Due on due Goal DEXA scan. Due on due Goal Influenza vaccine. Due on due Goal Hepatitis C Screening due Goal Urinalysis. Due on due Goal Vitamin B12. Due on due Goal Pneumococcal vac cine. Due on due Goal Obtain blood Pre ssure. Due on due Goal Vitamin D. Due on due Goal TSH. Due on due Goal Tobacco Use Scre ening. Due on due Goal Drug Abuse Scree allen Test (DAST-10). Due on due Goal ECG. Due on due Goal Tobacco Use Cess ation Counseling. Due on due Goal CMP. Due on due Goal Unhealthy drug use screening due Goal Generalized Anxi ety Disorder - 7 (NATASHA-7). Due on due Goal Follow up Plan f or abnormal BMI (Less than 18.5, greater than 25). Due on due Goal Depression scree allen. Due on due Goal CBC. Due on due Goal Diabetes screening. Due on due Goal Depression scree allen. Due on due Goal Tobacco Use Cess ation Counseling. Due on due Goal Tobacco Use Scre ening. Due on due Goal ECG. Due on due Goal CBC. Due on due Goal DEXA scan. Due on 3 due Goal Drug Abuse Scree allen Test (DAST-10). Due on due Goal Generalized Anxi ety Disorder - 7 (NATASHA-7). Due on due Goal Obtain blood Pre ssure. Due on due Goal Vitamin D. Due on 4 due Goal Obtain Height, W eight, and BMI. Due on due Goal TSH. Due on due Goal Influenza vaccine. Due on due Goal Follow up Plan f or abnormal BMI (Less than 18.5, greater than 25). Due on due Goal Vitamin B12. Due on 024 due Goal CMP. Due on due Goal Urinalysis. Due on 23 due Goal Hepatitis C Screening due Goal Unhealthy drug use screening due Goal Pneumococcal vac cine. Due on due Goal Diabetes screening. Due on due Goal Depression scree allen. Due on due Goal Hepatitis C Screening due Goal TSH. Due on due Goal CBC. Due on due Goal Obtain Height, W eight, and BMI. Due on due Goal Drug Abuse Scree allen Test (DAST-10). Due on due Goal Generalized Anxi ety Disorder - 7 (NATASHA-7). Due on due Goal Influenza vaccine. Due on due Goal Unhealthy drug use screening due Goal Tobacco Use Scre ening. Due on due Goal Obtain blood Pre ssure. Due on due Goal DEXA scan. Due on due Goal Vitamin B12. Due on 024 due Goal ECG. Due on due Goal Follow up Plan f or abnormal BMI (Less than 18.5, greater than 25). Due on due Goal Diabetes screening. Due on due Goal CMP. Due on due Goal Urinalysis. Due on due Goal Vitamin D. Due on 4 due Goal Pneumococcal vac cine. Due on due Goal Lifestyle education regardin g diet completed Goal Tobacco Use Cess ation Counseling. Due on due Goal Pneumococcal vac cine. Due on due Goal DEXA scan. Due on 3 due Goal TSH. Due on due Goal Vitamin D. Due on 3 due Goal Drug Abuse Scree allen Test (DAST-10). Due on due Goal Generalized Anxi ety Disorder - 7 (NATASHA-7). Due on due Goal Obtain blood Pre ssure. Due on due Goal CBC. Due on due Goal Obtain Height, W eight, and BMI. Due on due Goal CMP. Due on due Goal Urinalysis. Due on due Goal Tobacco Use Scre ening. Due on due Goal Unhealthy drug u se screening. Due on due Goal Follow up Plan f or abnormal BMI (Less than 18.5, greater than 25). Due on due Goal Diabetes screening. Due on due Goal Influenza vaccine. Due on due Goal Vitamin B12. Due on due Goal ECG. Due on due Goal Hepatitis C Scre ening. Due on due Goal Depression scree allen. Due on due Goal Generalized Anxi ety Disorder - 7 (NATASHA-7). Due on due Goal Follow up Plan f or abnormal BMI (Less than 18.5, greater than 25). Due on due Goal Influenza vaccine. Due on due Goal Pneumococcal vac cine. Due on due Goal Drug Abuse Scree allen Test (DAST-10). Due on due Goal Unhealthy drug u se screening. Due on due Goal Vitamin B12. Due on 023 due Goal TSH. Due on due Goal Urinalysis. Due on due Goal Diabetes screening. Due on due Goal ECG. Due on due Goal Depression scree allen. Due on due Goal CMP. Due on due Goal Tobacco Use Cess ation Counseling. Due on due Goal CBC. Due on due Goal DEXA scan. Due on due Goal Obtain blood Pre ssure. Due on due Goal Vitamin D. Due on due Goal Tobacco Use Scre ening. Due on due Goal Hepatitis C Scre ening. Due on due Goal Obtain Height, W eight, and BMI. Due on due Goal Lifestyle education regardin g diet completed Goal Depression scree allen. Due on due Goal Hepatitis C Scre ening. Due on due Goal Follow up Plan f or abnormal BMI (Less than 18.5, greater than 25). Due on due Goal Unhealthy drug u se screening. Due on due Goal Urinalysis. Due on due Goal Vitamin D. Due on due Goal CMP. Due on due Goal Influenza vaccine. Due on due Goal Generalized Anxi ety Disorder - 7 (NATASHA-7). Due on due Goal Pneumococcal vac cine. Due on due Goal Vitamin B12. Due on 023 due Goal Obtain Height, W eight, and BMI. Due on due Goal ECG. Due on due Goal TSH. Due on due Goal Diabetes screening. Due on due Goal Drug Abuse Scree allen Test (DAST-10). Due on due Goal Obtain blood Pre ssure. Due on due Goal Tobacco Use Scre ening. Due on due Goal DEXA scan. Due on due Goal Tobacco Use Cess ation Counseling. Due on due Goal CBC. Due on due Goal Lifestyle education regardin g diet completed Goal Influenza vaccine. Due on due Goal DEXA scan. Due on 3 due Goal Unhealthy drug u se screening. Due on due Goal Tobacco Use Scre ening. Due on due Goal Vitamin D. Due on due Goal Depression scree allen. Due on due Goal Urinalysis. Due on 23 due Goal Pneumococcal vac cine. Due on due Goal Drug Abuse Scree allen Test (DAST-10). Due on due Goal TSH. Due on due Goal Diabetes screening. Due on A due Goal ECG. Due on due Goal Vitamin B12. Due on due Goal Tobacco Use Cess ation Counseling. Due on due Goal CBC. Due on due Goal Follow up Plan f or abnormal BMI (Less than 18.5, greater than 25). Due on due Goal Obtain Height, W eight, and BMI. Due on due Goal Obtain blood Pre ssure. Due on due Goal Hepatitis C Scre ening. Due on due Goal Generalized Anxi ety Disorder - 7 (NATASHA-7). Due on due Goal CMP. Due on due Goal Lifestyle education regardin g diet completed Goal ECG. Due on due Goal Urinalysis. Due on due Goal Obtain blood Pre ssure. Due on due Goal Influenza vaccine. Due on due Goal Depression scree allen. Due on due Goal Obtain Height, W eight, and BMI. Due on due Goal Unhealthy drug u se screening. Due on due Goal TSH. Due on due Goal Vitamin B12. Due on due Goal Vitamin D. Due on due Goal Diabetes screening. Due on due Goal CBC. Due on due Goal Pneumococcal vac cine. Due on due Goal Tobacco Use Scre ening. Due on due Goal CMP. Due on due Goal Drug Abuse Scree allen Test (DAST-10). Due on due Goal DEXA scan. Due on due Goal Tobacco Use Cess ation Counseling. Due on due Goal Hepatitis C Scre ening. Due on due Goal Generalized Anxi ety Disorder - 7 (NATASHA-7). Due on due Goal Follow up Plan f or abnormal BMI (Less than 18.5, greater than 25). Due on due Goal Lifestyle education regardin g diet completed Goal Influenza vaccine. Due on Co due Goal Generalized Anxi ety Disorder - 7 (NATASHA-7). Due on due Goal Diabetes screening. Due on due Goal CMP. Due on due Goal Unhealthy drug u se screening. Due on due Goal Tobacco Use Cess ation Counseling. Due on due Goal CBC. Due on due Goal Depression scree allen. Due on due Goal TSH. Due on due Goal Vitamin D. Due on due Goal Vitamin B12. Due on 023 due Goal Lipid panel. Due on 023 due Goal Obtain Height, W eight, and BMI. Due on due Goal DEXA scan. Due on due Goal Follow up Plan f or abnormal BMI (Less than 18.5, greater than 25). Due on due Goal Drug Abuse Scree allen Test (DAST-10). Due on due Goal Hepatitis C Scre ening. Due on due Goal Pneumococcal vac cine. Due on due Goal Tobacco Use Scre ening. Due on due Goal Dietary manageme nt education, guidance, and counseling completed Goal DEXA scan. Due on due Goal Tobacco Use Cess ation Counseling. Due on due Goal CMP. Due on due Goal Hepatitis C Scre ening. Due on due Goal Follow up Plan f or abnormal BMI (Less than 18.5, greater than 25). Due on due Goal Pneumococcal vac cine. Due on due Goal Drug Abuse Scree allen Test (DAST-10). Due on due Goal Lipid panel. Due on due Goal Influenza vaccine. Due on due Goal Tobacco Use Scre ening. Due on due Goal Vitamin B12. Due on due Goal Diabetes screening. Due on due Goal Depression scree allen. Due on due Goal CBC. Due on due Goal Obtain Height, W eight, and BMI. Due on due Goal Generalized Anxi ety Disorder - 7 (NATASHA-7). Due on due Goal Vitamin D. Due on due Goal TSH. Due on due Goal Follow up Plan f or abnormal BMI (Less than 18.5, greater than 25). Due on due Goal CMP. Due on due Goal Pneumococcal vac cine. Due on due Goal CBC. Due on due Goal Hepatitis C Scre ening. Due on due Goal Vitamin B12. Due on due Goal Obtain Height, W eight, and BMI. Due on due Goal Depression scree allen. Due on due Goal Diabetes screening. Due on due Goal TSH. Due on due Goal Vitamin D. Due on due Goal Tobacco Use Cess ation Counseling. Due on due Goal Lipid panel. Due on due Goal Tobacco Use Scre ening. Due on due Goal DEXA scan. Due on due Goal Generalized Anxi ety Disorder - 7 (NATASHA-7). Due on due Goal Influenza vaccine. Due on due Goal Drug Abuse Scree allen Test (DAST-10). Due on due Referral Ordered: US EXAM ABDO BACK WALL, COMP Bilateral kidneys Appointment date/timeframe: 04/23/2024 ordered Referral Ordered: EXTRACRANIAL STUDY Bilateral carotid arteries Appointment date/timeframe: 04/23/2024 ordered Referral Ordered: VASCULAR STUDY Bilateral Renal Arteries Appointment date/timeframe: 04/23/2024 ordered Referral Referred To: [facility] Ordered: Referrals: Radiotherapy. [facility]. Location: [place]. Diagnostic testing Appointment date/timeframe: 07/19/2023 ordered Referral Referred To: [facility] Ordered: Referrals: Radiotherapy. [facility]. Location: [place]. Diagnostic testing Appointment date/timeframe: 10/01/2023 ordered Future Order: Lab Order CBC With Differential/Platelet ([id number]), Scheduled for: Ordered Future Order: Lab Order Comp. Me tabolic Panel (14) ([id number]), Scheduled for: Ordered Future Order: Lab Order Hemoglob in A1c ([id number]), Scheduled for: Ordered Future Order: Lab Order Lipid Pa nahomy ([id number]), Scheduled for: Ordered Future Order: Lab Order TSH ([id number]), Scheduled for: Ordered Future Order: Lab Order CBC (INC LUDES DIFF/PLT) ([id number]), Scheduled for: Ordered Future Order: Lab Order TSH W/RE FLEX TO FREE T4 ([id number]), Scheduled for: Ordered History Of Present Illness Encounter Date Complaint History Of Prese nt Illness Hospital f/u Lucina is a 79 yo female here today for f/u from recent hospitalization and medication f/u.05/29/24 She was admitted to the hospital from the ER for and acute st elevation myocardial infarction.SHe went back to her previous PCP, Dr. Elpidio Cai for intial f/uShe has been told it would be best to have only one PCP for her care.SHe is also followed by Dr. Amador Mcmillan -Cardiology. Her last visit with them was 07/16/24, but this note is not available for review at this time.Blood thinners x 6 months to a year f/u w/ cards in [place] blood in stool- but has had recent appt w/ Dr. Harris- GI that does not want to do anything at this time r/t on blood thinners and recent [place].Today she is here to discuss f/u on medicationsMany Changes in medicationBeverly is asking for a handicap sticker- it is difficult to walk long distances without getting short of breath. I am agreeable to do this for her.denies dizziness/cpdoing cardiac rehab two times weeklyFlu vaccine declined today Repeat BP Lucina is here today to f/u on her BP- it has improved since her last visit on 03.12.24. BP Rt arm 148/78 and left 147/81. She has not taken her BP medication this morning. She has been monitoring her home BP with a home upper arm cuff and machine. She has brought her reading in with her: See scanned to chart.Systolic has ranged from 162/206 and diastolic 77-103 with average 160's to mid 80's readings. Most recent labs showed that her creatinine was slightly elevated, and has been off and on over the past year. She denies frequent use of NSAIDS, states she does drink lots of water. She does admit to having a higher sodium consumption, but has been working to reduce intake.She is currently stage II HTN, on Valsartan 80 mg daily, and is mostly compliant with medication.Her ASCVD 10 year risk is high at 62.3%Yesterday Lucina reports having a twinge or dull-like headache in the frontal portion of her head. She stated that she has two events of some "dizziness this past week, and is concerned for having a stroke. on two of her home readings, BP was 206/103 and 201/96.She states that she is not dizzy currently and BP is much improved in office today, but due to risk of stroke, and these TIA- like symptoms, I feel it would be best to evaluate her carotid arteries, as well as having a renal artery and renal US. She is agreeable.Education on signs and symptoms of stroke are and when to seek emergency care. She voiced understanding. 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 follow up on labs Lucina is a [age] yo female here today for f/u on recent labs.She is doing ok. She recently lost her in January.TSH dzydnfP5c 6.3B12 and folate wnlTotal cholesterol 164HDL 58LDL 79Trigs 622Vdmrufaqpq1.04GFR 55Hct elevated 52.2hgb 16.6RBC 5.70HTN: 178/89, R 168/69 LtStates that she just took her medication this morningdid not sleep much last night ether.Diet modification was discussed to decrease sodium and sugar intake.She states she does eat a lot of salt.She is opposed to starting any new medications.She has hx of smoking- quit 10-15 years agohigh sodium dieton Valsartancompliant w/ medication FASTING LABS LUCINA IS HERE TODAY FOR FASTING LABS. SUCCESSFULLY COLLECTED 3 TUBES, PT TOLERATED WELL, GAUZE AND COBAN APPLIED, PT INSTRUCTED TO REMOVE IN 5-10 MINUTES, PT VOICED UNDERSTADNING. PT IS SCHEUDLED TO RTC IN 2 WEEKS TO FOLLOW UP ON LAB RESUTLS. routine f/u, fasting labs Kiara upton is a 78 yo female here today for fasting lab collection. She has hx of colon ca, HTN, lung nodule, Hypothyroidism, HLD, Vit D, Vit b12 def.She is currently on levothyroxine daily, vit d, and vit BMammo was 10/16/23- Brads-2 Benign- repeat [address] 07/19/23- Repeat in Jun- rashida nodules < 5 mm- Lung Rads Category 2TSH stable since Jul- repeat todayHLD - declines medication- diet modification discussedVit D/Vit B12- improved- daily supplementShe is due for a dexa scan- she reports having one several years ago, but we did not discuss this today. Will ask at next visit if desired. repeat labs Lucina is here today for repeat labs, cmp and TSH.She reports compliance with her medicationsReports no changes in how she feels - Well CT scan was reviewed w/ yoselyn pulmonary nodulesrepeat in 12 months f/u labs Lucina is here today for f/u on recent labs and htn:A1c 5.9 reports she has had 20 lbs weight gainIt is stable since last visitCholesterol improved, Trigs remain high 177She declines to take medication at this time diet modifications were discussed- she has decreased fried fatty foodsfamily hx of hldVit D 51, b12 490- has improved since supplementationCMP- Creatinine 1.11, bun 51improved, but still [employer]. still elevated.Discussed importance of proper hydrationwill repeat in 6 weeks to monitorTSH- again elevated, 4.82, t4 1.0starting levothyroxinespecific instructions given to take medication 2 hrs prior or after food consumptionHTNBP improved inyej040/64 rt102/61 ltOver all- Lucina states she is doing wellno complaintsgoing [facility].She is a former smoker- quit 8 years ago, but has a 30 year pack hxShe has never had a screening low dose ct for lung cadue for mammogram in June. fasting labs Brianna is here today for lab collection- she is fasting. Review of thyroid studies. Pt vo iced no complaints. Requests refill of BP medication.Denies external medical or ER visits.TSH was normal at last labs- will repeat fasting/routine labs in MayRefills sent for Valsaratan 80 mg dailyShe continues to take [facility] vitamins b12 and DHx of colon CA- last colonoscopy was 09/14/21Reviewed- Recommended to possibly have repeat colonoscopy in 5 years due to anatomical challenges of colonCT of abd and labs including CEA level may be a better option for ptHx of diverticulosis, anal stenosis, chronic thickening at the rectosigmoid regionreport will be scanned to chart Follow up on BP Lucina is here today to follow up on her BP. She states she is feeling well. She is taking her [id number] BP 152/74 rt and 132/77 LRepeat TSH today. Follow up on Labs Lucina is her e today to follow up on lab results. TSH 4.52- no hx of thyroid disease, will repeat labs 178- declines injections, will start oral supplement-only if insurance will coverVit D 16 oral supplement otc (she called back to state vitamins not covered by insurance and she will not buy them)A1C 5.9Total C 171, LDL 85, HDL 56, and Trigs 207- diet modifications recommended (mediterainian diet) Pt denies any complaints today. BP high this AM, 147/79 in left arm while sitting, 153/89 in right arm while sitting. Pt brought in bp readings from home today.203/110, 192/99, 180/104Shdesirae is agreeable to start Valsartan today for better bp controlrisks and benefits discussedRTC 2 weeks bp checkRTC 1 month f/u bp and repeat tsh F/u BP and fasting labs Lucina is here today to f/u on BP- it has been elevated in the past visits. She does not take medication for this. She was provided with diet education at last visit and again to day for a low fat/ low sodium and healthier lifestyle.She is fasting todayDenies bright, dizziness, soa, cp or fainting. Denies blurred visionShe is agreeable to have flu vaccine todayCovid booster currentShe delcines BP medication today- bp was 179/93rt and 154/88 lt Despite risk of stroke/[place] ear wax removal Lucina is a 77 yo female here today for ear wax removal of her right earShe had this completed once before, but has seemed to become more clogged in the past two days.She is hypertensive today on two readings. She does not take medications, nor does she wish to start.She is not current with vaccinations: Due for flu, covid booster, pna booster, tdap, shingles- all of which she declines at this timeShe was last seen in August when she had shingles. She states this has not completely resolved, but is better.She denies cp, soa, bright, dizzinessDiet modifications to reduce sodium were discussed- less than 2 gramsShe declines to have labs collected today.Advised for her to return in the coming weeks for fasting labs and flu shots, repeat BPShe states she is afraid of needles. Shingles Lucina is here today due to ongoing outbreak of shingles on left side of buttock. Shingles started on June 27, 2022. Pt states that her vagina is also sore and burning. 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 She went and see her PCP, they done a biopsy and gave her a zpack. The biopsy came back as bacterial infection, Enterococcus faecalis. The area got better and is no longer blistering but there are still spots that are painful. Pt is also experiencing aching in rt hip. Pt had xray done in June 2022 at [facility] on her hip and it came back as arthritis.Pt prescribed Clindamycin HCL 300 MG. Taken for 10 days. Completed. Pt prescribed Famciclovir 250 MG. Taken for 10 days. Completed.Pt has pcp- Dr. Quinteros, but is her cousin and did not wish to see him for this complaintDeclines flu vaccine todayDeclines fasting labs todayMammo current Instructions Date Instruction Additional Infor bekah Patient educated on the importance of maintaining glycemic control. Counseled on diet, exercise and other lifestyle factors that can impact glucose control. Instructed on the importance of taking all medications as prescribed. Patient aware of the importance of diabetic eye exams, dental check ups, foot exams and diabetic foot care. Patient verbalized understanding. Related to Prediabetes Patient instructed o f the importance of taking medications as prescribed, following a low salt diet as well as getting physical activity as tolerated. Patient advised to keep BP log daily checking each morning and before bed. Patient to call the clinic if systolic blood pressure is greater than 150 and/or diastolic blood pressure is staying greater than 90. Related to Essential (primary) hypertension Take medication milagros y at the same time, and on an empty stomach. Get adequate rest daily and 30 minutes of moderate exercise most days of the week. Related to Hypothyroidism Low fat, low cholest dariusz diet. Avoid fatty, fried, and greasy foods. Physical activity as tolerated. Counseled on risks of associated comorbidities, such as heart disease and stroke. Encouraged avoidance of tobacco products. Related to Hyperlipidemia Giving encouragement to exercise Related to Body mass index [BMI] 28.0-28.9, adult Lifestyle education regarding di et Related to Body mass index [BMI] 28.0-28.9, adult If you are experienc ing signs and symptoms of stroke, go to the ER immediately for evaluation.Some symptoms include, but are not limited to facial droop, slurred speech, weakness in one ore more extremities, difficulty with balance or walking. Do not wait to go to the ER- TIME MATTERS in the event of a stroke. 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 Patient advised to keep BP log daily checking each morning and before bed. Patient to call the clinic if systolic blood pressure is greater than 150 and/or diastolic blood pressure is staying greater than 90. Related to Essential (primary) hypertension Giving encouragement to exercise Related to Body mass index [BMI] 28.0-28.9, adult Lifestyle education regarding di et Related to Body mass index [BMI] 28.0-28.9, adult Low fat, low cholest dariusz diet. Avoid fatty, fried, and greasy foods. Physical activity as tolerated. Counseled on risks of associated comorbidities, such as heart disease and stroke. Encouraged avoidance of tobacco products. Related to Hyperlipidemia Patient instructed o f the importance of taking medications as prescribed, following a low salt diet as well as getting physical activity as tolerated. Patient advised to keep BP log daily checking each morning and before bed. Patient to call the clinic if systolic blood pressure is greater than 150 and/or diastolic blood pressure is staying greater than 90. Related to Essential (primary) hypertension Giving encouragement to exercise Related to Body mass index [BMI] 28.0-28.9, adult Lifestyle education regarding di et Related to Body mass index [BMI] 28.0-28.9, adult Physical activity as tolerated. Try to engage in some form of moderate physical activity for 30 minutes most days of the week. May modify activity as needed to reduce discomfort. Try to achieve/maintain a healthy body weight to reduce strain on musculoskeletal system. Verbalizes an understanding. Related to Body mass index [BMI] 29.0-29.9, adult 15 minutes of sun ex posure daily to naturally raise vitamin D levelsContinue supplementationDue for Dexa Scan- will need to discuss at next visit Related to Vitamin D deficiency, unspecified Take medication milagros y at the same time, and on an empty stomach. Get adequate rest daily and 30 minutes of moderate exercise most days of the week. 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 Additional oral B12 replacement if indicated.Continue OTC supplementation Related to Vitamin B12 deficiency Patient currently do ing well. BP in goal range. No medication changes. Patient instructed to follow a low salt diet, continuing taking blood pressure medications as prescribed. Keep routine follow up with clinic. Related to Essential (primary) hypertension Low fat, low cholest dariusz diet. Avoid fatty, fried, and greasy foods. Physical activity as tolerated. Counseled on risks of associated comorbidities, such as heart disease and stroke. Encouraged avoidance of tobacco products. Related to Hyperlipidemia Giving encouragement to exercise Related to Body mass index [BMI] 29.0-29.9, adult Lifestyle education regarding di et Related to Body mass index [BMI] 29.0-29.9, adult Avoid the use of NSA IDS, increase your water consumption throughout the date.Low sodium diet recommended. Keep you BP under control- Goal of <130/80. Related to Acute renal injury Physical activity as tolerated. Try to engage in some form of moderate physical activity for 30 minutes most days of the week. May modify activity as needed to reduce discomfort. Try to achieve/maintain a healthy body weight to reduce strain on musculoskeletal system. Verbalizes an understanding. Related to Body mass index [BMI] 28.0-28.9, adult Patient educated on the importance of maintaining glycemic control. Counseled on diet, exercise and other lifestyle factors that can impact glucose control. Patient aware of the importance of diabetic eye exams, dental check ups, foot exams and diabetic foot care. Patient verbalized understanding. Related to Prediabetes Take medication milagros y at the same time, and on an empty stomach. Get adequate rest daily and 30 minutes of moderate exercise most days of the week. 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 Avoid fatty, fried, and greasy foods. Physical activity as tolerated. Counseled on risks of associated comorbidities, such as heart disease and stroke. Encouraged avoidance of tobacco products. Related to Hyperlipidemia Patient currently do ing well. BP in goal range. No medication changes. Patient instructed to follow a low salt diet, continuing taking blood pressure medications as prescribed. Keep routine follow up with clinic. Related to Essential (primary) hypertension Giving encouragement to exercise Related to Body mass index [BMI] 28.0-28.9, adult Lifestyle education regarding di et Related to Body mass index [BMI] 28.0-28.9, adult Physical activity as tolerated. Try to engage in some form of moderate physical activity for 30 minutes most days of the week. May modify activity as needed to reduce discomfort. Try to achieve/maintain a healthy body weight to reduce strain on musculoskeletal system. Verbalizes an understanding. Related to Body mass index [BMI] 28.0-28.9, adult Low fat, low cholest dariusz diet. Avoid fatty, fried, and greasy foods. Physical activity as tolerated. Counseled on risks of associated comorbidities, such as heart disease and stroke. Encouraged avoidance of tobacco products. Related to Hyperlipidemia Patient instructed o f the importance of taking medications as prescribed, following a low salt diet as well as getting physical activity as tolerated. Patient advised to keep BP log daily checking each morning and before bed. Patient to call the clinic if systolic blood pressure is greater than 150 and/or diastolic blood pressure is staying greater than 90. Related to Essential (primary) hypertension Giving encouragement to exercise Related to Body mass index [BMI] 28.0-28.9, adult Lifestyle education regarding di et Related to Body mass index [BMI] 28.0-28.9, adult Giving encouragement to exercise Related to Body mass index [BMI] 28.0-28.9, adult Patient currently do ing well. BP in goal range. No medication changes. Patient instructed to follow a low salt diet, continuing taking blood pressure medications as prescribed. Keep routine follow up with clinic. 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 Try to engage in some form of moderate physical activity for 30 minutes most days of the week. May modify activity as needed to reduce discomfort. Try to achieve/maintain a healthy body weight to reduce strain on musculoskeletal system. Verbalizes an understanding. Related to Body mass index [BMI] 29.0-29.9, adult Giving encouragement to exercise Related to Body mass index [BMI] 29.0-29.9, adult Lifestyle education regarding di et Related to Body mass index [BMI] 29.0-29.9, adult Physical activity as tolerated. Try to engage in some form of moderate physical activity for 30 minutes most days of the week. May modify activity as needed to reduce discomfort. Try to achieve/maintain a healthy body weight to reduce strain on musculoskeletal system. Verbalizes an understanding. Related to Body mass index [BMI] 29.0-29.9, adult Patient educated on the importance of maintaining glycemic control. Counseled on diet, exercise and other lifestyle factors that can impact glucose control. Patient verbalized understanding. Related to Prediabetes Low fat, low cholest dariusz diet. Avoid fatty, fried, and greasy foods. Physical activity as tolerated. Counseled on risks of associated comorbidities, such as heart disease and stroke. Encouraged avoidance of tobacco products. Related to Hyperlipidemia 15 minutes of sun ex posure daily to naturally raise vitamin D levels Related to Vitamin D deficiency, unspecified B-12 injection given in office today. Eat foods rich in B-12. Additional oral B12 replacement if indicated. Related to Vitamin B12 deficiency Patient instructed o f the importance of taking medications as prescribed, following a low salt diet as well as getting physical activity as tolerated. Patient advised to keep BP log daily checking each morning and before bed. Patient to call the clinic if systolic blood pressure is greater than 150 and/or diastolic blood pressure is staying greater than 90. Related to Essential (primary) hypertension Giving encouragement to exercise Related to Body mass index [BMI] 29.0-29.9, adult Lifestyle education regarding di et Related to Body mass index [BMI] 29.0-29.9, adult FLu Vaccine today, Y ou may have some mild discomfort, chills, or a sore arm in the next 24 hrs. If needed you may take tylenol per packing instructions Related to Encounter for immunization Dietary Instructions for a healthy weight: BMI should be between the range of 18.5-24.9 for an adult; and Caloric intake should be around 4390-4410 for a female, and 7830-2011 for an adult male. Fiber intake should be about 14 grams for 1000 calories per day. That is about 20-30 grams daily. Good sources of fiber are oatmeal, fortified grains, and green leafy vegetables, apples. You can also use Carbohydrate counting to maintain a healthy weight. One serving is equal to 15 grams (1 piece of bread, small fruit, or 1 cup of milk). Men should have 45-75, Women about 30-65 per meal, and snacks are recommend to be 13-30 grams each. IXcellerateplate.gov is a good source for meal planning and dietary education. You may also refer to the [place] [employer] website for further low sodium, health heart diet information. Mediterainian diet would be a suitable diet for your current health conditions. Weight loss is recommend. Being active is an essential part of being healthy. Physical activity as tolerated. Try to engage in some form of moderate physical activity for 30 minutes most days of the week. May modify activity as needed to reduce discomfort. Try to achieve/maintain a healthy body weight to reduce strain on musculoskeletal system. Verbalizes understanding. Related to Body mass index [BMI] 28.0-28.9, adult Patient instructed o f the importance of starting medications as prescribed to lower BP, but declines at this time. Instructed on importance of following a low salt diet as well as getting physical activity as tolerated. Patient advised to keep BP log daily checking each morning and before bed. Patient to call the clinic if systolic blood pressure is greater than 150 and/or diastolic blood pressure is staying greater than 90. Related to Essential (primary) hypertension Giving encouragement to exercise Related to Body mass index [BMI] 28.0-28.9, adult Lifestyle education regarding di et Related to Body mass index [BMI] 28.0-28.9, adult Physical activity as tolerated. Try to engage in some form of moderate physical activity for 30 minutes most days of the week. May modify activity as needed to reduce discomfort. Try to achieve/maintain a healthy body weight to reduce strain on musculoskeletal system. Verbalizes an understanding. Related to Body mass index [BMI] 28.0-28.9, adult Ear irrigation of ri ght ear todayUse debrox solution or sweet oil to keep earwax soft.Clean ear canals only with a twisted tissue or towel.Do not use q-tips Related to Wax in right ear Patient instructed o f the importance of taking medications as prescribed, following a low salt diet as well as getting physical activity as tolerated. Patient advised to keep BP log daily checking each morning and before bed. Patient to call the clinic if systolic blood pressure is greater than 150 and/or diastolic blood pressure is staying greater than 90. Related to Essential (primary) hypertension Dietary management e ducation, guidance, and counseling Related to Body mass index [BMI] 28.0-28.9, adult Giving encouragement to exercise Related to Body mass index [BMI] 28.0-28.9, adult Use Valtrax as instr ucted.If you have open lesions on vaginal wall, you can crush a tablet and make a paste to apply dirrectly to the lesion once or twice daily.Keep area dryDo not use peroxideUse cotton, white underware. Related to Zoster w/o complication If you frequently bright ve bacterial vaginosis, do not soak in tub baths. You may take Florastor daily (an over the counter probiotic). Wear white cotton underwear. Do not use perfumed soaps or feminine deodorants. Related to Vaginitis Assessments Type Assessment Date No Information
--- NOTE | 2025-03-25 10:46 | MM_ITS ---
PROCEDURE INFORMATION: Exam: MG Bilateral Screening 3D Mammography Exam date and time: 03/25/2025 11:03 AM Age: 80 years old Clinical indication: Screening examination TECHNIQUE: Imaging protocol: Bilateral Screening tomosynthesis and 2D mammography including computer-aided detection (CAD) when performed. COMPARISON: 1. MG MM DIG SCREENING MAMM BI W/CAD 10/01/2023 9:31 AM 2. MG MM DIG SCREENING MAMM BI W/CAD 09/27/2022 7:54 AM FINDINGS: MAMMOGRAPHY: Breast composition: The breasts are heterogeneously dense, which may obscure small masses. Mass: None. Architectural distortion: None. Calcifications: No suspicious calcifications. Asymmetric density: None. Skin thickening: None. Axillary adenopathy: None. IMPRESSION: No mammographic evidence of malignancy. Annual screening is recommended unless otherwise clinically indicated. ASSESSMENT: BI-RADS Category 1: Negative.
--- OUTSIDE RECORDS SUMMARY | 2025-03-25 10:48 | XMS_ITS | Patient Health Record ---
[facility] [address] [facility] [address] [place] [id number] Care Team Providers Care Laboratory Secretary Name Role Phone Elpidio uQinteros Primary Care Provider [phone] Allergies No Known Allergies Results Component [...] - 38 plat 366 100 - 400 CBC Venipuncture (in house) Reviewed date:2025 12:29:31 [...] Interpretation: Performing Lab: Notes/Report: Test performed by [facility] [employer] [address] [place] [address] , [address], [place] [address] Jose Bradley MD, [employer] CLIA: [id number] Vitamin B12 5684 370-4296 pg/mL P-Comprehensive Metabolic Pa nahomy (CMP) Reviewed date:01/22/2025 02:56:35 PM Interpretation: Performing Lab: Notes/Report: Test performed by [facility] [address] [place] [address] , [address], [place] [address] Jose Bradley MD, [employer] CLIA: [id number] Sodium 140 135-145 mmol/L Potassium 4.2 3.5-5.3 [...] Interpretation: Performing Lab: Notes/Report: Test performed by [facility] [address] [place] [address] , [address], [place] [address] Jose Bradley MD, [employer] CLIA: [id number] Thyroxine Free (free T4) 1.41 0.86-1.76 ng/dL P-Lipid Panel Reviewed date:01/22/2025 02:56:35 PM Interpretation: Performing Lab: Notes/Report: Test performed by [facility] [address] [place] [address] , [address], [place] [address] Jose Bradley MD, [employer] CLIA: [id number] Cholesterol 107 <200 mg/dL Triglycerides 152 <150 [...] Interpretation: Performing Lab: Notes/Report: Test performed by [facility] [address] [place] [address] , [address], [place] [address] Jose Bradley MD, [employer] CLIA: [id number] TSH 2.28 0.43-5.25 mU/L P-Microalbumin/Creatinine, R andom Urine Sample Reviewed date:01/22/2025 02:56:35 PM Interpretation: Performing Lab: Notes/Report: Test performed by [facility] [address] [place] [address] , [address], [place] [address] Jose Bradley MD, [employer] CLIA: [id number] Albumin/Creatinine Ratio, Urine 5 0-30 ug/mg Microalbumin, Urine, Random 0.3 Creatinine, Urine 63.4 P-Vitamin D 25-Hydroxy Reviewed date:01/22/2025 02:56:35 PM Interpretation: Performing Lab: Notes/Report: Test performed by [facility], [address] , [address], [place] [address] Jose Bradley MD, [employer] CLIA: [id number] Vitamin D 25-Hydroxy 50.0 30.0-100.0 ng/mL Interpretation of Vitamin D 25 [place]: < 20 ng/mL - Deficiency 20 - 29 ng/mL - Insufficiency 30 - 100 ng/mL - Sufficiency > 100 ng/mL - Super-therapeutic- toxicity may occur above this level. Clinical correlation required. H-DIFF Reviewed date:09/28/2024 09:19:09 PM Interpretation: Performing Lab: Notes/Report: ODETTE MANUAL DIFFERENTIAL MANUAL DIFF TCC 100 NEUT%M 77 42-76 % LYMPH%M 20 10-50 % MONO%M 1 2-9 % EOS%M 2 0-3 % RM Normal CXR Reviewed date:09/28/2024 09:19:09 PM Interpretation:favor pneumonia, 09/29/24 OV f/u Performing Lab: Notes/Report: favor pneumonia, 09/29/24 OV f/u Covid test (in house) Reviewed date:09/22/2024 04:05:32 PM Interpretation: Performing Lab: Notes/Report: Result: Neg H-CBC Reviewed date:09/28/2024 09:19:09 PM Interpretation:Abnormal Performing Lab: Notes/Report: WBC 18.4 4.8-10.8 K/mm3 RBC 3.99 4.20-5.40 M/mm3 HGB 9.3 12.2-16.2 g/dL HCT 31.2 37.0-47.0 % MCV 78.2 81-99 fl MCH 23.3 27.0-31.2 pg MCHC 29.8 31.8-35.4 g/dL RDW 15.2 11.5-17.5 % PLT 291 142-424 K/mm3 MPV 9.5 7.4-10.4 fl NE% 75.8 37.0-80.0 % LY% 13.0 10-50 % MO% 7.1 1.7-9.3 % EO% 2.8 0.1-12.0 % BA% 0.7 0.1-2.0 % NE# 14.0 1.8-7.8 K/mm3 LY# 2.4 0.7-4.5 K/mm3 MO# 1.3 0.1-1.0 K/mm3 EO# 0.5 0.0-0.4 K/mm3 BA# 0.1 0-0.2 K/mm3 Influenza Screen (in house) Reviewed date:09/22/2024 04:05:23 PM Interpretation: Performing Lab: Notes/Report: results Neg CBC Venipuncture (in house) Reviewed date:07/03/2024 11:57:58 AM Interpretation: Performing Lab: Notes/Report: wbc 12.3 3.5 - 10 lymph 8.9% 15 - 50 mid 11.3% 2 - 15 gran 79.8% 35 - 80 rbc 4.60 3.5 - 5.5 hgb 13.5 11.5 - 16.5 hct 41.3 35 - 55 mcv 89.6 75 - 100 mch 29.3 25 - 35 mchc 32.7 31 - 38 platlet 270 100 - 400 P-Vitamin B12 Reviewed date:07/03/2024 12:52:23 PM Interpretation:Normal Performing Lab: Notes/Report: Test performed by [facility] [address] [place] [address] , [address], [place] [address] Jose Bradley MD, [employer] CLIA: [id number] Vitamin B12 0305 003-5384 pg/mL P-T4 Free (thyroxine) Reviewed date:07/03/2024 12:52:23 PM Interpretation:Normal Performing Lab: Notes/Report: Test performed by [facility] [address] [place] [address] , [address], [place] [id number] Jose Bradley MD, [employer] CLIA: [id number] Thyroxine Free (free T4) 1.66 0.86-1.76 ng/dL P-TSH Reviewed date:07/03/2024 12:52:23 PM Interpretation:Normal Performing Lab: Notes/Report: Test performed by [facility] [address] [place] [address] , [address], [place] [address] Jose Bradley MD, [employer] CLIA: [id number] TSH 3.02 0.43-5.25 mU/L P-Vitamin D 25-Hydroxy Reviewed date:07/03/2024 12:52:23 PM Interpretation:56.7 Performing Lab: Notes/Report: Test performed by [facility] [address] [place] [address] [address] , [place] [address] Jose Bradley MD, [employer] CLIA: [id number] Vitamin D 25-Hydroxy 56.7 30.0-100.0 ng/mL Interpretation of Vitamin D 25 [place]: < 20 ng/mL - Deficiency 20 - 29 ng/mL - Insufficiency 30 - 100 ng/mL - Sufficiency > 100 ng/mL - Super-therapeutic- toxicity may occur above this level. Clinical correlation required. proBrain Natriuretic Peptide Reviewed date:07/03/2024 12:52:23 PM Interpretation:319 Performing Lab: Notes/Report: Test performed by [facility] [address] [place] [address] [address], [place] [address] Jose Bradley MD, [employer] CLIA: [id number] proBrain Natriuretic Peptide 319 <300 pg/mL Please note the updated reference range values which are stratified by age. Positive >1800 pg/mL Indeterminate 300-1800 pg/mL Negative<300 pg/mL CXR Reviewed date:07/03/2024 12:52:23 PM Interpretation:No acute cardiopulmonery process; COPD Performing Lab: Notes/Report: No acute cardiopulmonery process; COPD Medications Medication SIG (Take, Route, Frequency, Duration) Notes Start Date End Date Status Metoprolol Succinate ER 50 MG 1 tablet Orally Once a day Active Brilinta 90 MG 1 tablet Orally Twic e a day Active Atorvastatin Calcium 40 MG 1 tablet Oral ly Once a day Active Zithromax Z-Prince 250 MG as directed Orall y once daily; Duration: 5 days 2025 Active Levothyroxine Sodium 50 MCG 1 tablet in the morning on an empty stomach Orally Once a day; Duration: 90 days Active Vitamin B12 1000 MCG 1 tablet Orally Onc e a day; Duration: 30 day(s) Active Ferrous Sulfate 325 (65 Fe) MG 1 tablet Orally once daily 10/02/2024 Active Albuterol Sulfate HFA 108 (90 Base) MCG/ACT 1 or 2 puffs as needed Inhalation every 4 hrs 09/22/2024 Active Gabapentin 300 MG 1 cap(s) orally 2 ti mes a day 07/11/2022 Active Vitamin D3 50 MCG (1999 UT) 1 capsule Or ally Once a day 10/23/2024 Active Valsartan 320 MG 1 tablet Orally Once a day Active Aspirin Low Dose 81 mg TAKE ONE TABLET B Y MOUTH EVERY DAY; Duration: 30 Active Immunizations Vaccine Route Administration Date Status Comme nts tuberculin (ppd) ID Intradermal 06/19/2008 Administered COVID 19 Moderna Unknown 10/20/2020 Administered COVID 19 Moderna Unknown 11/17/2020 Administered COVID 19 Moderna Unknown 06/18/2021 Administered Problems Problem Type SNOMED Code ICD Code Onset Dates Problem Status W/U Status Risk Notes Problem Essential hypertension (44511950) Essential (primary) hypertension (I10) Active confirmed Problem Vitamin D deficiency (25774253) Vitamin D deficiency (E55.9) Active confirmed Problem History of malignant neoplasm of colon (577996022) History of colon cancer (Z85.038) Active confirmed Problem Malignant tumor of ascending colon (954204427) Malignant neoplasm of ascending colon (C18.2) Active confirmed Problem Acquired hypothyroidism (497578380) Acquired hypothyroidism (E03.9) Active confirmed Problem Iron deficiency anemia due to chronic blood loss (255806562) Iron deficiency anemia due to chronic blood loss (D50.0) Active confirmed Problem Anemia (690779423) Anemia, unspecified type (D64.9) Active confirmed Problem Sciatica (95784682) Right sided sciatica (M54.31) Active confirmed Problem Atrial fibrillation (14630160) Atrial fibrillation with RVR (I48.91) Active confirmed Problem STEMI - ST elevation myocardial infarction (225525707) ST elevation myocardial infarction (STEMI), unspecified artery (I21.3) Active confirmed Problem Tobacco user (170244099) Cigarette nicotine dependence without complication (F17.210) Active confirmed Problem Acute myocardial infarction (disorder) (39873006) Acute myocardial infarction, unspecified [place] type, unspecified artery (I21.9) Active confirmed Problem Atherosclerotic heart disease of [place] coronary artery without angina pectoris (534108925509214) CAD in [place] artery (I25.10) Active confirmed Vital Signs Heart Rate 64 /min 2025 Blood pressure diastolic 70 mm Hg 2025 Height 65 in 2025 Blood pressure systolic 130 mm Hg 2025 Weight 175 lbs 2025 BMI 29.12 kg/m2 2025 Encounters Encounter Location Date [facility] [address] [place] [id number] 07/02/2024 Elpidio [place] CAD in [place] artery I25.10 ; BRBPR (bright red blood per rectum) K62.5 ; SOB (shortness of breath) R06.02 ; Vitamin D deficiency E55.9 ; Vitamin B12 deficiency E53.8 ; Acquired hypothyroidism E03.9 ; History of colon cancer Z85.038 and Essential (primary) hypertension I10 [facility] [address] [place] [id number] 09/22/2024 Elpidio [place] Acute cough R05.1 an d Wheeze R06.2 [facility] [address] [place] [id number] 10/02/2024 Elpidio [place] Community acquired pneumonia, unspecified laterality J18.9 and Anemia, unspecified type D64.9 [facility] [address] [place] [id number] 10/23/2024 Elpidio [place] Anemia, unspecified type D64.9 and Vitamin D deficiency E55.9 [facility] [address] [place] [id number] 2025 Elpidio [place] Essential (primary) hypertension I10 ; Acquired hypothyroidism E03.9 ; Anemia, unspecified type D64.9 ; Vitamin D deficiency E55.9 ; 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.8 ; Upper respiratory tract infection, unspecified type J06.9 ; CAD in [place] artery I25.10 ; Atrial fibrillation with RVR I48.91 and BMI 29.0-29.9,adult Z68.29 [facility] [address] [place] [id number] 06/23/2024 [facility]pid[facility] [place] [facility] [address] [place] [id number] 07/03/2024 Elpidio [place] Acquired hypothyroid ism E03.9 [facility] [address] [place], [place] [id number] 09/28/2024 Elpidio Quinteros Assessments Encounter Date Diagnosis (ICD Code) Assessment Notes Treatment Notes Treatment Clinical Notes Section Notes 07/02/2024 BRBPR (bright red blood per rectum) (ICD-10 - K62.5) 07/02/2024 CAD in [place] artery (ICD-10 - I25.10) 07/03/2024 Acquired hypothyroidism (ICD-10 - E03.9) 09/22/2024 Wheeze (ICD-10 - R06.2) 09/22/2024 Acute cough (ICD-10 - R05.1) 10/02/2024 Anemia, unspecified type (ICD-10 - D64.9) H/H has improved, plan to recheck in 3 or 4 weeks 10/02/2024 Community acquired pneumonia, unspecified laterality (ICD-10 - J18.9) Clinically resolved 10/23/2024 Vitamin D deficiency (ICD-10 - E55.9) 10/23/2024 Anemia, unspecified type (ICD-10 - D64.9) CBC results reviewed, [facility] is going to recheck CBC in 2 weeks[address] She has seen Dr. Arroyo and her prefers to defer colonoscopy if possible 2025 Essential (primary) hypertension (ICD-10 - I10) 2025 Acquired hypothyroidism (ICD-10 - E03.9) 2025 Anemia, unspecified type (ICD-10 - D64.9) 07/02/2024 SOB (shortness of breath) (ICD-10 - R06.02) 07/02/2024 Vitamin D deficiency (ICD-10 - E55.9) 2025 Vitamin D deficiency (ICD-10 - E55.9) 2025 Vitamin B 12 deficiency (ICD-10 - E53.8) 07/02/2024 Vitamin B12 deficiency (ICD-10 - E53.8) 07/02/2024 Acquired hypothyroidism (ICD-10 - E03.9) 2025 Upper respiratory tract infection, unspecified type (ICD-10 - J06.9) 2025 CAD in [place] artery (ICD-10 - I25.10) 07/02/2024 History of colon cancer (ICD-10 - Z85.038) 2025 Atrial fibrillation with RVR (ICD-10 - I48.91) 2025 BMI 29.0-29.9,adult (ICD-10 - Z68.29) 07/02/2024 Essential (primary) hypertension (ICD-10 - I10) 09/22/2024 Other CXR and CBC personally reviewed Plan Of Treatment Pending Test Test Name Order Date Mammogram 03/12/2025 P-BNP (Brain Natriuretic Peptide) 2023 Next Appt Details Provider Name:Elpidio Rogers ry, 07/22/2025 09:30:00 AM, [address], [address], [place], [place], [id number], Insurance Providers Payer Name Payer Address Payer Phone Subscriber Number Group Number Insured Name Patient Relationship to Insured Coverage Start Date Coverage End Date [employer] (MEDICAR E) [address] [address] [place] [phone] [id number] Lucina Sharma Self - patient is the insured Medical (General) History Medical History History ICD Code 45 Year Smoking Hx, Quit Smoking in 2013 Colon Cancer, 2017 Coronary Artery Disease Myocardial Infarction Hypertension Vitamin D deficiency Vitamin B 12 deficiency Atrial fibrillation Surgical History Surgery Date(Month/Year) Cholecystectomy Kidney Stone Removal Colonoscopy, Dr. 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
== END 2025-03-25 23:59 | disposition home or self-care (01) ==
LOC: RAD 10:44
PROVIDERS: PCP Family Medicine; Visit Provider Family Medicine
DX: Z12.31 Encounter for screening mammogram for malignant neoplasm of breast (principal); R92.333 Mammographic heterogeneous density, bilateral breasts
CPT/HCPCS: 77063; 77067

== ENCOUNTER 2025-07-30 10:14 | Outpatient (CLI) | payer MEDICARE, SELFPAY ==
[2025-07-30 10:59] LABS: Hematocrit 52.6 % (37.0-47.0); Hemoglobin 14.9 g/dL (12.2-16.2); Immature Granulocytes % 0.3 %; Mean Corpuscular HGB Conc 28.3 g/dL (31.8-35.4); Mean Corpuscular Hemoglobin 27.0 pg (27.0-31.2); Mean Corpuscular Volume 95.3 fl (81-99); Nucleated Red Blood Cells % 0 %; Platelet Count 121 K/mm3 (142-424); Red Blood Count 5.52 M/mm3 (4.20-5.40); Red Cell Distribution Width-SD 47.6 fL; White Blood Count 9.6 K/mm3 (4.8-10.8)
[2025-07-30 11:14] LABS: Albumin Level 5.1 g/dl (3.5-5.0); Chloride 102 mmol/L (98-107); Potassium 4.5 mmoL/L (3.5-5.1); Sodium 140 mmol/L (136-145)
[2025-07-30 11:16] LABS: Bilirubin,Unconjugated 0.6 mg/dL (0.0-1.1); Blood Urea Nitrogen 15 mg/dl (7-17); Creatinine,Serum 1.00 mg/dl (0.52-1.04); Estimated Glomerular Filt Rate 53 ml/min (>60); GFR (African American) 65 ML/MIN (>60)
[2025-07-30 11:17] LABS: Alanine Aminotransferase 19 U/L (12-78); Alkaline Phosphatase 128 U/L (38-126); Anion Gap 15.5 mEq/L (5-15); Aspartate Amino Transferase 27 U/L (14-36); Bilirubin,Direct 0.1 mg/dl (0.0-0.4); Bilirubin,Indirect 0.6 mg/dL (0.0-0.9); Bilirubin,Total 0.7 mg/dl (0.2-1.3); Calcium 9.1 mg/dl (8.4-10.2); Carbon Dioxide 27 mmol/L (22.0-30.0); Cholesterol 91 mg/dl (140-200); Glucose 129 mg/dl (74-100); Iron 248 ug/dL (37-170); Magnesium 2.2 mg/dl (1.6-2.3); Total Protein,Serum 7.5 g/dl (6.3-8.2); Triglycerides 106 mg/dl (30-150)
[2025-07-30 11:18] LABS: HDL Cholesterol 51 mg/dl (40-60)
[2025-07-30 11:28] LABS: Total Iron Binding Capacity 325 ug/dL (265-497)
[2025-07-30 11:34] LABS: Free T4 (Free Thyroxine) 1.42 ng/dl (0.78-2.19)
[2025-07-30 11:49] LABS: Thyroid Stimulating Hormone 1.75 uIU/mL (0.465-4.68)
[2025-07-30 11:50] LABS: Hemoglobin A1C 6.3 % (4.0-6.0)
[2025-07-30 11:53] LABS: Ferritin 15.0 ng/ml (11.1-264)
[2025-07-30 12:36] LABS: Folate 16.50 ng/mL
== END 2025-07-30 23:59 | disposition home or self-care (01) ==
LOC: LAB 10:15
PROVIDERS: PCP Family Medicine; Visit Provider Nurse Practitioner
DX: I25.10 Atherosclerotic heart disease of native coronary artery without angina pectoris (principal); D64.9 Anemia, unspecified; R73.09 Other abnormal glucose
CPT/HCPCS: 36415; 80048; 80061; 80076; 82728; 82746; 83036; 83540; 83550; 83735; 84439; 84443; 85025